=== PATIENT | male | born 1960 | race Caucasian/White ===

== ENCOUNTER → 2019-05-29 | Outpatient (CLI) | payer MEDICAID ==
[2019-05-29 12:39] LABS: Appearance,Urine Clear (Clear); Bilirubin,Urine Negative (Negative); Blood,Urine Negative (Negative); Color,Urine Light Yellow; Glucose,Urine (UA) 4+ (Negative); Hyaline Casts,Urine 1 /lpf (0-2); Ketones,Urine Negative (Negative); Leukocyte Esterase,Urine Negative (Negative); Mucus,Urine Rare /hpf; Nitrite,Urine Negative (Negative); PH, Urine 5.5 (5.0-8.0); Protein,Urine 1+ (Negative); RBC,Urine 1 /hpf (0-5); Specific Gravity,Urine 1.008 (1.001-1.035); Squamous Epithelial Cell,Urine <1 /hpf (0-4); Urobilinogen,Urine <2.0 mg/dL (<2.0)
[2019-05-29 16:56] LABS: African American GFR (CKD) 35.5 (60.0-200.0); Calcium 9.4 mg/dL (8.7-10.3); Non-African American GFR(CKD) 30.6 (60.0-200.0); Phosphorus 3.2 mg/dL (2.4-5.1); Potassium 4.2 mmol/L (3.5-5.5); Uric Acid 8.6 mg/dL (3.7-8.7)
== END | disposition home or self-care (01) ==
LOC: LABWHC1 11:41
PROVIDERS: ATTEND Internal Medicine
DX: M10.9 Gout, unspecified (principal); D63.1 Anemia in chronic kidney disease; N18.3 Chronic kidney disease, stage 3 (moderate); E55.9 Vitamin D deficiency, unspecified
CPT/HCPCS: 36415; 80048; 81001; 82043; 82306; 82570; 83970; 84100; 84550

== ENCOUNTER → 2020-04-19 | Outpatient (CLI) | payer MEDICAID ==
[2020-04-19 10:34] LABS: Basophils # (A) 0.1 k/uL (0-0.2); Basophils % (A) 1 %; Eosinophils # (A) 0.2 k/uL (0-0.7); Eosinophils % (A) 3 %; HCT 46.9 % (39.0-53.0); Lymphocytes # (A) 1.3 k/uL (1.0-4.8); Lymphocytes % (A) 21 %; MCH 29.4 pg (25.0-35.0); MCHC 32.1 g/dL (31.0-37.0); MCV 91.7 fL (80.0-100.0); Mean Platelet Volume 6.8; Monocytes # (A) 0.3 k/uL (0-1.0); Monocytes % (A) 5 %; Neutrophils # (A) 4.5 k/uL (1.3-7.7); Neutrophils % (A) 69 %; Platelet Count 192 k/uL (150-450); RBC 5.11 m/uL (4.30-5.90); RDW 14.2 % (11.5-15.5); WBC 6.4 k/uL (3.8-10.6)
[2020-04-19 10:53] LABS: Appearance,Urine Clear (Clear); Bilirubin,Urine Negative (Negative); Blood,Urine Negative (Negative); Color,Urine Light Yellow; Glucose,Urine (UA) Negative (Negative); Ketones,Urine Negative (Negative); Leukocyte Esterase,Urine Negative (Negative); Nitrite,Urine Negative (Negative); Protein,Urine Negative (Negative); Specific Gravity,Urine 1.009 (1.001-1.035); Urobilinogen,Urine <2.0 mg/dL (<2.0)
[2020-04-19 11:14] LABS: Creatinine,Urine Random 59.8 mg/dL; Protein/Creatinine Ratio,Urine 0.334
[2020-04-19 15:29] LABS: % Iron Saturation 27.76 (15.00-50.00); African American GFR (CKD) 35.2 (60.0-200.0); Albumin 4.2 g/dL (3.80-4.90); BUN/Creat Ratio 17.39 Ratio (12.00-20.00); Calcium 9.8 mg/dL (8.7-10.3); Magnesium 2.3 mg/dL (1.5-2.4); Non-African American GFR(CKD) 30.4 (60.0-200.0); Phosphorus 3.5 mg/dL (2.4-5.1); Potassium 4.2 mmol/L (3.5-5.5); Uric Acid 6.6 mg/dL (3.7-8.7)
[2020-04-19 15:37] LABS: Ferritin 199.6 ng/mL (22.0-322.0)
== END | disposition home or self-care (01) ==
LOC: LABWHC1 09:44
PROVIDERS: ATTEND Nurse Practitioner Adult Health
DX: N18.30 Chronic kidney disease, stage 3 unspecified (principal)
CPT/HCPCS: 36415; 80048; 81003; 82040; 82306; 82570; 82728; 83540; 83550; 83735; 83970; 84100; 84156; 84550; 85025

== ENCOUNTER → 2020-05-10 | Outpatient (CLI) | payer MEDICAID ==
--- NOTE | 2020-05-10 15:50 | US ---
EXAMINATION TYPE: US kidneys/renal and bladder DATE OF EXAM: 05/10/2020 COMPARISON: NONE CLINICAL HISTORY: N18.3 CKD. renal cell carcinoma on the right side, surgery 1999, patient states his left renal has always been smaller in size EXAM MEASUREMENTS: Right Kidney: 10.0 x 5.4 x 4.8 cm Left Kidney: 8.6 x 4.4 x 4.7 cm Right Kidney: lobular contour from surgery in 1999, otherwise wnl Left Kidney: smaller in size, no hydronephrosis or masses seen Bladder: wnl Bilateral Jets seen: Yes incidental finding of enlarged spleen = 15.2cm, when asking patient he states this is nothing new. There is no evidence for hydronephrosis at this point in time. No nephrolithiasis is seen. No nathaly s are identified. The urinary bladder is anechoic. Bilateral ureteral jets are seen. IMPRESSION: Postoperative changes right kidney. Splenomegaly is noted.
== END | disposition home or self-care (01) ==
LOC: RADUSWWP 15:12
PROVIDERS: ATTEND Internal Medicine
DX: R16.1 Splenomegaly, not elsewhere classified (principal); N18.30 Chronic kidney disease, stage 3 unspecified; Z98.890 Other specified postprocedural states
CPT/HCPCS: 76770

== ENCOUNTER → 2020-08-08 | Outpatient (CLI) | payer MEDICAID ==
[2020-08-08 17:03] LABS: Appearance,Urine Clear (Clear); Bilirubin,Urine Negative (Negative); Blood,Urine Negative (Negative); Color,Urine Light Yellow; Glucose,Urine (UA) Negative (Negative); Ketones,Urine Negative (Negative); Leukocyte Esterase,Urine Negative (Negative); Nitrite,Urine Negative (Negative); Protein,Urine Negative (Negative); Specific Gravity,Urine 1.006 (1.001-1.035); Urobilinogen,Urine <2.0 mg/dL (<2.0)
[2020-08-09 00:55] LABS: Basophils # (A) 0.07 X 10*3/uL (0.00-0.10); Basophils % (A) 0.9 %; Eosinophils # (A) 0.12 X 10*3/uL (0.04-0.35); Eosinophils % (A) 1.6 %; HCT 45.5 % (39.6-50.0); HGB 14.9 g/dL (13.0-17.0); Lymphocytes # (A) 1.75 X 10*3/uL (0.90-5.00); MCH 30.2 pg (27.0-32.0); MCHC 32.7 g/dL (32.0-37.0); MCV 92.3 fL (80.0-97.0); Mean Platelet Volume 9.8 fL (9.5-12.2); Monocytes # (A) 0.46 X 10*3/uL (0.20-1.00); Neutrophils # (A) 5.14 X 10*3/uL (1.80-7.70); Neutrophils % (A) 67.5 %; Platelet Count 199 X 10*3/uL (140-440); RBC 4.93 X 10*6/uL (4.40-5.60); RDW 13.5 % (11.5-14.5); WBC 7.62 X 10*3/uL (4.50-10.00)
[2020-08-09 04:25] LABS: % Iron Saturation 40.77 (15.00-50.00); African American GFR (CKD) 39.3 (60.0-200.0); Albumin 4.4 g/dL (3.80-4.90); Anion Gap 8.5 mmol/L (4.00-12.00); BUN/Creat Ratio 17.14 Ratio (12.00-20.00); Calcium 9.3 mg/dL (8.7-10.3); Carbon Dioxide 29.5 mmol/L (21.6-31.8); Globulin 2.2 g/dL (1.6-3.3); Non-African American GFR(CKD) 33.9 (60.0-200.0); Phosphorus 3.4 mg/dL (2.4-5.1); Potassium 4.2 mmol/L (3.5-5.5); Total Bilirubin 0.6 mg/dL (0.2-1.2); Total Protein 6.6 g/dL (6.2-8.2); Uric Acid 6.7 mg/dL (3.7-8.7)
[2020-08-09 04:33] LABS: Ferritin 155.1 ng/mL (22.0-322.0)
[2020-08-09 06:43] LABS: Urine Creatinine 22.7 mg/dL
== END | disposition home or self-care (01) ==
LOC: LABWHC1 16:00
PROVIDERS: ATTEND Internal Medicine
DX: N18.30 Chronic kidney disease, stage 3 unspecified (principal); N39.0 Urinary tract infection, site not specified; D64.9 Anemia, unspecified; R80.9 Proteinuria, unspecified; N25.81 Secondary hyperparathyroidism of renal origin; E55.9 Vitamin D deficiency, unspecified; M10.9 Gout, unspecified
CPT/HCPCS: 36415; 80053; 81003; 82043; 82306; 82570; 82728; 83540; 83550; 83970; 84100; 84550; 85025

== ENCOUNTER → 2020-12-02 | Outpatient (CLI) | payer MEDICAID ==
[2020-12-02 11:46] LABS: Appearance,Urine Clear (Clear); Bilirubin,Urine Negative (Negative); Blood,Urine Negative (Negative); Color,Urine Light Yellow; Glucose,Urine (UA) Negative (Negative); Ketones,Urine Negative (Negative); Leukocyte Esterase,Urine Negative (Negative); Nitrite,Urine Negative (Negative); Protein,Urine Negative (Negative); Specific Gravity,Urine 1.008 (1.001-1.035); Urobilinogen,Urine <2.0 mg/dL (<2.0)
[2020-12-02 17:02] LABS: Basophils # (A) 0.06 X 10*3/uL (0.00-0.10); Basophils % (A) 0.9 %; Eosinophils % (A) 3.1 %; HGB 15.1 g/dL (13.0-17.0); Lymphocytes # (A) 1.48 X 10*3/uL (0.90-5.00); Lymphocytes % (A) 23.3 %; MCH 30.4 pg (27.0-32.0); MCHC 32.8 g/dL (32.0-37.0); MCV 92.7 fL (80.0-97.0); Mean Platelet Volume 9.9 fL (9.5-12.2); Monocytes # (A) 0.34 X 10*3/uL (0.20-1.00); Monocytes % (A) 5.4 %; Neutrophils # (A) 4.24 X 10*3/uL (1.80-7.70); Neutrophils % (A) 66.8 %; Platelet Count 179 X 10*3/uL (140-440); RBC 4.96 X 10*6/uL (4.40-5.60); RDW 13.3 % (11.5-14.5); WBC 6.35 X 10*3/uL (4.50-10.00)
[2020-12-02 17:26] LABS: % Iron Saturation 31.62 (15.00-50.00); Magnesium 2.4 mg/dL (1.5-2.4); Phosphorus 3.4 mg/dL (2.4-5.1); Uric Acid 6.7 mg/dL (3.7-8.7)
[2020-12-02 17:28] LABS: Urine Creatinine 34.4 mg/dL
[2020-12-02 17:36] LABS: Ferritin 174.1 ng/mL (22.0-322.0)
[2020-12-02 17:40] LABS: ALT 37 U/L (10-49); AST 24 U/L (14-35); African American GFR (CKD) 36.9 (60.0-200.0); Albumin/Globulin Ratio 1.67 (1.60-3.17); Alkaline Phosphatase 146 U/L (41-126); BUN/Creat Ratio 20.91 Ratio (12.00-20.00); C Reactive Protein <0.4 mg/dL (0.0-0.8); Calcium 9.3 mg/dL (8.7-10.3); Carbon Dioxide 31.2 mmol/L (21.6-31.8); Chloride 104 mmol/L (96-109); Chol/HDL Ratio 5.21; Cholesterol 125 mg/dL (0-200); Creatine Kinase 91 U/L (35-257); Globulin 2.7 g/dL (1.6-3.3); Glucose 148 mg/dL (70-110); LDL Cholesterol,Calculated 73.6 mg/dL (0.0-131.0); Non-African American GFR(CKD) 31.8 (60.0-200.0); Potassium 4.3 mmol/L (3.5-5.5); Prostate Specific Antigen 5.1 ng/mL (0.0-3.5); Sodium 141 mmol/L (135-145); Total Bilirubin 0.8 mg/dL (0.3-1.2); Total Protein 7.2 g/dL (6.2-8.2)
[2020-12-02 20:00] LABS: Erythrocyte Sedimentation Rate 12 mm/Hr (0-20)
== END | disposition home or self-care (01) ==
LOC: LABWHC1 10:05
PROVIDERS: ATTEND Internal Medicine
DX: Z13.220 Encounter for screening for lipoid disorders (principal); Z12.5 Encounter for screening for malignant neoplasm of prostate; R53.82 Chronic fatigue, unspecified; D64.9 Anemia, unspecified; N39.0 Urinary tract infection, site not specified; R80.9 Proteinuria, unspecified; N25.81 Secondary hyperparathyroidism of renal origin; E55.9 Vitamin D deficiency, unspecified; M10.9 Gout, unspecified; N18.32 Chronic kidney disease, stage 3b
CPT/HCPCS: 36415; 80053; 80061; 81003; 82043; 82306; 82550; 82570; 82728; 83540; 83550; 83735; 83970; 84100; 84153; 84443; 84550; 85025; 85652; 86140

== ENCOUNTER → 2021-04-16 | Outpatient (CLI) | payer MEDICAID ==
[2021-04-16 12:48] LABS: Basophils # (A) 0.1 k/uL (0-0.2); Basophils % (A) 1 %; Eosinophils # (A) 0.2 k/uL (0-0.7); Eosinophils % (A) 3 %; HCT 44.4 % (39.0-53.0); HGB 14.4 gm/dL (13.0-17.5); Lymphocytes # (A) 1.4 k/uL (1.0-4.8); Lymphocytes % (A) 21 %; MCH 30.4 pg (25.0-35.0); MCHC 32.5 g/dL (31.0-37.0); MCV 93.4 fL (80.0-100.0); Mean Platelet Volume 6.9; Monocytes # (A) 0.3 k/uL (0-1.0); Monocytes % (A) 4 %; Neutrophils # (A) 4.6 k/uL (1.3-7.7); Neutrophils % (A) 69 %; Platelet Count 167 k/uL (150-450); RBC 4.75 m/uL (4.30-5.90); RDW 13.7 % (11.5-15.5); WBC 6.6 k/uL (3.8-10.6)
[2021-04-16 13:13] LABS: Calcium 9.1 mg/dL (8.4-10.2); Potassium 4.3 mmol/L (3.5-5.1)
== END | disposition home or self-care (01) ==
LOC: LABPAT 11:34
PROVIDERS: ATTEND Urology
DX: Z01.812 Encounter for preprocedural laboratory examination (principal); C61 Malignant neoplasm of prostate
CPT/HCPCS: 80048; 85025; 86850; 86900; 86901

== ENCOUNTER 2021-04-25 10:08 | Day surgery (SDC) | payer MEDICAID ==
[2021-04-16 12:48] LABS: Basophils # (A) 0.1 k/uL (0-0.2); Basophils % (A) 1 %; Eosinophils # (A) 0.2 k/uL (0-0.7); Eosinophils % (A) 3 %; HCT 44.4 % (39.0-53.0); HGB 14.4 gm/dL (13.0-17.5); Lymphocytes # (A) 1.4 k/uL (1.0-4.8); Lymphocytes % (A) 21 %; MCH 30.4 pg (25.0-35.0); MCHC 32.5 g/dL (31.0-37.0); MCV 93.4 fL (80.0-100.0); Mean Platelet Volume 6.9; Monocytes # (A) 0.3 k/uL (0-1.0); Monocytes % (A) 4 %; Neutrophils # (A) 4.6 k/uL (1.3-7.7); Neutrophils % (A) 69 %; Platelet Count 167 k/uL (150-450); RBC 4.75 m/uL (4.30-5.90); RDW 13.7 % (11.5-15.5); WBC 6.6 k/uL (3.8-10.6)
[2021-04-16 13:13] LABS: Calcium 9.1 mg/dL (8.4-10.2); Potassium 4.3 mmol/L (3.5-5.1)
[2021-04-18 11:08] VITALS: BMI 30.5
--- NOTE | 2021-04-22 14:42 | P.GSHP ---
History of Present Illness H&P Date: 04/22/21 Chief Complaint: Prostate cancer The patient is a 60-year-old white male with significant lower urinary tract symptoms. He has been found to empty his bladder incompletely despite taking tamsulosin for over 5 years. His most recent postvoid residual was 294 mL. His PSA level has gradually risen to 5.1. He underwent a prostate ultrasound, revealing a prostate volume of 54 mL with a prominent median lobe. 2 of 12 biopsies showed low volume Peck 6 adenocarcinoma (right lateral base, right lateral mid). His Prolaris score is favorable (2.9). Oncologically, he is an excellent candidate for active surveillance. However, he has elected to undergo a nerve sparing robotic-assisted laparoscopic prostatectomy (RALP) both to eradicate the cancer and alleviate his obstructive voiding symptoms. - Constitutional Constitutional: Reports fatigue - Cardiovascular Cardiovascular: Reports edema, Reports high blood pressure - Genitourinary (Male) Genitourinary: Reports erectile dysfunction, Reports urinary hesitancy Past Medical History Past Medical History: Cancer, Diabetes Mellitus, Hearing Disorder / Deafness, Hyperlipidemia, Hypertension, Sleep Apnea/CPAP/BIPAP, Thyroid Disorder Additional Past Medical History / Comment(s): Slightly hard of hearing. Prostate cancer currently. Hx right kidney cancer (1999). CPAP use. Varicose veins. History of Any Multi-Drug Resistant Organisms: None Reported Past Surgical History: Hernia Repair Additional Past Surgical History / Comment(s): Partial right nephrectomy, hernia repair X2. Past Anesthesia/Blood Transfusion Reactions: No Reported Reaction Past Psychological History: No Psychological Hx Reported Smoking Status: Former smoker Past Alcohol Use History: None Reported Additional Past Alcohol Use History / Comment(s): Quit smoking in 1997. Past Drug Use History: None Reported - Past Family History Mother Family Medical History: Cancer Father Family Medical History: Cancer Medications and Allergies Home Medications Medication Instructions Recorded Confirmed Type Allopurinol [Zyloprim] 100 mg PO BID 04/18/21 04/18/21 History Aspirin 81 mg PO DAILY 04/18/21 04/18/21 History Atorvastatin Calcium [Lipitor] 10 mg PO DAILY 04/18/21 04/18/21 History Cholecalciferol [Vitamin D3 (25 50 mcg PO DAILY 04/18/21 04/18/21 History Mcg = 1000 Iu)] Cyanocobalamin (Vitamin B-12) 5,000 mcg PO DAILY 04/18/21 04/18/21 History [Vitamin B12] Dulaglutide [Trulicity] 1.5 mg SQ TU 04/18/21 04/18/21 History Enalapril Maleate 5 mg PO QAM 04/18/21 04/18/21 History Folic Acid-Vit B Complex-Vit C 1 mg PO DAILY 04/18/21 04/18/21 History [Nephrocaps] Furosemide(Unknown Dose) 1 tab PO DAILY PRN 04/18/21 04/18/21 History Insulin Detemir (Levemir) [Levemir] 50 unit SQ HS 04/18/21 04/18/21 History Levothyroxine Sodium [Synthroid] 75 mcg PO MOTUWETHFRSA 04/18/21 04/18/21 History Magnesium 400 mg PO DAILY 04/18/21 04/18/21 History Tamsulosin [Flomax] 0.4 mg PO DAILY 04/18/21 04/18/21 History calcitrioL [Calcitriol] 0.25 mcg PO DAILY 04/18/21 04/18/21 History Allergies Allergy/AdvReac Type Severity Reaction Status Date / Time No Known Allergies Allergy Verified 04/18/21 10:45 Surgical - Exam - General well developed, well nourished, no distress - Neck no masses, trachea midline - Respiratory normal respiratory effort - Abdomen Abdomen: soft, non tender, no guarding, no rigid, no rebound Hernia: none - Genitourinary normal penis with no external lesions, testicles non-tender - Rectum Rectum: normal sphincter tone, no masses, other (Prostate moderately enlarged but smooth) - Psychiatric oriented to time, oriented to person, oriented to place, speech is normal, memory intact Assessment and Plan (1) Malignant neoplasm of prostate Status: Acute Code(s): C61 - MALIGNANT NEOPLASM OF PROSTATE SNOMED Code(s): 270020184 Plan: Bilateral nerve sparing RALP. The procedure has been reviewed in detail with the patient and his . The anticipated perioperative course has been reviewed, as were potential risks which include anesthesia, bleeding, infection, neurovascular injury, bowel injury, urinary leak, vesical neck contracture, urinary incontinence, and erectile dysfunction. They understand the possibility that this will need to be converted to an open procedure. They're also aware of the unlikely but possible need for adjuvant therapy.
[~2021-04-25 10:08] MED LIST: HEPARIN SODIUM,PORCINE/PF 5,000 UNIT/0.5 ML SYRINGE SQ PRN
[2021-04-25] MEDS ORDERED: DEXAMETHASONE SOD PHOSPHATE 4 MG/ML 1 ML VIAL IV ONE (10:09)
[2021-04-25] MEDS ORDERED: ONDANSETRON 4 MG/2 ML VIAL IVP ONE (10:09)
[2021-04-25] MEDS ORDERED: SCOPOLAMINE 1.5MG/72HR PATCH TRANSDERM ONE (10:09)
[2021-04-25] MEDS ORDERED: MIDAZOLAM 2 MG/2 ML VIAL IV PRN (10:09)
[2021-04-25 11:19] LABS: Glucose,Whole Blood 129 mg/dL (75-99)
[2021-04-25] MEDS: LACTATED RINGERS 1,000 ML IV SCH (11:47)
[2021-04-25] MEDS ORDERED: LIDOCAINE 1% (10MG/ML) FOR IV START INTRADERMA ONE (11:48)
[2021-04-25] MEDS ORDERED: MIDAZOLAM 2 MG/2 ML VIAL IVP ONE (12:10)
[2021-04-25] MEDS ORDERED: fentaNYL (PF) 50 MCG/ML 2 ML AMP IVP ONE (12:10)
--- NOTE | 2021-04-25 12:49 | P.ANPRN ---
Procedure Note - Anesthesia - Nerve Block Performed Bilateral Erector Spinae Single Time Out Performed: Yes (1209) Date of Procedure: 04/25/21 Procedure Start Time: 12:10 Procedure Stop Time: 12:17 Location of Patient: PreOp Indication: Acute Post-Operative Pain, Requested by Surgeon Specifically requested for management of pain by DrCurtis: Luigi Sorensen Sedation Type: Sedate with meaningful contact maintained Preparation: Sterile Prep Position: Prone Needle Types: Pajunk Needle Gauge: 21 Ultrasound used to visualize needle placement: Yes Ultrasound used to observe medication spread: Yes Injectate: 0.5% Ropivacaine (see comment for volume) (15cc + 15cc nacl pf each side) Blood Aspirated: No Pain Paresthesia on Injection Noted: No Resistance on Injection: Normal Image Stored and Saved: Yes Events: Uneventful and Well Tolerated
[2021-04-25] MEDS ORDERED: MIDAZOLAM 2 MG/2 ML VIAL ONE (13:02)
[2021-04-25] MEDS ORDERED: GLYCOPYRROLATE 0.2 MG/ML 2 ML VIAL ONE (13:02)
[2021-04-25] MEDS ORDERED: fentaNYL (PF) 50 MCG/ML 2 ML AMP ONE (13:02)
[2021-04-25] MEDS ORDERED: HYDROmorphone (PF) 1 MG/ML ONE (13:02)
[2021-04-25] MEDS ORDERED: ROPIVACAINE 5 MG/ML 30 ML VIAL ONE (13:02)
[2021-04-25] MEDS ORDERED: NEOSTIGMINE 1 MG/ML 10 ML VIAL ONE (13:02)
[2021-04-25] MEDS ORDERED: SUCCINYLCHOLINE CHLORIDE 100 MG/5 ML SYR IV ONE (13:02)
[2021-04-25] MEDS ORDERED: SODIUM CHLORIDE 0.9% (PF) 10 ML VIAL ONE (13:02)
[2021-04-25] MEDS ORDERED: PROPOFOL 10 MG/ML 20 ML VIAL IV ONE (13:02)
[2021-04-25] MEDS ORDERED: LIDOCAINE 1% INJ 10MG/ML (20 ML MDV) ONE (13:02)
[2021-04-25] MEDS ORDERED: ROCURONIUM 10 MG/ML (5 ML VIAL) IV ONE (13:02)
[2021-04-25] MEDS ORDERED: BUPIVACAINE (PF) 0.25% 30 ML VIAL SQ ONE (13:51)
[2021-04-25] MEDS ORDERED: LACTATED RINGERS 1,000 ML IV ONE (15:02)
--- NOTE | 2021-04-25 17:23 | P.OP ---
Date of Procedure: 04/25/21 Preoperative Diagnosis: Adenocarcinoma of the prostate Postoperative Diagnosis: Same Procedure(s) Performed: Robotic-assisted laparoscopic prostatectomy (RALP) Anesthesia: RAUL Surgeon: Luigi Sorensen Estimated Blood Loss (ml): 100 IV fluids (ml): 1,500 Pathology: other (Prostate, seminal vesicles) Condition: stable Disposition: PACU Indications for Procedure: The patient is a 60-year-old white male with significant lower urinary tract symptoms. He has been found to empty his bladder incompletely despite taking tamsulosin for over 5 years. His most recent postvoid residual was 294 mL. His PSA level has gradually risen to 5.1. He underwent a prostate ultrasound, revealing a prostate volume of 54 mL with a prominent median lobe. 2 of 12 biopsies showed low volume Simms 6 adenocarcinoma (right lateral base, right lateral mid). His Prolaris score is favorable (2.9). Oncologically, he is an excellent candidate for active surveillance. However, he has elected to undergo a nerve sparing robotic-assisted laparoscopic prostatectomy (RALP) both to eradicate the cancer and alleviate his obstructive voiding symptoms. Operative Findings: Prominent median lobe. No evidence of extraprostatic disease. Description of Procedure: The patient was taken in the operating room and placed in the supine position. He was carefully positioned on a beanbag for stability. The abdomen and ex ternal genitalia were prepped and draped sterilely. A Nolasco catheter was inserted. The Veress needle was passed through the anterior abdominal wall immediately cephalad to the umbilicus, and insufflation was performed to a pressure of 20 mm Hg. Once insufflation was performed, the Veress needle was removed and a supraumbilical incision was made, through which an 8 mm camera port was placed. Under camera guidance, 3 8 mm robotic ports were placed, 2 on the left and one on the right. A 12 mm port was placed on the right lateral side for use as an case management assistant port. A 5 mm port was placed to the right of the camera port for suction. The patient was placed in Trendelenburg position, and docking was then performed to the [place] system utilizing a 4-arm approach. The abdomen was examined. The sigmoid colon was mobilized out of the pelvis. The peritoneum was incised lateral to the medial umbilical ligaments bilaterally, exposing the pubis. The peritoneum was then incised across the midline, allowing the bladder flap to be taken down. The endopelvic fascia was opened bilaterally, and muscular attachments from the urogenital diaphragm were swept away from the prostate. The vesical neck was incised transversely, down to the lumen. The Nolasco catheter was brought out through the anterior vesical neck incision and was used for traction. The patient was noted to have an enlarged median lobe. The posterior vesical neck was incised over the median lobe, and the median lobe was dissected away from the vesical neck. Dissection was then continued posteriorly, incising the anterior layer of the Denonvilliers fascia and exposing the vas deferens. Each were isolated and divided. Next, each of the seminal vesicles were dissected away from adjacent tissues, and vascular attac hments were cauterized and divided. The posterior leaf of Denonvilliers fascia was incised transversely, allowing entry into the plane between the prostate and rectum. With lateral spreading, this plane was developed down to the apex. This exposed the lateral vascular pedicles bilaterally. These were clipped and divided in an antegrade fashion, down to the apex. The use of electrocautery was minimized to prevent thermal damage to the nerves. The remaining apical attachments were swept away from the prostate. The dorsal venous complex was incised, as well as periurethral tissue. At this point, only the urethra remained intact. This was transected immediately distal to the prostatic apex using cold scissors. The specimen was placed within a specimen bag. The dorsal venous complex was sutured using a V-Loc suture in a running fashion. Some bleeding was noted from the left neurovascular bundle, and this was controlled by oversewing 3-0 Vicryl suture in a running fashion. A second V-Loc suture was then used to place the Jad stitch, incorporating the rhabdosphincter and the edge of Denonvilliers fascia. This allowed the bladder to be taken down to the urethra, leaving the vesical neck immediately adjacent to the urethra. The vesicourethral anastomosis was then performed using a V-Loc suture in a running fashion. The vesical neck was larger than the urethra, and the anastomosis was performed in a tennis racquet fashion. After completing the anastomosis, an 18-Sur[place]amese Nolasco catheter was placed and approximately 150 mL of 0.9 normal saline were instilled into the bladder. No extravasation of irrigant from the vesicourethral anastomosis was noted. A small amount of oozing was noted from the vascular pedicles, so Surgicel was placed bilaterally. Tisseel was sprayed into the pelvis over the vascular pedicles, dorsal vein, and vesicourethral anastomosis. The patient was returned to the supine position. Undocking was performed, and the specimen bag sutures were passed through the camera port. After removing all the ports and allowing all of the CO2 to be released from the peritoneal cavity, the camera port incision was enlarged to allow removal of the surgical specimen. The fascia of this incision was then closed using 0 PDS suture in a running fashion. Each of the skin incisions were then closed using 4-0 Monocryl suture in a subcuticular fashion. Marcaine was injected at each of the incision sites. Dermabond was applied to each incision. The Nolasco catheter was connected to gravity drainage. All sponge and needle counts were correct. The patient tolerated the procedure well was taken to the recovery room in stable condition.
[2021-04-25] MEDS ORDERED: KETOROLAC 15 MG/ML 1 ML VIAL IVP PRN (17:24)
[2021-04-25] MEDS ORDERED: ONDANSETRON 4 MG/2 ML VIAL IVP PRN (17:24)
[2021-04-25] MEDS ORDERED: HYDROmorphone 1 MG/ML 1 ML SYRINGE IVP PRN (17:24)
[2021-04-25] MEDS: HYDROmorphone 0.5 MG/0.5 ML SYRINGE IVP PRN ×2 (18:21→18:35)
[2021-04-25] MEDS: HEPARIN SODIUM,PORCINE/PF 5,000 UNIT/0.5 ML SYRINGE SQ SCH (20:08)
[2021-04-25] MEDS: allopurinoL 100 MG TAB PO SCH (20:08)
[2021-04-25] MEDS: SODIUM CHLORIDE 0.9% 1,000 ML IV SCH (20:14)
[2021-04-25] MEDS: INSULIN ASPART (NovoLOG) 100 UNIT/ML VIAL SQ SCH ×2 (20:45→22:39)
[2021-04-25 21:05] LABS: Glucose,Whole Blood 263 mg/dL (75-99)
[2021-04-26] MEDS: KETOROLAC 30 MG/ML 1 ML VIAL IVP PRN ×2 (04:30→12:11)
[2021-04-26] MEDS: SODIUM CHLORIDE 0.9% 1,000 ML IV SCH (04:30)
[2021-04-26] MEDS ORDERED: LEVOTHYROXINE 75 MCG TAB PO SCH (06:30)
[2021-04-26 07:48] LABS: Glucose,Whole Blood 118 mg/dL (75-99)
[2021-04-26] MEDS: INSULIN ASPART (NovoLOG) 100 UNIT/ML VIAL SQ SCH ×2 (08:02→13:31)
[2021-04-26] MEDS: allopurinoL 100 MG TAB PO SCH (08:03)
[2021-04-26] MEDS: HEPARIN SODIUM,PORCINE/PF 5,000 UNIT/0.5 ML SYRINGE SQ SCH (08:03)
[2021-04-26] MEDS ORDERED: lisinopriL 10 MG TAB PO SCH (09:00)
[2021-04-26] MEDS ORDERED: ATORVASTATIN 10 MG TAB PO SCH (09:00)
--- NOTE | 2021-04-26 10:58 | P.DS ---
Providers Expected date of discharge: 04/26/21 Attending physician: Luigi Sorensen Primary care physician: Heri Velez MD - Discharge Diagnosis(es) (1) Malignant neoplasm of prostate Current Visit: No Status: Acute Hospital Course: On the day of admission, the patient underwent an uncomplicated robotic-assisted laparoscopic prostatectomy (RALP). The postoperative course was unremarkable. The patient remained afebrile with stable vital signs. On the first postoperative day, he tolerated breakfast. He had ambulated a short distance without difficulty. He reported mild catheter discomfort, and minimal abdominal discomfort. On examination, the abdomen was soft and nondistended. The incisions were clean, dry, and intact. The Nolasco catheter was draining clear urine Procedures: Robotic-assisted laparoscopic prostatectomy (RALP) and 04/25/2021 Patient Condition at Discharge: Good Plan - Discharge Summary Discharge Rx Participant: Yes New Discharge Prescriptions: New Ciprofloxacin HCl [Cipro] 250 mg PO Q12HR #6 tablet Ketorolac [Toradol] 10 mg PO Q6HR PRN #12 tab PRN Reason: Pain No Action Aspirin 81 mg PO DAILY Allopurinol [Zyloprim] 100 mg PO BID Furosemide(Unknown Dose) 1 tab PO DAILY PRN PRN Reason: Swelling Cyanocobalamin (Vitamin B-12) [Vitamin B12] 5,000 mcg PO DAILY Insulin Detemir (Levemir) [Levemir] 50 unit SQ HS Cholecalciferol [Vitamin D3 (25 Mcg = 1000 Iu)] 50 mcg PO DAILY Tamsulosin [Flomax] 0.4 mg PO DAILY Levothyroxine Sodium [Synthroid] 75 mcg PO MOTUWETHFRSA Folic Acid-Vit B Complex-Vit C [Nephrocaps] 1 mg PO DAILY Atorvastatin Calcium [Lipitor] 10 mg PO DAILY calcitrioL [Calcitriol] 0.25 mcg PO DAILY Magnesium 400 mg PO DAILY Enalapril Maleate 5 mg PO QAM Dulaglutide [Trulicity] 1.5 mg SQ TU Discharge Medication List Allopurinol [Zyloprim] 100 mg PO BID 04/18/21 [History] Aspirin 81 mg PO DAILY 04/18/21 [History] Atorvastatin Calcium [Lipitor] 10 mg PO DAILY 04/18/21 [History] Cholecalciferol [Vitamin D3 (25 Mcg = 1000 Iu)] 50 mcg PO DAILY 04/18/21 [History] Cyanocobalamin (Vitamin B-12) [Vitamin B12] 5,000 mcg PO DAILY 04/18/21 [History] Dulaglutide [Trulicity] 1.5 mg SQ TU 04/18/21 [History] Enalapril Maleate 5 mg PO QAM 04/18/21 [History] Folic Acid-Vit B Complex-Vit C [Nephrocaps] 1 mg PO DAILY 04/18/21 [History] Furosemide(Unknown Dose) 1 tab PO DAILY PRN 04/18/21 [History] Insulin Detemir (Levemir) [Levemir] 50 unit SQ HS 04/18/21 [History] Levothyroxine Sodium [Synthroid] 75 mcg PO MOTUWETHFRSA 04/18/21 [History] Magnesium 400 mg PO DAILY 04/18/21 [History] Tamsulosin [Flomax] 0.4 mg PO DAILY 04/18/21 [History] calcitrioL [Calcitriol] 0.25 mcg PO DAILY 04/18/21 [History] Ciprofloxacin HCl [Cipro] 250 mg PO Q12HR #6 tablet 04/25/21 [Rx] Ketorolac [Toradol] 10 mg PO Q6HR PRN #12 tab 04/25/21 [Rx] Follow up Appointment(s)/Referral(s): Luigi Sorensen MD [STAFF PHYSICIAN] - 05/07/21 Activity/Diet/Wound Care/Special Instructions: Discharge home with Nolasco catheter. Instruct patient to use overnight drainage bag as well as urinary leg bag. Okay to shower. Diet as tolerated. No lifting, driving, or strenuous activity. Reassure patient that abdominal wall ecchymosis and penoscrotal swelling are normal. Instruct patient to begin taking antibiotics one day prior to Nolasco catheter removal. Patient may resume aspirin on 04/29/2021. He should no longer take tamsulosin. Discharge Disposition: HOME SELF-CARE
[2021-04-26] MEDS: LACTATED RINGERS 1,000 ML IV SCH (12:13)
[2021-04-26 12:18] LABS: Glucose,Whole Blood 126 mg/dL (75-99)
[2021-04-26 13:25] VITALS: BP 118/70; PULSE 87; RESP 17; TEMP 98
== END 2021-04-26 14:46 | disposition home or self-care (01) ==
LOC: OR 10:08 → 5NMEDONC 17:16 → OR 04-26 14:46
PROVIDERS: ATTEND Urology
DX: C61 Malignant neoplasm of prostate (principal); E11.9 Type 2 diabetes mellitus without complications; E78.5 Hyperlipidemia, unspecified; I10 Essential (primary) hypertension; E07.9 Disorder of thyroid, unspecified; Z20.822 Contact with and (suspected) exposure to COVID-19; Z87.891 Personal history of nicotine dependence
CPT/HCPCS: 55866; 86900; 86901; 80048; 85025; 86850; 87635; J2250; J1100; J0690; J2405; J3010; J1170; J1644; 64999

== ENCOUNTER 2021-06-03 21:00 | Inpatient (IN) | payer MEDICAID ==
[2021-06-03] MEDS ORDERED: ONDANSETRON 4 MG/2 ML VIAL IVP STA (22:06)
[2021-06-03] MEDS ORDERED: SODIUM CHLORIDE 0.9% 1,000 ML IV STA (22:06)
[2021-06-03] MEDS ORDERED: PANTOPRAZOLE 40 MG/10 ML VIAL IVP STA (22:06)
[2021-06-03 22:38] LABS: Basophils # (A) 0.1 k/uL (0-0.2); Basophils % (A) 1 %; Eosinophils # (A) 0.2 k/uL (0-0.7); Eosinophils % (A) 1 %; HGB 12.3 gm/dL (13.0-17.5); Lymphocytes # (A) 1.7 k/uL (1.0-4.8); Lymphocytes % (A) 10 %; MCH 30.6 pg (25.0-35.0); MCHC 32.4 g/dL (31.0-37.0); MCV 94.3 fL (80.0-100.0); Mean Platelet Volume 7.4; Monocytes # (A) 0.5 k/uL (0-1.0); Monocytes % (A) 3 %; Neutrophils # (A) 14.1 k/uL (1.3-7.7); Neutrophils % (A) 85 %; Platelet Count 202 k/uL (150-450); RBC 4.03 m/uL (4.30-5.90); RDW 13.9 % (11.5-15.5); WBC 16.7 k/uL (3.8-10.6)
[2021-06-03 22:55] LABS: Partial Thromboplastin Time 20.9 sec (22.0-30.0); Prothrombin Time 10.9 sec (9.0-12.0)
[2021-06-03 23:23] LABS: Albumin 3.1 g/dL (3.5-5.0); Calcium 8.8 mg/dL (8.4-10.2); Magnesium 1.8 mg/dL (1.6-2.3); Potassium 5.4 mmol/L (3.5-5.1); Total Bilirubin 0.4 mg/dL (0.2-1.3); Total Protein 5.4 g/dL (6.3-8.2)
--- NOTE | 2021-06-03 23:59 | CT ---
EXAMINATION TYPE: CT abdomen pelvis wo con DATE OF EXAM: 06/03/2021 COMPARISON: None HISTORY: GI bleed. CT DLP: 726.6 mGycm Automated exposure control for dose reduction was used. Images obtained from the diaphragm to the floor the pelvis with no contrast. Lung bases are clear of infiltrate. There is no pleural effusion. Heart size is normal. There is no p ericardial effusion. Liver spleen and stomach pancreas appear intact. The bowel gas are not dilated. Gallbladder appears n ormal. There is no adrenal mass. There are some surgical clips in the retroperitoneum on the right side abov e the right kidney. Kidneys have normal size. There is no hydronephrosis. Ureters are not dilated. Th ere is no retroperitoneal adenopathy. Bladder distends smoothly. There is no inguinal hernia. There i s no free fluid in the pelvis. There is no evidence of a pelvic mass. There is large appendix measuring 12 mm but no sign of inflammation. There is no mesenteric edema. There is no ascites or free air. There is no bowel obstruction. There i s 1 cm umbilical hernia that contains fat. The lumbar vertebrae have normal alignment. There is no compression fracture. Bony pelvis is intact. The hip joints are intact. IMPRESSION: Large air-filled appendix but no sign of inflammation. No renal stone or obstruction. Distended gas-f illed large bowel consistent with a mild ileus.
[2021-06-04] MEDS ORDERED: ONDANSETRON 4 MG/2 ML VIAL IVP PRN (00:45)
[2021-06-04] MEDS ORDERED: NALOXONE 0.4 MG/ML 1 ML VIAL IV PRN (00:45)
--- NOTE | 2021-06-04 00:51 | ED ---
GI Bleed HPI - General Chief complaint: GI Bleed Stated complaint: possible GI bleed Time Seen by Provider: 06/03/21 21:55 Source: patient, RN notes reviewed Mode of arrival: ambulatory Limitations: no limitations - History of Present Illness Initial comments: Patient is a 60-year-old male that presents to the emergency department for possible GI bleed. Patient notes that he had a bowel movement late last night noted some blood in the toilet red notes that she could smell from the living room and thought that it smelled kind of flung he so she came to the emergency room. Patient did have a prostatectomy approximately 1-2 months ago. Patient notes no abdominal pain nausea or vomiting. He does notes the blood in his stool with a darker color stool. Patient denied any chest pain shortness of breath headache diarrhea constipation fever fatigue chills. - Related Data Home Medications Medication Instructions Recorded Confirmed Allopurinol [Zyloprim] 100 mg PO BID 04/18/21 06/03/21 Aspirin 81 mg PO DAILY 04/18/21 06/03/21 Atorvastatin Calcium [Lipitor] 10 mg PO DAILY 04/18/21 06/03/21 Cholecalciferol [Vitamin D3 (25 50 mcg PO DAILY 04/18/21 06/03/21 Mcg = 1000 Iu)] Cyanocobalamin (Vitamin B-12) 5,000 mcg PO DAILY 04/18/21 06/03/21 [Vitamin B12] Dulaglutide [Trulicity] 1.5 mg SQ TU 04/18/21 06/03/21 Enalapril Maleate 5 mg PO DAILY 04/18/21 06/03/21 Folic Acid-Vit B Complex-Vit C 1 mg PO DAILY 04/18/21 06/03/21 [Nephrocaps] Levothyroxine Sodium [Synthroid] 75 mcg PO MOTUWETHFRSA 04/18/21 06/03/21 Magnesium 400 mg PO DAILY 04/18/21 06/03/21 Tamsulosin [Flomax] 0.4 mg PO DAILY 04/18/21 06/03/21 Furosemide [Lasix] 40 mg PO Q48H 06/03/21 06/03/21 Insulin Detemir [Levemir Flextouch 30 units SQ HS 06/03/21 06/03/21 Pen] Ketorolac [Toradol] 10 mg PO Q6H PRN 06/03/21 06/03/21 calcitrioL [Calcitriol] 0.5 mcg PO HOWARD 06/03/21 06/03/21 Allergies Allergy/AdvReac Type Severity Reaction Status Date / Time No Known Allergies Allergy Verified 06/03/21 22:45 Review of Systems ROS Statement: Those systems with pertinent positive or pertinent negative responses have been documented in the HPI. ROS Other: All systems not noted in ROS Statement are negative. Past Medical History Past Medical History: Diabetes Mellitus, Hypertension Additional Past Medical History / Comment(s): Partial nephrectomy. History of Any Multi-Drug Resistant Organisms: None Reported Past Surgical History: No Surgical Hx Reported, Prostate Surgery Additional Past Surgical History / Comment(s): partial nephrectomy. hernia Repair. Past Psychological History: No Psychological Hx Reported Smoking Status: Never smoker Past Alcohol Use History: None Reported Past Drug Use History: None Reported General Exam Limitations: no limitations General appearance: alert, in no apparent distress Head exam: Present: atraumatic, normocephalic, normal inspection Eye exam: Present: normal appearance, PERRL, EOMI. Absent: scleral icterus, conjunctival injection, periorbital swelling ENT exam: Present: normal exam, mucous membranes moist Neck exam: Present: normal inspection Respiratory exam: Present: normal lung sounds bilaterally. Absent: respiratory distress, wheezes, rales, rhonchi, stridor Cardiovascular Exam: Present: regular rate, normal rhythm, normal heart sounds. Absent: systolic murmur, diastolic murmur, rubs, gallop, clicks GI/Abdominal exam: Present: soft, normal bowel sounds. Absent: distended, tenderness, guarding, rebound, rigid Rectal exam: Present: normal inspection, normal rectal tone, heme (+) stool, bloody stool. Absent: fecal impaction, hemorrhoids, mass, tenderness Extremities exam: Present: normal inspection, full ROM, normal capillary refill. Absent: tenderness, pedal edema, joint swelling, calf tenderness Neurological exam: Present: alert, oriented X3 Psychiatric exam: Present: normal affect, normal mood Skin exam: Present: warm, dry, intact, normal color. Absent: rash Course Vital Signs 06/03/21 06/03/21 06/03/21 21:14 23:23 23:24 Temperature 97.8 F Pulse Rate 117 H 96 80 Respiratory 20 18 16 Rate Blood Pressure 84/59 105/47 96/62 O2 Sat by Pulse 100 99 98 Oximetry 06/04/21 00:40 Temperature Pulse Rate 92 Respiratory 18 Rate Blood Pressure 113/67 O2 Sat by Pulse 97 Oximetry Medical Decision Making - Medical Decision Making 60-year-old male complaining of possible GI bleed. Patient only takes baby aspirin. Labs, 1 L normal saline, 4 mg of Zofran, 40 mg of pantoprazole, CT of the abdomen and pelvis ordered. Labs: White blood cells 16.7, hemoglobin 12.3 a 2 g drop in just over a month, CMP shows poor kidney function. Occult blood positive Computed tomography scan shows a air-filled appendix but no inflammation, no other acute process. Given positive occult blood and drop in hemoglobin patient will be admitted to hospital. Case discussed with Dr. Manfred Valerio was consulted from [facility] on Consult. - Lab Data Result diagrams: 06/03/21 22:16 06/03/21 22:16 Lab Results 06/03/21 06/03/21 06/03/21 Range/Units 22:16 22:16 22:16 WBC 16.7 H (3.8-10.6) k/uL RBC 4.03 L (4.30-5.90) m/uL Hgb 12.3 L (13.0-17.5) gm/dL Hct 38.0 L (39.0-53.0) % MCV 94.3 (80.0-100.0) fL MCH 30.6 (25.0-35.0) pg MCHC 32.4 (31.0-37.0) g/dL RDW 13.9 (11.5-15.5) % Plt Count 202 (150-450) k/uL MPV 7.4 Neutrophils % 85 % Lymphocytes % 10 % Monocytes % 3 % Eosinophils % 1 % Basophils % 1 % Neutrophils # 14.1 H (1.3-7.7) k/uL Lymphocytes # 1.7 (1.0-4.8) k/uL Monocytes # 0.5 (0-1.0) k/uL Eosinophils # 0.2 (0-0.7) k/uL Basophils # 0.1 (0-0.2) k/uL PT 10.9 (9.0-12.0) sec INR 1.0 (<1.2) APTT 20.9 L (22.0-30.0) sec Sodium (137-145) mmol/L Potassium (3.5-5.1) mmol/L Chloride (98-107) mmol/L Carbon Dioxide (22-30) mmol/L Anion Gap mmol/L BUN (9-20) mg/dL Creatinine (0.66-1.25) mg/dL Est GFR (CKD-EPI)AfAm (>60 ml/min/1.73 sqM) Est GFR (CKD-EPI)NonAf (>60 ml/min/1.73 sqM) Glucose (74-99) mg/dL Plasma Lactic Acid Shant (0.7-2.0) mmol/L Calcium (8.4-10.2) mg/dL Magnesium (1.6-2.3) mg/dL Total Bilirubin (0.2-1.3) mg/dL AST (17-59) U/L ALT (4-49) U/L Alkaline Phosphatase (38-126) U/L Troponin I (0.000-0.034) ng/mL Total Protein (6.3-8.2) g/dL Albumin (3.5-5.0) g/dL Lipase (23-300) U/L Stool Occult Blood Positive (Negative) Blood Type Blood Type Recheck Bld Type Recheck Status Antibody Screen Spec Expiration Date 06/03/21 06/03/21 06/03/21 Range/Units 22:16 22:16 22:16 WBC (3.8-10.6) k/uL RBC (4.30-5.90) m/uL Hgb (13.0-17.5) gm/dL Hct (39.0-53.0) % MCV (80.0-100.0) fL MCH (25.0-35.0) pg MCHC (31.0-37.0) g/dL RDW (11.5-15.5) % Plt Count (150-450) k/uL MPV Neutrophils % % Lymphocytes % % Monocytes % % Eosinophils % % Basophils % % Neutrophils # (1.3-7.7) k/uL Lymphocytes # (1.0-4.8) k/uL Monocytes # (0-1.0) k/uL Eosinophils # (0-0.7) k/uL Basophils # (0-0.2) k/uL PT (9.0-12.0) sec INR (<1.2) APTT (22.0-30.0) sec Sodium 131 L (137-145) mmol/L Potassium 5.4 H (3.5-5.1) mmol/L Chloride 98 (98-107) mmol/L Carbon Dioxide 25 (22-30) mmol/L Anion Gap 8 mmol/L BUN 59 H (9-20) mg/dL Creatinine 2.23 H (0.66-1.25) mg/dL Est GFR (CKD-EPI)AfAm 36 (>60 ml/min/1.73 sqM) Est GFR (CKD-EPI)NonAf 31 (>60 ml/min/1.73 sqM) Glucose 454 H (74-99) mg/dL Plasma Lactic Acid Shant 1.8 (0.7-2.0) mmol/L Calcium 8.8 (8.4-10.2) mg/dL Magnesium 1.8 (1.6-2.3) mg/dL Total Bilirubin 0.4 (0.2-1.3) mg/dL AST 18 (17-59) U/L ALT 21 (4-49) U/L Alkaline Phosphatase 141 H (38-126) U/L Troponin I <0.012 (0.000-0.034) ng/mL Total Protein 5.4 L (6.3-8.2) g/dL Albumin 3.1 L (3.5-5.0) g/dL Lipase 360 H (23-300) U/L Stool Occult Blood (Negative) Blood Type Blood Type Recheck Bld Type Recheck Status Antibody Screen Spec Expiration Date 06/03/21 Range/Units 22:16 WBC (3.8-10.6) k/uL RBC (4.30-5.90) m/uL Hgb (13.0-17.5) gm/dL Hct (39.0-53.0) % MCV (80.0-100.0) fL MCH (25.0-35.0) pg MCHC (31.0-37.0) g/dL RDW (11.5-15.5) % Plt Count (150-450) k/uL MPV Neutrophils % % Lymphocytes % % Monocytes % % Eosinophils % % Basophils % % Neutrophils # (1.3-7.7) k/uL Lymphocytes # (1.0-4.8) k/uL Monocytes # (0-1.0) k/uL Eosinophils # (0-0.7) k/uL Basophils # (0-0.2) k/uL PT (9.0-12.0) sec INR (<1.2) APTT (22.0-30.0) sec Sodium (137-145) mmol/L Potassium (3.5-5.1) mmol/L Chloride (98-107) mmol/L Carbon Dioxide (22-30) mmol/L Anion Gap mmol/L BUN (9-20) mg/dL Creatinine (0.66-1.25) mg/dL Est GFR (CKD-EPI)AfAm (>60 ml/min/1.73 sqM) Est GFR (CKD-EPI)NonAf (>60 ml/min/1.73 sqM) Glucose (74-99) mg/dL Plasma Lactic Acid Shant (0.7-2.0) mmol/L Calcium (8.4-10.2) mg/dL Magnesium (1.6-2.3) mg/dL Total Bilirubin (0.2-1.3) mg/dL AST (17-59) U/L ALT (4-49) U/L Alkaline Phosphatase (38-126) U/L Troponin I (0.000-0.034) ng/mL Total Protein (6.3-8.2) g/dL Albumin (3.5-5.0) g/dL Lipase (23-300) U/L Stool Occult Blood (Negative) Blood Type O Positive Blood Type Recheck O Pos Bld Type Recheck Status No Antibody Screen NEGATIVE Spec Expiration Date 06/06/20212315 - Radiology Data Radiology results: report reviewed, image reviewed CT of the abdomen and pelvis: Large air-filled appendix but no sign of inflammation. No renal stones or obstruction. Distended gas-filled large bowel consistent with mild ileus. Disposition Clinical Impression: Hematochezia, Melena, GI bleed Disposition: ADMITTED IP TO THIS [facility] Condition: Stable Is patient prescribed a controlled substance at d/c from ED?: No Referrals: Heri Velez MD [Primary Care Provider] - 1-2 days Time of Disposition: 00:51
[2021-06-04] MEDS ORDERED: INSULIN ASPART (NovoLOG) 100 UNIT/ML VIAL SQ ONE (01:22)
--- NOTE | 2021-06-04 01:29 | P.HPIM ---
History of Present Illness H&P Date: 06/04/21 Chief Complaint: GI bleed 60 year old male with HTN, DM , CKD, prostate cancer patient comes in with sudden episode of fresh bright blood per rectum, without abd pain, patient became dizzy and lightheaded with some mild stomach growls . he never experienced anything like this before, he denies being on any blood thinners, and denies taking any NSAIDs except for Aspirin. denies recent travel, denies any unsanitary food patient had prostate surgery about a month ago , and blood work today showed a drop in hgb of 2 gms patient currently laying down comfortably , denies any chest pain , trouble breathing, dizziness, or abd pain , he denies any alcohol abuse, or history of stomach ulcers Patient reports multiple colonoscopies in the past, nothing other than benign polyps CT of the abd showed no acute pathology except for gas filled bowels Review of Systems Pertinent positives as noted in HPI. All other systems were reviewed and are negative Past Medical History Past Medical History: Diabetes Mellitus, Hypertension Additional Past Medical History / Comment(s): Partial nephrectomy. History of Any Multi-Drug Resistant Organisms: None Reported Past Surgical History: No Surgical Hx Reported, Prostate Surgery Additional Past Surgical History / Comment(s): partial nephrectomy. hernia Repair. Past Psychological History: No Psychological Hx Reported Smoking Status: Never smoker Past Alcohol Use History: None Reported Past Drug Use History: None Reported Medications and Allergies Home Medications Medication Instructions Recorded Confirmed Type Allopurinol [Zyloprim] 100 mg PO BID 04/18/21 06/03/21 History Aspirin 81 mg PO DAILY 04/18/21 06/03/21 History Atorvastatin Calcium [Lipitor] 10 mg PO DAILY 04/18/21 06/03/21 History Cholecalciferol [Vitamin D3 (25 50 mcg PO DAILY 04/18/21 06/03/21 History Mcg = 1000 Iu)] Cyanocobalamin (Vitamin B-12) 5,000 mcg PO DAILY 04/18/21 06/03/21 History [Vitamin B12] Dulaglutide [Trulicity] 1.5 mg SQ TU 04/18/21 06/03/21 History Enalapril Maleate 5 mg PO DAILY 04/18/21 06/03/21 History Folic Acid-Vit B Complex-Vit C 1 mg PO DAILY 04/18/21 06/03/21 History [Nephrocaps] Levothyroxine Sodium [Synthroid] 75 mcg PO MOTUWETHFRSA 04/18/21 06/03/21 History Magnesium 400 mg PO DAILY 04/18/21 06/03/21 History Tamsulosin [Flomax] 0.4 mg PO DAILY 04/18/21 06/03/21 History Furosemide [Lasix] 40 mg PO Q48H 06/03/21 06/03/21 History Insulin Detemir [Levemir Flextouch 30 units SQ HS 06/03/21 06/03/21 History Pen] Ketorolac [Toradol] 10 mg PO Q6H PRN 06/03/21 06/03/21 History calcitrioL [Calcitriol] 0.5 mcg PO HOWARD 06/03/21 06/03/21 History Allergies Allergy/AdvReac Type Severity Reaction Status Date / Time No Known Allergies Allergy Verified 06/03/21 22:45 Physical Exam Vitals: Vital Signs Temp Pulse Resp BP Pulse Ox 06/04/21 00:40 92 18 113/67 97 06/03/21 23:24 80 16 96/62 98 06/03/21 23:23 96 18 105/47 99 06/03/21 21:14 97.8 F 117 H 20 84/59 100 Intake and Output 06/03/21 06/03/21 06/04/21 14:59 22:59 06:59 Other: Weight 86.183 kg Constitutional: No acute distress, conversant, pleasant Eyes: Anicteric sclerae, moist conjunctiva, Pupils equal round reactive to light ENMT: NC/AT Oropharynx clear, no erythema, or exudates Neck: Supple no masses, or JVD No carotid bruits No thyromegaly Lungs: Clear to auscultation Clear to percussion Normal respiratory effort, no accessory muscle use Cardiovascular: Heart regular in rate and rhythm, No murmurs, gallops, or rubs No peripheral edema Abdominal: mild distention, increase tympanic note percussion Nontender, no guarding, rebound or rigidity Abdomen moving with respiration Normoactive bowel sounds No hepatomegaly, No splenomegaly No palpable mass No abdominal wall hernia noted Skin: Normal temperature, tone, texture, turgor No induration No subcutaneous nodules No rash, lesions No ulcers Extremities: No digital cyanosis No clubbing Pedal pulses intact and symmetrical Radial pulses intact and symmetrical No calf tenderness Psychiatric: Alert and oriented to person, place and time Appropriate affect fair judgement Neuro Muscles Strength 5/5 in all 4 extremities Sensation to light touch grossly present throughout Cranial nerves II-XII grossly intact No focal sensory deficits Lymphatics: no palpable cervical or supraclavicular , or inguinal lymph nodes Results CBC & Chem 7: 06/03/21 22:16 06/03/21 22:16 Labs: Abnormal Lab Results - Last 24 Hours (Table) 06/03/21 06/03/21 06/03/21 Range/Units 22:16 22:16 22:16 WBC 16.7 H (3.8-10.6) k/uL RBC 4.03 L (4.30-5.90) m/uL Hgb 12.3 L (13.0-17.5) gm/dL Hct 38.0 L (39.0-53.0) % Neutrophils # 14.1 H (1.3-7.7) k/uL APTT 20.9 L (22.0-30.0) sec Sodium 131 L (137-145) mmol/L Potassium 5.4 H (3.5-5.1) mmol/L BUN 59 H (9-20) mg/dL Creatinine 2.23 H (0.66-1.25) mg/dL Glucose 454 H (74-99) mg/dL Alkaline Phosphatase 141 H (38-126) U/L Total Protein 5.4 L (6.3-8.2) g/dL Albumin 3.1 L (3.5-5.0) g/dL Lipase 360 H (23-300) U/L Assessment and Plan Assessment: Acute symptomatic anemia secondary to GI bleed Plan Nothing by mouth PPI IV daily Surgery consultation CT abdomen showed gas-filled bowels Hold aspirin Monitor hemoglobin every 8 hours IV fluid hydration with normal saline Chronic conditions Diabetes mellitus, insulin sliding scale, hold basal insulin patient nothing by mouth Hypertension resume blood pressure medications Chronic kidney disease stable History prostate cancer Patient's full code dvt prophylaxis mechanical Anticipated length of stay more than 2 midnights
[2021-06-04] MEDS: SODIUM CHLORIDE 0.9% 1,000 ML IV SCH ×4 (01:49→23:06)
[2021-06-04 02:25] LABS: Basophils # (A) 0.1 k/uL (0-0.2); Basophils % (A) 0 %; Eosinophils # (A) 0.1 k/uL (0-0.7); Eosinophils % (A) 0 %; HCT 33.3 % (39.0-53.0); HGB 10.8 gm/dL (13.0-17.5); Lymphocytes # (A) 1.3 k/uL (1.0-4.8); Lymphocytes % (A) 11 %; MCH 30.9 pg (25.0-35.0); MCHC 32.4 g/dL (31.0-37.0); MCV 95.3 fL (80.0-100.0); Mean Platelet Volume 7.6; Monocytes # (A) 0.3 k/uL (0-1.0); Monocytes % (A) 2 %; Neutrophils # (A) 10.2 k/uL (1.3-7.7); Neutrophils % (A) 85 %; Platelet Count 188 k/uL (150-450); RDW 14.3 % (11.5-15.5)
[2021-06-04] MEDS: LEVOTHYROXINE 75 MCG TAB PO SCH (06:33)
[2021-06-04 07:01] LABS: Glucose,Whole Blood 394 mg/dL (75-99)
[2021-06-04] MEDS: INSULIN ASPART (NovoLOG) 100 UNIT/ML VIAL SQ SCH ×4 (07:07→21:07)
[2021-06-04] MEDS: TAMSULOSIN 0.4 MG CAP.ER.24H PO SCH (08:40)
[2021-06-04] MEDS: PANTOPRAZOLE 40 MG/10 ML VIAL IV SCH (08:43)
[2021-06-04] MEDS: lisinopriL 10 MG TAB PO SCH (08:44)
[2021-06-04 09:04] LABS: Basophils # (A) 0.1 k/uL (0-0.2); Basophils % (A) 0 %; Eosinophils % (A) 0 %; Lymphocytes # (A) 1.5 k/uL (1.0-4.8); Lymphocytes % (A) 12 %; MCH 31.6 pg (25.0-35.0); MCHC 33.5 g/dL (31.0-37.0); MCV 94.4 fL (80.0-100.0); Mean Platelet Volume 7.7; Monocytes # (A) 0.4 k/uL (0-1.0); Monocytes % (A) 4 %; Neutrophils # (A) 10.5 k/uL (1.3-7.7); Neutrophils % (A) 83 %; Platelet Count 197 k/uL (150-450); RBC 3.49 m/uL (4.30-5.90); RDW 14.1 % (11.5-15.5); WBC 12.6 k/uL (3.8-10.6)
[2021-06-04 10:23] LABS: Calcium 8.7 mg/dL (8.4-10.2); Potassium 4.7 mmol/L (3.5-5.1)
[2021-06-04 12:59] LABS: Glucose,Whole Blood 261 mg/dL (75-99)
[2021-06-04 15:49] LABS: Basophils # (A) 0.1 k/uL (0-0.2); Basophils % (A) 0 %; Eosinophils # (A) 0.1 k/uL (0-0.7); Eosinophils % (A) 0 %; HCT 29.5 % (39.0-53.0); HGB 9.7 gm/dL (13.0-17.5); Lymphocytes # (A) 2.1 k/uL (1.0-4.8); Lymphocytes % (A) 16 %; MCH 31.3 pg (25.0-35.0); MCHC 32.9 g/dL (31.0-37.0); MCV 95.1 fL (80.0-100.0); Mean Platelet Volume 7.9; Monocytes # (A) 0.4 k/uL (0-1.0); Monocytes % (A) 3 %; Neutrophils # (A) 10.2 k/uL (1.3-7.7); Neutrophils % (A) 79 %; Platelet Count 202 k/uL (150-450); RDW 14.2 % (11.5-15.5)
--- NOTE | 2021-06-04 15:57 | P.GSCN ---
History of Present Illness Consult date: 06/04/21 Reason for Consult: Acute GI bleed, hematochezia and melena, acute symptomatic blood loss anemia without signs of iron deficiency. History of present illness: Patient is a 60-year-old gentleman who presented to [facility] emergency department with chief complaint of a single self-limited episode of significant hematochezia and melena. He's been subsequently been admitted for further workup. He does describe some antecedent dizziness and lightheadedness, that has improved a bit since admission. He denies associated abdominal pain, hasn't had previous similar issues in the past. His hemoglobin is 2 g below his story to baseline. He is now maintained on any manner of significant anticoagulation. He does take a daily low-dose aspirin. Denies routine nonsteroidal anti- inflammatories. He tells me he's never undergone EGD, has never been diagnosed with peptic ulcer disease or H. pylori, has never been diagnosed with inflam matory bowel disease. He underwent colonoscopy perhaps 3-5 years ago and recalls having been told there were some manner of colon polyps retrieved. Does not recall the diagnosis of diverticulosis or hemorrhoidal disease. He underwent robotic prostatectomy recently his past April 2021. He only required pain medications for a day or 2 after procedure, he hasn't been maintained on narcotics after discharge from the hospital. He denies any issues with diarrhea or constipation. Pelvis was obtained, images and official report were reviewed. The colon looks somewhat redundant I don't appreciate any concerning areas of thickening or areas suspicious for tumor. No diverticulosis apparent. He may have a small sliding hiatal hernia. No acute findings of concern described on the official report. He has a chronic elevation of the serum creatinine around 2, he tells me he underwent a left partial minute nephrectomy some years ago for renal cancer. Review of Systems - Constitutional Reports as per HPI, Reports fatigue, Reports malaise, Reports sweats - EENT Ears, nose, mouth and throat: Reports as per HPI - Cardiovascular Reports as per HPI - Respiratory Reports as per HPI - Gastrointestinal Reports as per HPI, Reports hematochezia, Reports melena - Genitourinary Reports as per HPI - Musculoskeletal Reports as per HPI - Integumentary Reports as per HPI - Neurological Reports as per HPI - Psychiatric Reports as per HPI - Endocrine Reports as per HPI - Hematologic/Lymphatic Reports as per HPI - Allergic/Immunologic Reports as per HPI Past Medical History Past Medical History: Cancer, Diabetes Mellitus, Hyperlipidemia, Hypertension, Renal Disease, Sleep Apnea/CPAP/BIPAP, Thyroid Disorder, Vascular Disorder Additional Past Medical History / Comment(s): IDDM type II, CKD stage III, R renal carcinoma/partial nephrectomy, recent prostate cancer/prostatectomy, [place]/Cpap is broken, gout, varicosities, hypothyroid. History of Any Multi-Drug Resistant Organisms: None Reported Past Surgical History: No Surgical Hx Reported, Prostate Surgery Additional Past Surgical History / Comment(s): 04/25/21 prostatectomy, prostate bx, R partial neprhectomy, bilateral inguinal hernia repairs, colonoscopy Past Anesthesia/Blood Transfusion Reactions: No Reported Reaction Smoking Status: Former smoker - Past Family History Father Family Medical History: Cancer Additional Family Medical History / Comment(s): Father from either pancre atic or liver cancer. Mother Family Medical History: Cancer Additional Family Medical History / Comment(s): MMother had lung cancer. She is 84 yrs old. Medications and Allergies Home Medications Medication Instructions Recorded Confirmed Type Allopurinol [Zyloprim] 100 mg PO BID 04/18/21 06/03/21 History Aspirin 81 mg PO DAILY 04/18/21 06/03/21 History Atorvastatin Calcium [Lipitor] 10 mg PO DAILY 04/18/21 06/03/21 History Cholecalciferol [Vitamin D3 (25 50 mcg PO DAILY 04/18/21 06/03/21 History Mcg = 1000 Iu)] Cyanocobalamin (Vitamin B-12) 5,000 mcg PO DAILY 04/18/21 06/03/21 History [Vitamin B12] Dulaglutide [Trulicity] 1.5 mg SQ TU 04/18/21 06/03/21 History Enalapril Maleate 5 mg PO DAILY 04/18/21 06/03/21 History Folic Acid-Vit B Complex-Vit C 1 mg PO DAILY 04/18/21 06/03/21 History [Nephrocaps] Levothyroxine Sodium [Synthroid] 75 mcg PO [id number] 04/18/21 06/03/21 History Magnesium 400 mg PO DAILY 04/18/21 06/03/21 History Tamsulosin [Flomax] 0.4 mg PO DAILY 04/18/21 06/03/21 History Furosemide [Lasix] 40 mg PO Q48H 06/03/21 06/03/21 History Insulin Detemir [Levemir Flextouch 30 units SQ HS 06/03/21 06/03/21 History Pen] Ketorolac [Toradol] 10 mg PO Q6H PRN 06/03/21 06/03/21 History calcitrioL [Calcitriol] 0.5 mcg PO HOWARD 06/03/21 06/03/21 History Allergies Allergy/AdvReac Type Severity Reaction Status Date / Time No Known Allergies Allergy Verified 06/03/21 22:45 Surgical - Exam Osteopathic Statement: *. No significant issues noted on an osteopathic structural exam other than those noted in the History and Physical/Consult. Vital Signs Temp Pulse Resp BP Pulse Ox 97.8 F 117 H 20 84/59 100 06/03/21 21:14 06/03/21 21:14 06/03/21 21:14 06/03/21 21:14 06/03/21 21:14 - General well developed, no distress - Eyes PERRL, normal ocular movement - ENT normal pinna - Neck no lymphadectomy - Respiratory normal expansion, normal respiratory effort, clear to auscultation - Cardiovascular Rhythm: regular Heart Sounds: normal: S1, S2 - Abdomen Abdomen: soft, non tender Results - Labs 06/04/21 08:50 06/04/21 09:49 Abnormal Lab Results - Last 24 Hours (Table) 06/03/21 06/03/21 06/03/21 Range/Units 22:16 22:16 22:16 WBC 16.7 H (3.8-10.6) k/uL RBC 4.03 L (4.30-5.90) m/uL Hgb 12.3 L (13.0-17.5) gm/dL Hct 38.0 L (39.0-53.0) % Neutrophils # 14.1 H (1.3-7.7) k/uL APTT 20.9 L (22.0-30.0) sec Sodium 131 L (137-145) mmol/L Potassium 5.4 H (3.5-5.1) mmol/L Chloride (98-107) mmol/L Carbon Dioxide (22-30) mmol/L BUN 59 H (9-20) mg/dL Creatinine 2.23 H (0.66-1.25) mg/dL Glucose 454 H (74-99) mg/dL POC Glucose (mg/dL) (75-99) mg/dL Alkaline Phosphatase 141 H (38-126) U/L Total Protein 5.4 L (6.3-8.2) g/dL Albumin 3.1 L (3.5-5.0) g/dL Lipase 360 H (23-300) U/L 06/04/21 06/04/21 06/04/21 Range/Units 01:39 06:59 08:50 WBC 12.0 H 12.6 H (3.8-10.6) k/uL RBC 3.50 L 3.49 L (4.30-5.90) m/uL Hgb 10.8 L 11.0 L (13.0-17.5) gm/dL Hct 33.3 L 33.0 L (39.0-53.0) % Neutrophils # 10.2 H 10.5 H (1.3-7.7) k/uL APTT (22.0-30.0) sec Sodium (137-145) mmol/L Potassium (3.5-5.1) mmol/L Chloride (98-107) mmol/L Carbon Dioxide (22-30) mmol/L BUN (9-20) mg/dL Creatinine (0.66-1.25) mg/dL Glucose (74-99) mg/dL POC Glucose (mg/dL) 394 H (75-99) mg/dL Alkaline Phosphatase (38-126) U/L Total Protein (6.3-8.2) g/dL Albumin (3.5-5.0) g/dL Lipase (23-300) U/L 06/04/21 06/04/21 Range/Units 09:49 12:57 WBC (3.8-10.6) k/uL RBC (4.30-5.90) m/uL Hgb (13.0-17.5) gm/dL Hct (39.0-53.0) % Neutrophils # (1.3-7.7) k/uL APTT (22.0-30.0) sec Sodium (137-145) mmol/L Potassium (3.5-5.1) mmol/L Chloride 109 H (98-107) mmol/L Carbon Dioxide 21 L (22-30) mmol/L BUN 61 H (9-20) mg/dL Creatinine 2.19 H (0.66-1.25) mg/dL Glucose 265 H (74-99) mg/dL POC Glucose (mg/dL) 261 H (75-99) mg/dL Alkaline Phosphatase (38-126) U/L Total Protein (6.3-8.2) g/dL Albumin (3.5-5.0) g/dL Lipase (23-300) U/L Diabetes panel 06/03/21 06/04/21 Range/Units 22:16 09:49 Sodium 131 L 137 (137-145) mmol/L Potassium 5.4 H 4.7 (3.5-5.1) mmol/L Chloride 98 109 H (98-107) mmol/L Carbon Dioxide 25 21 L (22-30) mmol/L BUN 59 H 61 H (9-20) mg/dL Creatinine 2.23 H 2.19 H (0.66-1.25) mg/dL Glucose 454 H 265 H (74-99) mg/dL Calcium 8.8 8.7 (8.4-10.2) mg/dL AST 18 (17-59) U/L ALT 21 (4-49) U/L Alkaline Phosphatase 141 H (38-126) U/L Total Protein 5.4 L (6.3-8.2) g/dL Albumin 3.1 L (3.5-5.0) g/dL Calcium panel 06/03/21 06/04/21 Range/Units 22:16 09:49 Calcium 8.8 8.7 (8.4-10.2) mg/dL Albumin 3.1 L (3.5-5.0) g/dL Pituitary panel 06/03/21 06/04/21 Range/Units 22:16 09:49 Sodium 131 L 137 (137-145) mmol/L Potassium 5.4 H 4.7 (3.5-5.1) mmol/L Chloride 98 109 H (98-107) mmol/L Carbon Dioxide 25 21 L (22-30) mmol/L BUN 59 H 61 H (9-20) mg/dL Creatinine 2.23 H 2.19 H (0.66-1.25) mg/dL Glucose 454 H 265 H (74-99) mg/dL Calcium 8.8 8.7 (8.4-10.2) mg/dL Adrenal panel 06/03/21 06/04/21 Range/Units 22:16 09:49 Sodium 131 L 137 (137-145) mmol/L Potassium 5.4 H 4.7 (3.5-5.1) mmol/L Chloride 98 109 H (98-107) mmol/L Carbon Dioxide 25 21 L (22-30) mmol/L BUN 59 H 61 H (9-20) mg/dL Creatinine 2.23 H 2.19 H (0.66-1.25) mg/dL Glucose 454 H 265 H (74-99) mg/dL Calcium 8.8 8.7 (8.4-10.2) mg/dL Total Bilirubin 0.4 (0.2-1.3) mg/dL AST 18 (17-59) U/L ALT 21 (4-49) U/L Alkaline Phosphatase 141 H (38-126) U/L Total Protein 5.4 L (6.3-8.2) g/dL Albumin 3.1 L (3.5-5.0) g/dL Assessment and Plan Assessment: 60-year-old gentleman with a single, apparently self-limited episode of GI bleeding including hematochezia and melena. Associated acute blood loss, symptomatic anemia, normocytic, normochromic. Indices show a normal RDW, normal MCV and normal MCH, no signs of chronic iron deficiency. Differential diagnosis at this point is quite broad and eating sources. Rule out complications of portal hypertension, erosive esophagitis, bleeding gastritis, peptic ulcer disease, AV malformation or angiodysplasia, bleeding diverticulosis, hemorrhoidal disease or interval small bowel bleeding source. Not maintained on significant to oral anticoagulants. Relatively recent prostatectomy, patient states he hasn't been treated with radiation. Rectal exam and the emergency department revealed both hematochezia and melena, Hemoccult-positive, no discrete hemorrhoidal disease described by the ER physician. Computed tomography scan of the abdomen and pelvis unimpressive. Status post partial nephrectomy with chronic, stable elevation of creatinine. Plan: Options for further workup and treatment were discussed with the patient. He like to move forward with diagnostic EGD and colonoscopy, possible biopsy, con trol of bleeding, band ligation of internal hemorrhoids if indicated to be performed tomorrow. Last time he had anything substantial to eat was yesterday, he has been nothing by mouth since admission the hospital. We'll start an inpatient bowel prep, maintenance IV overnight, nothing by mouth after midnight. Timing of procedure yet to be determined. He was advised that if his endoscopy reveals no sources of bleeding and/or if there is evidence of bleeding at the level of the ileocecal valve we may recommend capsule endoscopy for survey of intervening small bowel. He gave informed consent for the closure procedure after discussion of risks, benefits and alternatives to treatment. Time with Patient: Greater than 30
--- NOTE | 2021-06-04 16:09 | P.PN ---
Subjective Progress Note Date: 06/04/21 Principal diagnosis: Possible GI Bleed. No overnight events. Patient denies any new symptoms. Pending evaluation with our consulting team Case discussed with RN at bedside. Objective - Vital Signs Vital signs: Vital Signs Temp 98.4 F 06/04/21 10:13 Pulse 104 H 06/04/21 10:28 Resp 18 06/04/21 10:28 BP 126/79 06/04/21 10:13 Pulse Ox 97 06/04/21 10:13 Intake & Output 06/03/21 06/04/21 06/04/21 18:59 06:59 18:59 Weight 86.183 kg 86.183 kg - Exam Constitutional: No acute distress, conversant, pleasant Eyes: Anicteric sclerae, moist conjunctiva, Pupils equal round reactive to light ENMT: NC/AT Oropharynx clear, no erythema, or exudates Neck: Supple no masses, or JVD No carotid bruits No thyromegaly Lungs: Clear to auscultation Clear to percussion Normal respiratory effort, no accessory muscle use Cardiovascular: Heart regular in rate and rhythm, No murmurs, gallops, or rubs No peripheral edema Abdominal: Nontender, no guarding, rebound or rigidity Abdomen moving with respiration Normoactive bowel sounds No hepatomegaly, No splenomegaly No palpable mass No abdominal wall hernia noted Skin: Normal temperature, tone, texture, turgor No induration No subcutaneous nodules No rash, lesions No ulcers Extremities: No digital cyanosis No clubbing Pedal pulses intact and symmetrical Radial pulses intact and symmetrical No calf tenderness Psychiatric: Alert and oriented to person, place and time Appropriate affect fair judgement Neuro Muscles Strength 5/5 in all 4 extremities Sensation to light touch grossly present throughout Cranial nerves II-XII grossly intact No focal sensory deficits Lymphatics: no palpable cervical or supraclavicular , or inguinal lymph nodes - Labs CBC & Chem 7: 06/04/21 15:20 06/04/21 09:49 Labs: Abnormal Lab Results - Last 24 Hours (Table) 06/03/21 06/03/21 06/03/21 Range/Units 22:16 22:16 22:16 WBC 16.7 H (3.8-10.6) k/uL RBC 4.03 L (4.30-5.90) m/uL Hgb 12.3 L (13.0-17.5) gm/dL Hct 38.0 L (39.0-53.0) % Neutrophils # 14.1 H (1.3-7.7) k/uL APTT 20.9 L (22.0-30.0) sec Sodium 131 L (137-145) mmol/L Potassium 5.4 H (3.5-5.1) mmol/L Chloride (98-107) mmol/L Carbon Dioxide (22-30) mmol/L BUN 59 H (9-20) mg/dL Creatinine 2.23 H (0.66-1.25) mg/dL Glucose 454 H (74-99) mg/dL POC Glucose (mg/dL) (75-99) mg/dL Alkaline Phosphatase 141 H (38-126) U/L Total Protein 5.4 L (6.3-8.2) g/dL Albumin 3.1 L (3.5-5.0) g/dL Lipase 360 H (23-300) U/L 06/04/21 06/04/21 06/04/21 Range/Units 01:39 06:59 08:50 WBC 12.0 H 12.6 H (3.8-10.6) k/uL RBC 3.50 L 3.49 L (4.30-5.90) m/uL Hgb 10.8 L 11.0 L (13.0-17.5) gm/dL Hct 33.3 L 33.0 L (39.0-53.0) % Neutrophils # 10.2 H 10.5 H (1.3-7.7) k/uL APTT (22.0-30.0) sec Sodium (137-145) mmol/L Potassium (3.5-5.1) mmol/L Chloride (98-107) mmol/L Carbon Dioxide (22-30) mmol/L BUN (9-20) mg/dL Creatinine (0.66-1.25) mg/dL Glucose (74-99) mg/dL POC Glucose (mg/dL) 394 H (75-99) mg/dL Alkaline Phosphatase (38-126) U/L Total Protein (6.3-8.2) g/dL Albumin (3.5-5.0) g/dL Lipase (23-300) U/L 06/04/21 06/04/21 06/04/21 Range/Units 09:49 12:57 15:20 WBC 13.0 H (3.8-10.6) k/uL RBC 3.10 L (4.30-5.90) m/uL Hgb 9.7 L (13.0-17.5) gm/dL Hct 29.5 L (39.0-53.0) % Neutrophils # 10.2 H (1.3-7.7) k/uL APTT (22.0-30.0) sec Sodium (137-145) mmol/L Potassium (3.5-5.1) mmol/L Chloride 109 H (98-107) mmol/L Carbon Dioxide 21 L (22-30) mmol/L BUN 61 H (9-20) mg/dL Creatinine 2.19 H (0.66-1.25) mg/dL Glucose 265 H (74-99) mg/dL POC Glucose (mg/dL) 261 H (75-99) mg/dL Alkaline Phosphatase (38-126) U/L Total Protein (6.3-8.2) g/dL Albumin (3.5-5.0) g/dL Lipase (23-300) U/L Assessment and Plan Plan: Assessment: #1 acute some chronic anemia secondary to possible GI bleed #2 diabetes mellitus #3 essential hypertension #4 chronic kidney disease stage III #5 history of prostate cancer Plan: -Aspiration/fall precaution -Nothing by mouth for now until evaluated by wig sales consultant -Monitor hemoglobin and transfuse if hemoglobin drops less than 7 -Continue with Protonix -IV fluids gentle hydration -CT abdomen and pelvis reviewed DVT prophylaxis SCDs for now Disposition anticipate discharge in the next 24-48 hours pending EGD/colonoscopy is completed.
[2021-06-04] MEDS ORDERED: MAGNESIUM CITRATE 296 ML BOTTLE PO SCH (16:15)
[2021-06-04 16:58] LABS: Glucose,Whole Blood 151 mg/dL (75-99)
[2021-06-04] MEDS: MAGNESIUM CITRATE 296 ML BOTTLE PO SCH ×4 (18:05→23:06)
[2021-06-04] MEDS: INSULIN DETEMIR (LEVEMIR) 100 UNIT/ML SYR SQ SCH (20:49)
[2021-06-04 20:52] LABS: Glucose,Whole Blood 191 mg/dL (75-99)
[2021-06-04 22:23] LABS: Basophils # (A) 0.1 k/uL (0-0.2); Basophils % (A) 1 %; Eosinophils # (A) 0.2 k/uL (0-0.7); Eosinophils % (A) 1 %; HCT 29.8 % (39.0-53.0); HGB 9.9 gm/dL (13.0-17.5); Lymphocytes # (A) 2.5 k/uL (1.0-4.8); Lymphocytes % (A) 17 %; MCH 31.5 pg (25.0-35.0); MCHC 33.1 g/dL (31.0-37.0); MCV 95.2 fL (80.0-100.0); Mean Platelet Volume 8.3; Monocytes # (A) 0.5 k/uL (0-1.0); Monocytes % (A) 3 %; Neutrophils # (A) 11.4 k/uL (1.3-7.7); Neutrophils % (A) 77 %; Platelet Count 210 k/uL (150-450); RBC 3.14 m/uL (4.30-5.90); RDW 14.4 % (11.5-15.5); WBC 14.8 k/uL (3.8-10.6)
[2021-06-05] MEDS: LEVOTHYROXINE 75 MCG TAB PO SCH (06:02)
[2021-06-05 07:54] LABS: Glucose,Whole Blood 180 mg/dL (75-99)
[2021-06-05] MEDS: lisinopriL 10 MG TAB PO SCH (08:34)
[2021-06-05] MEDS: TAMSULOSIN 0.4 MG CAP.ER.24H PO SCH (08:35)
[2021-06-05] MEDS: INSULIN ASPART (NovoLOG) 100 UNIT/ML VIAL SQ SCH ×4 (08:36→21:32)
[2021-06-05] MEDS: PANTOPRAZOLE 40 MG/10 ML VIAL IV SCH ×2 (08:36→21:36)
[2021-06-05] MEDS: SODIUM CHLORIDE 0.9% 1,000 ML IV SCH ×2 (08:39→23:32)
[2021-06-05 10:17] LABS: Calcium 8.1 mg/dL (8.4-10.2); Potassium 4.1 mmol/L (3.5-5.1)
[2021-06-05 10:21] LABS: Basophils # (A) 0.1 k/uL (0-0.2); Basophils % (A) 1 %; Eosinophils # (A) 0.3 k/uL (0-0.7); Eosinophils % (A) 3 %; HCT 23.5 % (39.0-53.0); Lymphocytes # (A) 1.8 k/uL (1.0-4.8); Lymphocytes % (A) 22 %; MCH 31.1 pg (25.0-35.0); MCHC 32.4 g/dL (31.0-37.0); MCV 96.2 fL (80.0-100.0); Mean Platelet Volume 7.4; Monocytes # (A) 0.3 k/uL (0-1.0); Monocytes % (A) 3 %; Neutrophils # (A) 5.6 k/uL (1.3-7.7); Neutrophils % (A) 69 %; Platelet Count 173 k/uL (150-450); RBC 2.45 m/uL (4.30-5.90); WBC 8.1 k/uL (3.8-10.6)
[2021-06-05 10:34] LABS: HGB 7.6 gm/dL (13.0-17.5)
[2021-06-05 11:58] LABS: Glucose,Whole Blood 139 mg/dL (75-99)
[2021-06-05] MEDS ORDERED: LIDOCAINE 1% INJ 10MG/ML (20 ML MDV) ONE (13:43)
[2021-06-05] MEDS ORDERED: PROPOFOL 10 MG/ML 20 ML VIAL IV ONE (13:43)
[2021-06-05] MEDS ORDERED: IV FLUID CONTINUATION 1,000 ML IV ONE (13:44)
--- NOTE | 2021-06-05 15:15 | P.PCN ---
Date of Procedure: 06/05/21 Preoperative Diagnosis: GI bleeding, Hematochezia and melena, acute symptomatic blood loss anemia. Postoperative Diagnosis: LA grade a erosive esophagitis with nodularity at the GE junction equivocal for metaplasia, mild proximal duodenitis, no evidence of active peptic ulcer disea se, no esophageal or gastric varices. Extensive retained melanotic stool and poor prep without evidence of lower GI AV malformation, angiodysplasia, diverticulosis, grossly apparent colitis, colon polyps or hemorrhoidal disease. Procedure(s) Performed: Diagnostic EGD with cold forceps biopsy of GE junction, antrum with incisura, duodenum, and proximal duodenum. Diagnostic colonoscopy. Anesthesia: MAC Surgeon: Trino Angeles Estimated Blood Loss (ml): 5 Pathology: other (Cold forceps biopsy of duodenum, proximal duodenum, gastric antrum with in situ sure, and GE junction.) Condition: stable Disposition: floor Indications for Procedure: Patient's a 60-year-old gentleman admitted to [facility] with presenting complaints of both hematochezia and melena. He had a single apparently self-limited episode of dramatic GI bleeding at home and antecedent and subsequent feelings of dizziness, lightheadedness and fatigue. He had a presenting hemoglobin around 12, normal platelet count, normal INR. Hemoglobin is decreased to 7.6 on date of procedure. He's not maintained on oral anticoagulants. Doesn't describe significant nonsteroidal anti-inflammatory medication use. No previous EGD, he may have undergone colonoscopy within the past few years with out findings of concern. No known personal history of inflammatory bowel disease no seriously demonstrated history of peptic ulcer disease or H. pylori infection. He wishes to move forward diagnostic EGD and colonoscopy, possible interventions if indicated and gave informed consent for the same after discussion of risks, benefits and alternatives to treatment. Operative Findings: As above Description of Procedure: Patient was taken to the endoscopy suite and placed in left lateral decubitus position. Following menstruation of IV sedation gastroscope was advanced under visualization of the bite block to the second and third portions of the duodenum. Distal duodenum and ampulla had a normal appearance. There was some mild focal proximal duodenitis noted without apparent ulcer. No stigmata of recent or ongoing bleeding. Cold forceps biopsy was obtained along the second and third portions of the duodenum and focus cold forceps biopsy obtained of the proximal duodenum for comparison. Scope was withdrawn to the antrum which had an essentially normal appearance. Cold forceps biopsies obtained at antrum and incise sure to exclude H. pylori infection. Scope was retroflexed visualizing gastric mucosa from an antegrade and retrograde perspective. There were no signs of GI bleeding seen. No ulcer disease, no grossly apparent gastritis, gastric varices and no hiatal hernia. ge junction was inspected with narrow band imaging revealing an la grade a erosive esophagitis and some mild nodularity and irregularity of the ge junction equivocal inflammatory change versus metaplasia. Cold forceps biopsy at the junction was obtained for clarifi cation. stomach was decompressed and the remaining esophagus and larynx had a normal appearance as the scope was fully withdrawn from the patient. he was then repositioned for colonoscopy. Digital rectal exam was performed revealing autumn melena without signs of hemorrhoidal disease or fissure. Colonoscope was advanced under visualization to the cecum demonstrating appendiceal orifice and ileocecal valve. Multiple attempts at intubation of terminal ileum were made but unsuccessful. There were no signs of ongoing bleeding at the ileocecal valve no grossly apparent signs of inflammation. Bowel prep quality was poor with an abundance of retained melanotic stool. With diligent irrigation and aspiration bowel prep quality was more failure. Colonoscope was gradually withdrawn inspecting mucosal surfaces as able. I saw no grossly apparent signs of colitis, no ulceration, no diverticulosis, no AV malformation or angiodysplasia, no colon polyps or concerning masses or lesions, and no signs of ongoing active leading. Scope was retroflexed in the rectum demonstrating no significant internal hemorrhoidal disease. Colon was decompressed and the scope removed from the patient. He was transferred to the postanesthesia care unit in stable condition. With the patient's hemoglobin just above 7 at would be worthwhile considering a transfusion if he is still having symptoms of blood loss. In the absence of symptoms a transfusion threshold of below 7 is recommended by current care guidelines. I didn't see any pathology on endoscopy to explain the degree of blood loss encountered. It possibly bleeding could've originated from a duodenal ulcer that has now made progress towards healing, he could've had brisk bleeding from an erosive esophagitis but I do suspect a more interval small bowel bleeding source. If he has persistent signs of bleeding or inappropriate response to transfusion would recommend CT angiogram or a tagged RBC scan to potentially get a general idea of location of bleeding. The be stable overnight I did suggest to palpation assessment by GI for capsule endoscopy.
--- NOTE | 2021-06-05 16:58 | P.PN ---
Subjective Progress Note Date: 06/05/21 Principal diagnosis: Possible GI Bleed. Patient was examined at bedside today accompanying of any worsening symptomatology. Still continues to complain of blood in his stool. Case discussed with RN present at bedside. Pending EGD/colonoscopy by GI team today. Objective - Vital Signs Vital signs: Vital Signs Temp 97.6 F 06/05/21 08:11 Pulse 86 06/05/21 15:50 Resp 18 06/05/21 08:11 BP 108/58 06/05/21 15:50 Pulse Ox 97 06/05/21 15:50 Intake & Output 06/04/21 06/05/21 06/05/21 18:59 06:59 18:59 Intake Total 1000 175 Balance 1000 175 Weight 86.183 kg Intake: IV 1000 175 Sodium Chloride 0.9% 1, 1000 000 ml @ 100 mls/hr IV . Q10H [facility] Rx#:[id number] Other: Voiding Method Toilet # Bowel Movements 8 - Exam Constitutional: No acute distress, conversant, pleasant Eyes: Anicteric sclerae, moist conjunctiva, Pupils equal round reactive to light ENMT: NC/AT Oropharynx clear, no erythema, or exudates Neck: Supple no masses, or JVD No carotid bruits No thyromegaly Lungs: Clear to auscultation Clear to percussion Normal respiratory effort, no accessory muscle use Cardiovascular: Heart regular in rate and rhythm, No murmurs, gallops, or rubs No peripheral edema Abdominal: Nontender, no guarding, rebound or rigidity Abdomen moving with respiration Normoactive bowel sounds No hepatomegaly, No splenomegaly No palpable mass No abdominal wall hernia noted Skin: Normal temperature, tone, texture, turgor No induration No subcutaneous nodules No rash, lesions No ulcers Extremities: No digital cyanosis No clubbing Pedal pulses intact and symmetrical Radial pulses intact and symmetrical No calf tenderness Psychiatric: Alert and oriented to person, place and time Appropriate affect fair judgement Neuro Muscles Strength 5/5 in all 4 extremities Sensation to light touch grossly present throughout Cranial nerves II-XII grossly intact No focal sensory deficits Lymphatics: no palpable cervical or supraclavicular , or inguinal lymph nodes - Labs CBC & Chem 7: 06/05/21 09:39 06/05/21 09:39 Labs: Abnormal Lab Results - Last 24 Hours (Table) 06/04/21 06/04/21 06/04/21 Range/Units 16:56 20:50 22:08 WBC 14.8 H (3.8-10.6) k/uL RBC 3.14 L (4.30-5.90) m/uL Hgb 9.9 L (13.0-17.5) gm/dL Hct 29.8 L (39.0-53.0) % Neutrophils # 11.4 H (1.3-7.7) k/uL Chloride (98-107) mmol/L BUN (9-20) mg/dL Creatinine (0.66-1.25) mg/dL Glucose (74-99) mg/dL POC Glucose (mg/dL) 151 H 191 H (75-99) mg/dL Calcium (8.4-10.2) mg/dL 06/05/21 06/05/21 06/05/21 Range/Units 07:53 09:39 09:39 WBC (3.8-10.6) k/uL RBC 2.45 L (4.30-5.90) m/uL Hgb 7.6 L D (13.0-17.5) gm/dL Hct 23.5 L (39.0-53.0) % Neutrophils # (1.3-7.7) k/uL Chloride 110 H (98-107) mmol/L BUN 56 H (9-20) mg/dL Creatinine 1.93 H (0.66-1.25) mg/dL Glucose 169 H (74-99) mg/dL POC Glucose (mg/dL) 180 H (75-99) mg/dL Calcium 8.1 L (8.4-10.2) mg/dL 06/05/21 Range/Units 11:56 WBC (3.8-10.6) k/uL RBC (4.30-5.90) m/uL Hgb (13.0-17.5) gm/dL Hct (39.0-53.0) % Neutrophils # (1.3-7.7) k/uL Chloride (98-107) mmol/L BUN (9-20) mg/dL Creatinine (0.66-1.25) mg/dL Glucose (74-99) mg/dL POC Glucose (mg/dL) 139 H (75-99) mg/dL Calcium (8.4-10.2) mg/dL Assessment and Plan Plan: Assessment: #1 acute some chronic anemia secondary to possible GI bleed #2 diabetes mellitus #3 essential hypertension #4 chronic kidney disease stage III #5 history of prostate cancer Plan: -Aspiration/fall precaution -Nothing by mouth for now until evaluated by workforce consultant -Monitor hemoglobin and transfuse if hemoglobin drops less than 7 -Continue with Protonix -IV fluids gentle hydration -CT abdomen and pelvis reviewed DVT prophylaxis SCDs for now Disposition anticipate discharge in the next 24-48 hours pending EGD/colonoscopy is completed.
[2021-06-05 17:33] LABS: Glucose,Whole Blood 137 mg/dL (75-99)
[2021-06-05 18:14] LABS: HGB 7.2 gm/dL (13.0-17.5); Hypochromasia Slight; MCH 31.7 pg (25.0-35.0); MCHC 32.7 g/dL (31.0-37.0); MCV 96.9 fL (80.0-100.0); Mean Platelet Volume 7.3; Platelet Count 163 k/uL (150-450); RBC 2.27 m/uL (4.30-5.90); WBC 6.7 k/uL (3.8-10.6)
[2021-06-05 21:23] LABS: Glucose,Whole Blood 98 mg/dL (75-99)
[2021-06-05] MEDS: INSULIN DETEMIR (LEVEMIR) 100 UNIT/ML SYR SQ SCH (21:36)
[2021-06-06 03:48] LABS: Basophils % (A) 1 %; Eosinophils # (A) 0.2 k/uL (0-0.7); Eosinophils % (A) 3 %; HCT 21.5 % (39.0-53.0); HCT 21.9 % (39.0-53.0); HGB 7.1 gm/dL (13.0-17.5); Lymphocytes # (A) 1.7 k/uL (1.0-4.8); Lymphocytes % (A) 26 %; MCH 30.8 pg (25.0-35.0); MCH 30.9 pg (25.0-35.0); MCHC 32.6 g/dL (31.0-37.0); MCV 94.4 fL (80.0-100.0); MCV 94.6 fL (80.0-100.0); Mean Platelet Volume 8.9; Monocytes # (A) 0.2 k/uL (0-1.0); Monocytes % (A) 3 %; Neutrophils # (A) 4.4 k/uL (1.3-7.7); Neutrophils % (A) 67 %; Platelet Count 148 k/uL (150-450); Platelet Count 156 k/uL (150-450); RBC 2.28 m/uL (4.30-5.90); RBC 2.31 m/uL (4.30-5.90); RDW 14.7 % (11.5-15.5); WBC 6.7 k/uL (3.8-10.6); WBC 6.9 k/uL (3.8-10.6)
[2021-06-06 04:05] LABS: Calcium 7.9 mg/dL (8.4-10.2)
[2021-06-06] MEDS: LEVOTHYROXINE 75 MCG TAB PO SCH (06:18)
[2021-06-06 07:35] LABS: Glucose,Whole Blood 128 mg/dL (75-99)
[2021-06-06] MEDS: INSULIN ASPART (NovoLOG) 100 UNIT/ML VIAL SQ SCH ×4 (07:54→20:27)
[2021-06-06] MEDS: TAMSULOSIN 0.4 MG CAP.ER.24H PO SCH (08:59)
[2021-06-06] MEDS: PANTOPRAZOLE 40 MG/10 ML VIAL IV SCH ×2 (08:59→21:35)
[2021-06-06] MEDS: lisinopriL 10 MG TAB PO SCH (08:59)
[2021-06-06 09:59] LABS: HCT 20.1 % (39.0-53.0); MCH 31.8 pg (25.0-35.0); MCHC 33.3 g/dL (31.0-37.0); MCV 95.4 fL (80.0-100.0); Mean Platelet Volume 8.6; Platelet Count 153 k/uL (150-450); RDW 14.9 % (11.5-15.5); WBC 6.4 k/uL (3.8-10.6)
[2021-06-06 10:23] LABS: HGB 6.7 gm/dL (13.0-17.5)
--- NOTE | 2021-06-06 11:24 | P.PN ---
Progress Note - Text Progress Note Date: 06/06/21 Patient seen and examined at bedside, feeling a bit more lethargic today. Denies pain. Had been tolerating clear liquids overnight. No additional bowel movement since endoscopy yesterday. Denies fever or chills no reported chest pain or shortness of breath. Repeat CBC this morning shows hemoglobin slightly below 7. CBC from this morning shows white blood cell count of 6.4, hemoglobin 6.7, dwindling down from 7.2 overnight, platelet count of 153. Metabolic panel shows serum sodium 136, potassium 4.0, CO2 of 24, creatinine of 1.92, stable, glucose of 119. Temperature 99.5F, heart rate 101, blood pressure 121/65, respiratory rate 16 and 97% O2 saturation on room air. Cardiovascular: Regular without appreciable murmur. Respiratory: Lungs are clear to auscultation bilaterally without a visual crackles wheezes rhonchi. Abdominal exam: Abdomen is soft, nontender to palpation, no guarding rebound or distention. Extremities: The perfusion warm and well-perfused. Impression: 1) 60-year-old gentleman with acute symptomatic blood loss anemia due to acute upper GI bleed. Status post diagnostic EGD and colonoscopy 06/05/2021 revealing a LA grade A erosive esophagitis, some nodular irregularity of the GE junction, mild proximal duodenitis without signs of recent or ongoing bleeding, no active ulcer disease appreciated, no evidence of complications of portal hypertension, AV malformation or angiodysplasia. Colonoscopy revealed only retained melanotic stool, no diverticulosis, no signs of ongoing bleeding seen at the level of the ileocecal valve. I suspect a small bowel bleeding source as the pathology seen on EGD doesn't really correlate with the degree of blood loss we've encountered. No history of oral anticoagulation, INR normal range. Biopsies obtained for infectious etiologies and metaplasia of the GE junction. 2) History of renal cancer status post partial nephrectomy, creatinine stable at around 2. Plan: 1) Agree with blood transfusion today for hemoglobin less than 7 in the setting of mild tachycardia. Recommend CBC one-hour post transfusion and every 8 hours thereafter with similar transfusion threshold. If patient fails to Mt. appropriate response to transfusion I'd suggest CT angiogram of abdomen and pelvis or RBC scan to take another stab at localizing the source of bleeding. If he has a precipitous drop of hemoglobin he may need a formal angiogram.
[2021-06-06 12:09] LABS: Glucose,Whole Blood 141 mg/dL (75-99)
[2021-06-06] MEDS: SODIUM CHLORIDE 0.9% 1,000 ML IV SCH (12:18)
--- NOTE | 2021-06-06 15:16 | NM ---
EXAMINATION TYPE: NM GI bleeding DATE OF EXAM: 06/06/2021 HISTORY: Acute blood loss. COMPARISON: CT abdomen and pelvis 3 days ago Following administration of 3 ml PYP 23.3 mCi Tc 99m Sodium Pertechnete. Immediate images post inject ion. FINDINGS: Normal tracer activity is seen in the blood pool of the abdominal aorta, common iliac arteries, femor al arteries, liver, and spleen on all of the interval images. Later images show accumulation of trace r in the midline of the mid to lower abdomen that becomes more prominent and changes in position antwon g course of a bowel loop presumed small bowel loop over time at this level extending to the left of m idline. IMPRESSION: Active acute GI hemorrhage localized to a small bowel loop in the mid to lower abdomen ju st left of midline. A Sac level critical message alert has been initiated for Amber Valerio MD via the [employer] Critical Results System on 06/06/2021 3:13 PM. This message alert has been sent to Amber carter MD via the preferences provided by the clinician for the receipt of Radiology Critical Findings. Message ID [id number].
--- NOTE | 2021-06-06 16:23 | P.PN ---
Subjective Progress Note Date: 06/06/21 History of present illness for H&P 60 year old male with HTN, DM , CKD, prostate cancer patient comes in with sudden episode of fresh bright blood per rectum, without abd pain, patient became dizzy and lightheaded with some mild stomach growls . he never experienced anything like this before, he denies being on any blood thinners, and denies taking any NSAIDs except for Aspirin. denies recent travel, denies any unsanitary food patient had prostate surgery about a month ago , and blood work today showed a drop in hgb of 2 gms patient currently laying down comfortably , denies any chest pain , trouble breathing, dizziness, or abd pain , he denies any alcohol abuse, or history of stomach ulcers Patient reports multiple colonoscopies in the past, nothing other than benign polyps CT of the abd showed no acute pathology except for gas filled bowels Interval history: Patient wasn't examined at bedside. He denies any chest pain or shortness of breath. Patient denied any further episodes of rectal bleed. Patient will continue Hemoglobin today is 6.7 from 7.2 yesterday. Patient denied any lightheadedness or dizziness. Patient's vitals are stable except mild sinus tachycardia this morning. 2 units of packed obesity ordered packed red blood cell scan ordered. Objective - Vital Signs Vital signs: Vital Signs Temp 98 F 06/06/21 13:48 Pulse 90 06/06/21 13:48 Resp 18 06/06/21 13:48 BP 134/80 06/06/21 13:48 Pulse Ox 95 06/06/21 12:07 Intake & Output 06/05/21 06/06/21 06/06/21 18:59 06:59 18:59 Intake Total 1075 100 280 Balance 1075 100 280 Intake: IV 1075 Sodium Chloride 0.9% 1, 900 000 ml @ 100 mls/hr IV . Q10H [facility] Rx#:[id number] Oral 100 Blood Product 280 Rc Pheresis As-3 Unit 280 [id number] Other: Voiding Method Toilet Toilet # Voids 1 - Exam General: non toxic, no distress, appears at stated age Derm: warm, dry Head: atraumatic, normocephalic, symmetric Eyes: EOMI, no lid lag, anicteric sclera Mouth: no lip lesion, mucus membranes moist Cardiovascular: S1S2 reg, no murmur, positive posterior tibial pulse bilateral, Lungs: CTA bilateral, no rhonchi, no rales , no accessory muscle use Abdominal: soft, nontender to palpation, no guarding, no appreciable organomegaly Ext: no gross muscle atrophy, no edema, no contractures Neuro: CN II-XI grossly intact, no focal neuro deficits Psych: Alert, oriented, appropriate affect - Labs CBC & Chem 7: 06/06/21 09:34 06/06/21 03:35 Labs: Abnormal Lab Results - Last 24 Hours (Table) 06/03/21 06/05/21 06/05/21 Range/Units 22:16 17:30 18:04 RBC 2.27 L (4.30-5.90) m/uL Hgb 7.2 L (13.0-17.5) gm/dL Hct 22.0 L (39.0-53.0) % Plt Count (150-450) k/uL Sodium (137-145) mmol/L Chloride (98-107) mmol/L BUN (9-20) mg/dL Creatinine (0.66-1.25) mg/dL Glucose (74-99) mg/dL POC Glucose (mg/dL) 137 H (75-99) mg/dL Calcium (8.4-10.2) mg/dL Crossmatch See Detail 06/06/21 06/06/21 06/06/21 Range/Units 03:35 03:35 03:35 RBC 2.28 L 2.31 L (4.30-5.90) m/uL Hgb 7.0 L 7.1 L (13.0-17.5) gm/dL Hct 21.5 L 21.9 L (39.0-53.0) % Plt Count 148 L (150-450) k/uL Sodium 136 L (137-145) mmol/L Chloride 110 H (98-107) mmol/L BUN 40 H (9-20) mg/dL Creatinine 1.92 H (0.66-1.25) mg/dL Glucose 119 H (74-99) mg/dL POC Glucose (mg/dL) (75-99) mg/dL Calcium 7.9 L (8.4-10.2) mg/dL Crossmatch 06/06/21 06/06/21 06/06/21 Range/Units 07:34 09:34 12:07 RBC 2.10 L (4.30-5.90) m/uL Hgb 6.7 L* (13.0-17.5) gm/dL Hct 20.1 L (39.0-53.0) % Plt Count (150-450) k/uL Sodium (137-145) mmol/L Chloride (98-107) mmol/L BUN (9-20) mg/dL Creatinine (0.66-1.25) mg/dL Glucose (74-99) mg/dL POC Glucose (mg/dL) 128 H 141 H (75-99) mg/dL Calcium (8.4-10.2) mg/dL Crossmatch Assessment and Plan Plan: Assessment and plan: #Severe acute blood loss anemia secondary to GI bleed -Status post angiogram colonoscopy June 05 Procedure surgery : Distal duodenum and ampulla had a normal appearance. There was some mild focal proximal duodenitis noted without apparent ulcer. No stigmata of recent or ongoing bleeding. Cold forceps biopsy was obtained along the second and third portions of the duodenum and focus cold forceps biopsy obtained of the proximal duodenum for comparison. Scope was withdrawn to the antrum which had an essentially normal appearance. Cold forceps biopsies obtained at antrum and incise sure to exclude H. pylori infection. Scope was retroflexed visualizing gastric mucosa from an antegrade and retrograde perspective. There were no signs of GI bleeding seen. No ulcer disease, no grossly apparent gastritis, gastric varices and no hiatal hernia. ge junction was inspected with narrow band imaging revealing an la grade a erosive esophagitis and some mild nodularity and irregularity of the ge junction equivocal inflammatory change versus metaplasia. Cold forceps biopsy at the junction was obtained for clarification. stomach was decompressed and the remaining esophagus and larynx had a normal appearance as the scope was fully withdrawn from the patient. he was then repositioned for colonoscopy. -Stat tagged RBC scan: Showed active acute GI hemorrhage localized to a small bowel loop in the mid to lower abdomen just left of midline -I spoke to interventional radiology department here at [facility] and interventional radiologist recommended transfer to tertiary care facility since the procedure is not available at [facility]. -In the meantime the patient was getting his second unit of packed RBCs on another 2 units of packed of this is ordered for transfusion total of 4 units -I spoke to general surgeon Dr. Angeles recommended the patient to be transferred to tertiary care facility -In the meantime patient will be transferred to ICU patient. I spoke to the mold making plastics sheets supervisor Dr. Lovell and patient has been accepted to ICU. -Resume PPIs, aspirin on hold secondary to GI bleed -I spoke to yves Orozco , [facility]--pending accepting physician. #Chronic kidney stage III-IV -The patient has been attending a baseline -Avoid nephrotoxic agents -Lisinopril hold #Hypothyroidism -Resume levothyroxine #Insulin-dependent type 2 diabetes mellitus -Hold Levemir since patient is nothing by mouth #Hypertension -Hold lisinopril for now #History of renal cell carcinoma status post partial nephrectomy many years ago #History of prostate cancer Condition is critical. Patient will be transferred to ICU
[2021-06-06 16:25] LABS: Basophils % (A) 1 %; Eosinophils # (A) 0.2 k/uL (0-0.7); Eosinophils % (A) 3 %; HCT 23.1 % (39.0-53.0); HGB 7.6 gm/dL (13.0-17.5); Lymphocytes # (A) 1.4 k/uL (1.0-4.8); Lymphocytes % (A) 24 %; MCH 31.1 pg (25.0-35.0); MCHC 32.8 g/dL (31.0-37.0); MCV 94.9 fL (80.0-100.0); Mean Platelet Volume 8.6; Monocytes # (A) 0.2 k/uL (0-1.0); Monocytes % (A) 4 %; Neutrophils # (A) 3.9 k/uL (1.3-7.7); Neutrophils % (A) 68 %; Platelet Count 147 k/uL (150-450); RBC 2.43 m/uL (4.30-5.90); RDW 14.8 % (11.5-15.5); WBC 5.8 k/uL (3.8-10.6)
[2021-06-06 16:43] LABS: Glucose,Whole Blood 127 mg/dL (75-99)
[2021-06-06 20:20] LABS: Glucose,Whole Blood 128 mg/dL (75-99)
[2021-06-06] MEDS ORDERED: CALCIUM GLUCONATE 1 GM in SODIUM CHLORIDE 0.9% 100 ML IVPB ONE (21:18)
[2021-06-07 00:04] LABS: Basophils # (A) 0.1 k/uL (0-0.2); Basophils % (A) 1 %; Eosinophils # (A) 0.2 k/uL (0-0.7); Eosinophils % (A) 3 %; HCT 27.3 % (39.0-53.0); Lymphocytes # (A) 1.5 k/uL (1.0-4.8); Lymphocytes % (A) 27 %; MCH 30.3 pg (25.0-35.0); MCHC 33.3 g/dL (31.0-37.0); MCV 90.8 fL (80.0-100.0); Mean Platelet Volume 7.5; Monocytes # (A) 0.3 k/uL (0-1.0); Monocytes % (A) 4 %; Neutrophils # (A) 3.7 k/uL (1.3-7.7); Neutrophils % (A) 64 %; Platelet Count 140 k/uL (150-450); WBC 5.7 k/uL (3.8-10.6)
[2021-06-07 00:07] LABS: HGB 9.1 gm/dL (13.0-17.5)
[2021-06-07] MEDS: SODIUM CHLORIDE 0.9% 1,000 ML IV SCH ×4 (01:38→23:03)
[2021-06-07] MEDS: INSULIN ASPART (NovoLOG) 100 UNIT/ML VIAL SQ SCH ×4 (06:39→20:56)
[2021-06-07 06:41] LABS: Glucose,Whole Blood 128 mg/dL (75-99)
[2021-06-07] MEDS: LEVOTHYROXINE 75 MCG TAB PO SCH (06:42)
[2021-06-07 07:16] LABS: HCT 31.4 % (39.0-53.0); HGB 10.6 gm/dL (13.0-17.5); MCH 30.7 pg (25.0-35.0); MCHC 33.7 g/dL (31.0-37.0); MCV 91.1 fL (80.0-100.0); Mean Platelet Volume 8.3; Platelet Count 138 k/uL (150-450); RBC 3.44 m/uL (4.30-5.90); RDW 15.4 % (11.5-15.5)
[2021-06-07 07:26] LABS: Albumin 2.7 g/dL (3.5-5.0); Calcium 8.5 mg/dL (8.4-10.2); Potassium 3.8 mmol/L (3.5-5.1); Total Protein 5.1 g/dL (6.3-8.2)
[2021-06-07] MEDS: PANTOPRAZOLE 40 MG/10 ML VIAL IV SCH ×2 (09:39→21:26)
--- NOTE | 2021-06-07 11:22 | P.PN ---
Progress Note - Text Progress Note Date: 06/07/21 Patient seen and examined at bedside, feeling much better post transfusion Denies pain. Presently nothing by mouth. No additional bowel movement since endoscopy, positive flatus.. Denies fever or chills no reported chest pain or shortness of breath. Appropriate response to 4 units PRBC. Awaiting bed availability for transfer to [facility]. RBC scan 06/06/20 shows active hemorrhage of small bowel loop, left lower quadrant. CBC from this morning shows white blood cell count of 6.0, hemoglobin 10.6, platelet count of 138. Metabolic panel shows serum sodium 140, potassium 3.8, CO2 of 25, creatinine of 1.84, glucose of 120. Temperature 98.2F, heart rate 81, blood pressure 134/72, respiratory rate 16 and 96% O2 saturation on room air. Cardiovascular: Regular without appreciable murmur. Respiratory: Lungs are clear to auscultation bilaterally without a visual crackles wheezes rhonchi. Abdominal exam: Abdomen is soft, nontender to palpation, no guarding rebound or distention. Extremities: The perfusion warm and well-perfused. Impression: 1) 60-year-old gentleman with acute symptomatic blood loss anemia due to acute upper GI bleed. RBC scan confirms source as small bowel in the area of left lower quadrant. Status post diagnostic EGD and colonoscopy 06/05/2021 revealing a LA grade A erosive esophagitis, some nodular irregularity of the GE junction, mild proximal duodenitis without signs of recent or ongoing bleeding, no active ulcer disease appreciated, no evidence of complications of portal hypertension, AV malformation or angiodysplasia. Colonoscopy revealed only retained melanotic stool, no diverticulosis, no signs of ongoing bleeding seen at the level of the ileocecal valve. No history of oral anticoagulation, INR normal range. Biopsies obtained for infectious etiologies and metaplasia of the GE junction. 2) History of renal cancer status post partial nephrectomy, creatinine stable at around 2. Plan: 1) Awaiting transfer for further IR evaluation. Angioembolization reportedly not available locally. Patient does appear to be stabilizing post 4 units [place] BCs. Continue with serial CBC, transfusion threshold of 7 or for symptomatic blood loss.
[2021-06-07 11:56] LABS: Basophils % (A) 1 %; Eosinophils # (A) 0.2 k/uL (0-0.7); Eosinophils % (A) 3 %; HCT 30.6 % (39.0-53.0); HGB 10.2 gm/dL (13.0-17.5); Lymphocytes % (A) 19 %; MCH 30.7 pg (25.0-35.0); MCHC 33.4 g/dL (31.0-37.0); MCV 91.8 fL (80.0-100.0); Mean Platelet Volume 7.6; Monocytes # (A) 0.3 k/uL (0-1.0); Monocytes % (A) 5 %; Neutrophils # (A) 3.9 k/uL (1.3-7.7); Neutrophils % (A) 72 %; Platelet Count 128 k/uL (150-450); RBC 3.34 m/uL (4.30-5.90); RDW 15.3 % (11.5-15.5); WBC 5.4 k/uL (3.8-10.6)
[2021-06-07 12:03] LABS: Glucose,Whole Blood 133 mg/dL (75-99)
--- NOTE | 2021-06-07 14:12 | P.PN ---
Subjective Progress Note Date: 06/07/21 History of present illness for H&P 60 year old male with HTN, DM , CKD, prostate cancer patient comes in with sudden episode of fresh bright blood per rectum, without abd pain, patient became dizzy and lightheaded with some mild stomach growls . he never experienced anything like this before, he denies being on any blood thinners, and denies taking any NSAIDs except for Aspirin. denies recent travel, denies any unsanitary food patient had prostate surgery about a month ago , and blood work today showed a drop in hgb of 2 gms patient currently laying down comfortably , denies any chest pain , trouble breathing, dizziness, or abd pain , he denies any alcohol abuse, or history of stomach ulcers Patient reports multiple colonoscopies in the past, nothing other than benign polyps CT of the abd showed no acute pathology except for gas filled bowels Interval history: Patient was seen and examined at bedside. He denies any chest pain or shortness of breath. Patient denied any further episodes of rectal bleed. Pending transfer to [facility] for angiogram and embolization by IR. Patient was transfused a total 4 units of packed RBCs. Objective - Vital Signs Vital signs: Vital Signs Temp 98.2 F 06/07/21 08:00 Pulse 79 06/07/21 08:00 Resp 18 06/07/21 12:00 BP 125/71 06/07/21 12:00 Pulse Ox 96 06/07/21 12:00 Intake & Output 06/06/21 06/07/21 06/07/21 18:59 06:59 18:59 Intake Total 920 630 Output Total 1000 Balance 920 -370 Intake: IV 10 Invasive Line 1 10 Oral 360 Blood Product 560 620 Rc As-1 Unit 0 310 [id number] Rc As-1 Unit 310 [id number] Rc Pheresis As-3 Unit 280 [id number] Rc Pheresis As-3 Unit 280 [id number] Output: Urine 1000 Other: Voiding Method Urinal # Voids 2 1 # Bowel Movements 1 - Exam General: non toxic, no distress, appears at stated age Derm: warm, dry Head: atraumatic, normocephalic, symmetric Eyes: EOMI, no lid lag, anicteric sclera Mouth: no lip lesion, mucus membranes moist Cardiovascular: S1S2 reg, no murmur, positive posterior tibial pulse bilateral, Lungs: CTA bilateral, no rhonchi, no rales , no accessory muscle use Abdominal: soft, nontender to palpation, no guarding, no appreciable organomegaly Ext: no gross muscle atrophy, no edema, no contractures Neuro: CN II-XI grossly intact, no focal neuro deficits Psych: Alert, oriented, appropriate affect - Labs CBC & Chem 7: 06/07/21 11:32 06/07/21 06:59 Labs: Abnormal Lab Results - Last 24 Hours (Table) 06/03/21 06/06/21 06/06/21 Range/Units 22:16 16:06 16:40 RBC 2.43 L (4.30-5.90) m/uL Hgb 7.6 L (13.0-17.5) gm/dL Hct 23.1 L (39.0-53.0) % Plt Count 147 L (150-450) k/uL Chloride (98-107) mmol/L BUN (9-20) mg/dL Creatinine (0.66-1.25) mg/dL Glucose (74-99) mg/dL POC Glucose (mg/dL) 127 H (75-99) mg/dL Total Protein (6.3-8.2) g/dL Albumin (3.5-5.0) g/dL Crossmatch See Detail 06/06/21 06/06/21 06/06/21 Range/Units 20:18 23:33 23:33 RBC 3.00 L (4.30-5.90) m/uL Hgb 9.1 L D (13.0-17.5) gm/dL Hct 27.3 L (39.0-53.0) % Plt Count 140 L (150-450) k/uL Chloride (98-107) mmol/L BUN (9-20) mg/dL Creatinine (0.66-1.25) mg/dL Glucose (74-99) mg/dL POC Glucose (mg/dL) 128 H (75-99) mg/dL Total Protein (6.3-8.2) g/dL Albumin (3.5-5.0) g/dL Crossmatch See Detail 06/07/21 06/07/21 06/07/21 Range/Units 06:38 06:59 06:59 RBC 3.44 L (4.30-5.90) m/uL Hgb 10.6 L (13.0-17.5) gm/dL Hct 31.4 L (39.0-53.0) % Plt Count 138 L (150-450) k/uL Chloride 112 H (98-107) mmol/L BUN 25 H (9-20) mg/dL Creatinine 1.84 H (0.66-1.25) mg/dL Glucose 120 H (74-99) mg/dL POC Glucose (mg/dL) 128 H (75-99) mg/dL Total Protein 5.1 L (6.3-8.2) g/dL Albumin 2.7 L (3.5-5.0) g/dL Crossmatch 06/07/21 06/07/21 Range/Units 11:32 11:52 RBC 3.34 L (4.30-5.90) m/uL Hgb 10.2 L (13.0-17.5) gm/dL Hct 30.6 L (39.0-53.0) % Plt Count 128 L (150-450) k/uL Chloride (98-107) mmol/L BUN (9-20) mg/dL Creatinine (0.66-1.25) mg/dL Glucose (74-99) mg/dL POC Glucose (mg/dL) 133 H (75-99) mg/dL Total Protein (6.3-8.2) g/dL Albumin (3.5-5.0) g/dL Crossmatch Assessment and Plan Plan: Assessment and plan: #Severe acute blood loss anemia secondary to GI bleed -Tagged RBC scan: Showed active acute GI hemorrhage localized to a small bowel loop in the mid to lower abdomen just left of midline -Status post transfusion of 4 units of packed RBCs June 06 -Status post EGD and colonoscopy June 05 -Hemoglobin Stable continue to monitor H&H every 6 hours -I spoke to interventional radiology department here at [facility] and interventional radiologist recommended transfer to another facility since the procedure cannot be done at [facility]. -In the meantime the patient was getting his second unit of packed RBCs on another 2 units of packed of this is ordered for transfusion total of 4 units -I spoke to general surgeon Dr. Angeles [facility] -In the meantime patient will be transferred to ICU patient. I spoke to the geotechnical operating engineer Dr. Lovell and patient has been accepted to ICU. -Resume PPIs, aspirin on hold secondary to GI bleed - pending transfer to [facility] Procedures: EGD and colonoscopy on June 05: Distal duodenum and ampulla had a normal appearance. There was some mild focal proximal duodenitis noted without apparent ulcer. No stigmata of recent or ongoing bleeding. Cold forceps biopsy was obtained along the second and third portions of the duodenum and focus cold forceps biopsy obtained of the proximal duodenum for comparison. Scope was withdrawn to the antrum which had an essentially normal appearance. Cold forceps biopsies obtained at antrum and incise sure to exclude H. pylori infection. Scope was retroflexed visualizing gastric mucosa from an antegrade and retrograde perspective. There were no signs of GI bleeding seen. No ulcer disease, no grossly apparent gastritis, gastric varices and no hiatal hernia. ge junction was inspected with narrow band imaging revealing an la grade a erosive esophagitis and some mild nodularity and irregularity of the ge junction equivocal inflammatory change versus metaplasia. Cold forceps biopsy at the junction was obtained for clarification. stomach was decompressed and the remaining esophagus and larynx had a normal appearance as the scope was fully withdrawn from the patient. he was then repositioned for colonoscopy. Chronic kidney stage III-IV -The patient has been attending a baseline -Avoid nephrotoxic agents -Lisinopril hold #Hypothyroidism -Resume levothyroxine #Insulin-dependent type 2 diabetes mellitus -Hold Levemir since patient is nothing by mouth #Hypertension -Hold lisinopril for now #History of renal cell carcinoma status post partial nephrectomy many years ago #History of prostate cancer Disposition: Transfer to [facility]
[2021-06-07 16:57] LABS: Glucose,Whole Blood 99 mg/dL (75-99)
[2021-06-07 18:07] LABS: Basophils # (A) 0.1 k/uL (0-0.2); Basophils % (A) 1 %; Eosinophils # (A) 0.2 k/uL (0-0.7); Eosinophils % (A) 3 %; HCT 30.2 % (39.0-53.0); HGB 10.2 gm/dL (13.0-17.5); Lymphocytes # (A) 1.3 k/uL (1.0-4.8); Lymphocytes % (A) 22 %; MCH 30.9 pg (25.0-35.0); MCHC 33.9 g/dL (31.0-37.0); MCV 91.3 fL (80.0-100.0); Mean Platelet Volume 7.3; Monocytes # (A) 0.2 k/uL (0-1.0); Monocytes % (A) 4 %; Neutrophils % (A) 69 %; Platelet Count 142 k/uL (150-450); RBC 3.31 m/uL (4.30-5.90); RDW 15.4 % (11.5-15.5); WBC 5.8 k/uL (3.8-10.6)
[2021-06-07 20:45] LABS: Glucose,Whole Blood 81 mg/dL (75-99)
[2021-06-08 00:19] LABS: Basophils % (A) 1 %; Eosinophils # (A) 0.2 k/uL (0-0.7); Eosinophils % (A) 3 %; HCT 30.9 % (39.0-53.0); HGB 10.2 gm/dL (13.0-17.5); Lymphocytes # (A) 1.4 k/uL (1.0-4.8); Lymphocytes % (A) 24 %; MCH 30.7 pg (25.0-35.0); MCHC 32.9 g/dL (31.0-37.0); MCV 93.5 fL (80.0-100.0); Mean Platelet Volume 7.3; Monocytes # (A) 0.3 k/uL (0-1.0); Monocytes % (A) 4 %; Neutrophils # (A) 3.9 k/uL (1.3-7.7); Neutrophils % (A) 67 %; Platelet Count 141 k/uL (150-450); RBC 3.31 m/uL (4.30-5.90); WBC 5.8 k/uL (3.8-10.6)
[2021-06-08] MEDS: INSULIN ASPART (NovoLOG) 100 UNIT/ML VIAL SQ SCH ×4 (06:24→20:24)
[2021-06-08 06:25] LABS: Glucose,Whole Blood 71 mg/dL (75-99)
[2021-06-08] MEDS: LEVOTHYROXINE 75 MCG TAB PO SCH (06:26)
[2021-06-08] MEDS: PANTOPRAZOLE 40 MG/10 ML VIAL IV SCH ×2 (08:12→20:23)
[2021-06-08 08:17] VITALS: RESP 16
[2021-06-08 10:19] LABS: HCT 29.3 % (39.0-53.0); HGB 9.9 gm/dL (13.0-17.5); MCH 31.3 pg (25.0-35.0); MCHC 33.7 g/dL (31.0-37.0); MCV 92.9 fL (80.0-100.0); Mean Platelet Volume 7.4; Platelet Count 130 k/uL (150-450); RBC 3.16 m/uL (4.30-5.90); RDW 15.6 % (11.5-15.5); WBC 5.7 k/uL (3.8-10.6)
[2021-06-08 10:26] LABS: Albumin 2.6 g/dL (3.5-5.0); Calcium 8.2 mg/dL (8.4-10.2); Potassium 3.8 mmol/L (3.5-5.1); Total Bilirubin 1.1 mg/dL (0.2-1.3); Total Protein 4.9 g/dL (6.3-8.2)
[2021-06-08 10:30] LABS: Glucose,Whole Blood 74 mg/dL (75-99)
--- NOTE | 2021-06-08 10:47 | P.PN ---
Progress Note - Text Progress Note Date: 06/08/21 Patient seen and examined at bedside, did well overnight, no complaints. No orthostatic symptoms with position changes. No chest pain or shortness of breath. Denies pain. Presently nothing by mouth. No additional bowel movement since endoscopy, positive flatus. Denies fever or chills no reported chest pain or shortness of breath. Appropriate response to 4 units PRBC. Awaiting bed availability for transfer to [place]. RBC scan 06/06/20 shows active hemorrhage of small bowel loop, left lower quadrant. CBC from this morning shows white blood cell count of 5.7, hemoglobin 9.9, platelet count of 130. Metabolic panel shows serum sodium 138, potassium 3.8, CO2 of 23, creatinine of 1.83, glucose of 63. Temperature 97.8F, heart rate 83, blood pressure 143/77, respiratory rate 16 and 96% O2 saturation on room air. Cardiovascular: Regular without appreciable murmur. Respiratory: Lungs are clear to auscultation bilaterally without a visual crackles wheezes rhonchi. Abdominal exam: Abdomen is soft, nontender to palpation, no guarding rebound or distention. Extremities: The perfusion warm and well-perfused. Impression: 1) 60-year-old gentleman with acute symptomatic blood loss anemia due to acute upper GI bleed. RBC scan confirms source as small bowel in the area of left lower quadrant. Status post diagnostic EGD and colonoscopy 06/05/2021 revealing a LA grade A erosive esophagitis, some nodular irregularity of the GE junction, mild proximal duodenitis without signs of recent or ongoing bleeding, no active ulcer disease appreciated, no evidence of complications of portal hypertension, AV malformation or angiodysplasia. Colonoscopy revealed only retained melanotic stool, no diverticulosis, no signs of ongoing bleeding seen at the level of the ileocecal valve. No history of oral anticoagulation, INR normal range. Biopsies obtained for infectious etiologies and metaplasia of the GE junction. 2) History of renal cancer status post partial nephrectomy, creatinine stable at around 2. Plan: 1) Patient appears to be stabilized post 4 units PRBCs. If it's going to be a prolonged wait for transfer for angiogram, it may make more sense to discharge the patient and have him follow-up on an outpatient basis with GI, return to emergency department if repeat symptoms. If there is no active bleed at time of angiogram there may not be anything to intervene upon. Transfusion threshold of 7 or for symptomatic blood loss. No nonsteroidal anti-inflammatories. Will advance to clear liquids in the meantime.
[2021-06-08 11:34] LABS: Glucose,Whole Blood 66 mg/dL (75-99)
[2021-06-08 11:52] LABS: Glucose,Whole Blood 78 mg/dL (75-99)
[2021-06-08 13:48] VITALS: BMI 30.7
--- NOTE | 2021-06-08 16:04 | P.PN ---
Subjective Progress Note Date: 06/08/21 History of present illness for H&P 60 year old male with HTN, DM , CKD, prostate cancer patient comes in with sudden episode of fresh bright blood per rectum, without abd pain, patient became dizzy and lightheaded with some mild stomach growls . he never experienced anything like this before, he denies being on any blood thinners, and denies taking any NSAIDs except for Aspirin. denies recent travel, denies any unsanitary food patient had prostate surgery about a month ago , and blood work today showed a drop in hgb of 2 gms patient currently laying down comfortably , denies any chest pain , trouble breathing, dizziness, or abd pain , he denies any alcohol abuse, or history of stomach ulcers Patient reports multiple colonoscopies in the past, nothing other than benign polyps CT of the abd showed no acute pathology except for gas filled bowels Interval history: Patient was seen and examined at bedside. He denies any chest pain or shortness of breath. Patient denied any further episodes of rectal bleed. Pending transfer to [facility] for angiogram and embolization by IR. Hemoglobin stable overnight currently at 9.9. General surgery started the patient clear liquid diet. Objective - Vital Signs Vital signs: Vital Signs Temp 97.8 F 06/08/21 08:00 Pulse 91 06/08/21 12:00 Resp 16 06/08/21 14:00 BP 148/83 06/08/21 12:00 Pulse Ox 97 06/08/21 12:00 Intake & Output 06/07/21 06/08/21 06/08/21 18:59 06:59 18:59 Intake Total 180 Output Total 200 Balance -200 180 Weight 86.183 kg Intake: Oral 180 Output: Urine 200 Other: Voiding Method Toilet Toilet # Voids 1 - Exam General: non toxic, no distress, appears at stated age Derm: warm, dry Head: atraumatic, normocephalic, symmetric Eyes: EOMI, no lid lag, anicteric sclera Mouth: no lip lesion, mucus membranes moist Cardiovascular: S1S2 reg, no murmur, positive posterior tibial pulse bilateral, Lungs: CTA bilateral, no rhonchi, no rales , no accessory muscle use Abdominal: soft, nontender to palpation, no guarding, no appreciable organomegaly Ext: no gross muscle atrophy, no edema, no contractures Neuro: CN II-XI grossly intact, no focal neuro deficits Psych: Alert, oriented, appropriate affect - Labs CBC & Chem 7: 06/08/21 09:34 06/08/21 09:34 Labs: Abnormal Lab Results - Last 24 Hours (Table) 06/07/21 06/07/21 06/08/21 Range/Units 17:41 23:43 06:23 RBC 3.31 L 3.31 L (4.30-5.90) m/uL Hgb 10.2 L 10.2 L (13.0-17.5) gm/dL Hct 30.2 L 30.9 L (39.0-53.0) % RDW 16.0 H (11.5-15.5) % Plt Count 142 L 141 L (150-450) k/uL Chloride (98-107) mmol/L Creatinine (0.66-1.25) mg/dL Glucose (74-99) mg/dL POC Glucose (mg/dL) 71 L (75-99) mg/dL Calcium (8.4-10.2) mg/dL Total Protein (6.3-8.2) g/dL Albumin (3.5-5.0) g/dL 06/08/21 06/08/21 06/08/21 Range/Units 09:34 09:34 10:28 RBC 3.16 L (4.30-5.90) m/uL Hgb 9.9 L (13.0-17.5) gm/dL Hct 29.3 L (39.0-53.0) % RDW 15.6 H (11.5-15.5) % Plt Count 130 L (150-450) k/uL Chloride 111 H (98-107) mmol/L Creatinine 1.83 H (0.66-1.25) mg/dL Glucose 63 L (74-99) mg/dL POC Glucose (mg/dL) 74 L (75-99) mg/dL Calcium 8.2 L (8.4-10.2) mg/dL Total Protein 4.9 L (6.3-8.2) g/dL Albumin 2.6 L (3.5-5.0) g/dL 06/08/21 Range/Units 11:31 RBC (4.30-5.90) m/uL Hgb (13.0-17.5) gm/dL Hct (39.0-53.0) % RDW (11.5-15.5) % Plt Count (150-450) k/uL Chloride (98-107) mmol/L Creatinine (0.66-1.25) mg/dL Glucose (74-99) mg/dL POC Glucose (mg/dL) 66 L (75-99) mg/dL Calcium (8.4-10.2) mg/dL Total Protein (6.3-8.2) g/dL Albumin (3.5-5.0) g/dL Assessment and Plan Plan: Assessment and plan: #Severe acute blood loss anemia secondary to GI bleed -Tagged RBC scan: Showed active acute GI hemorrhage localized to a small bowel loop in the mid to lower abdomen just left of midline -Status post transfusion of 4 units of packed RBCs June 06 -Status post EGD and colonoscopy June 05 -Hemoglobin Stable 9.9 today -I spoke to interventional radiology department here at [facility] and interventional radiologist recommended transfer to another facility since the procedure cannot be done at [facility]. -In the meantime the patient was getting his second unit of packed RBCs on another 2 units of packed of this is ordered for transfusion total of 4 units -I spoke to general surgeon Dr. Angeles [facility] -In [facility] meantime patient will be transferred to ICU patient. -Resume PPIs, aspirin on hold secondary to GI bleed -Patient clear liquid diet - pending transfer to [facility] Procedures: EGD and colonoscopy on June 05: Distal duodenum and ampulla had a normal appearance. There was some mild focal proximal duodenitis noted without apparent ulcer. No stigmata of recent or ongoing bleeding. Cold forceps biopsy was obtained along the second and third portions of the duodenum and focus cold forceps biopsy obtained of the proximal duodenum for comparison. Scope was withdrawn to the antrum which had an essentially normal appearance. Cold forceps biopsies obtained at antrum and incise sure to exclude H. pylori infection. Scope was retroflexed visualizing gastric mucosa from an antegrade and retrograde perspective. There were no signs of GI bleeding seen. No ulcer disease, no grossly apparent gastritis, gastric varices and no hiatal hernia. ge junction was inspected with narrow band imaging revealing an la grade a erosive esophagitis and some mild nodularity and irregularity of the ge junction equivocal inflammatory change versus metaplasia. Cold forceps biopsy at the junction was obtained for clarification. stomach was decompressed and the remaining esophagus and larynx had a normal appearance as the scope was fully withdrawn from the patient. he was then repositioned for colonoscopy. Acute kidney injury secondary generally -Improved -Lisinopril on hold Chronic kidney stage III-IV -Avoid nephrotoxic agents -Lisinopril hold #Hypothyroidism -Resume levothyroxine #Insulin-dependent type 2 diabetes mellitus -Hold Levemir since patient is on clear liquid diet #Hypertension -Hold lisinopril for now #History of renal cell carcinoma status post partial nephrectomy many years ago #History of prostate cancer Disposition: Transfer to [facility]
[2021-06-08 16:34] LABS: Glucose,Whole Blood 135 mg/dL (75-99)
[2021-06-08] MEDS: SODIUM CHLORIDE 0.9% 1,000 ML IV SCH ×2 (19:29→20:14)
[2021-06-08 20:20] LABS: Glucose,Whole Blood 219 mg/dL (75-99)
[2021-06-09] MEDS: SODIUM CHLORIDE 0.9% 1,000 ML IV SCH (03:42)
[2021-06-09 06:39] LABS: Glucose,Whole Blood 100 mg/dL (75-99)
[2021-06-09] MEDS: INSULIN ASPART (NovoLOG) 100 UNIT/ML VIAL SQ SCH ×4 (06:42→21:03)
[2021-06-09] MEDS: LEVOTHYROXINE 75 MCG TAB PO SCH (06:43)
[2021-06-09] MEDS: PANTOPRAZOLE 40 MG/10 ML VIAL IV SCH ×2 (08:10→21:03)
[2021-06-09 08:58] LABS: Anisocytosis Slight; Basophils % (A) 0 %; Eosinophils # (A) 0.2 k/uL (0-0.7); Eosinophils % (A) 4 %; HCT 29.5 % (39.0-53.0); HGB 9.8 gm/dL (13.0-17.5); Lymphocytes % (A) 20 %; MCH 30.8 pg (25.0-35.0); MCHC 33.2 g/dL (31.0-37.0); MCV 92.9 fL (80.0-100.0); Mean Platelet Volume 7.6; Monocytes # (A) 0.2 k/uL (0-1.0); Monocytes % (A) 4 %; Neutrophils # (A) 3.5 k/uL (1.3-7.7); Neutrophils % (A) 71 %; Platelet Count 139 k/uL (150-450); RBC 3.18 m/uL (4.30-5.90); RDW 16.4 % (11.5-15.5); WBC 4.9 k/uL (3.8-10.6)
[2021-06-09 09:31] LABS: Albumin 2.5 g/dL (3.5-5.0); Calcium 8.2 mg/dL (8.4-10.2); Potassium 3.6 mmol/L (3.5-5.1); Total Bilirubin 0.8 mg/dL (0.2-1.3); Total Protein 4.8 g/dL (6.3-8.2)
--- NOTE | 2021-06-09 10:31 | P.PN ---
Subjective Progress Note Date: 06/09/21 History of present illness for H&P 60 year old male with HTN, DM , CKD, prostate cancer patient comes in with sudden episode of fresh bright blood per rectum, without abd pain, patient became dizzy and lightheaded with some mild stomach growls . he never experienced anything like this before, he denies being on any blood thinners, and denies taking any NSAIDs except for Aspirin. denies recent travel, denies any unsanitary food patient had prostate surgery about a month ago , and blood work today showed a drop in hgb of 2 gms patient currently laying down comfortably , denies any chest pain , trouble breathing, dizziness, or abd pain , he denies any alcohol abuse, or history of stomach ulcers Patient reports multiple colonoscopies in the past, nothing other than benign polyps CT of the abd showed no acute pathology except for gas filled bowels Interval history: Patient was seen and examined at bedside. He denies any chest pain or shortness of breath. Patient had bowel movement yesterday was black tarry stool without any red blood. Otherwise no acute changes overnight Objective - Vital Signs Vital signs: Vital Signs Temp 98.7 F 06/09/21 08:00 Pulse 87 06/09/21 08:00 Resp 16 06/09/21 08:00 BP 149/70 06/09/21 08:00 Pulse Ox 96 06/09/21 08:00 Intake & Output 06/08/21 06/09/21 06/09/21 18:59 06:59 18:59 Intake Total 180 10 240 Balance 180 10 240 Weight 86.183 kg Intake: IV 10 Invasive Line 2 10 Oral 180 240 Other: Voiding Method Toilet Toilet # Voids 1 # Bowel Movements 1 - Exam General: non toxic, no distress, appears at stated age Derm: warm, dry Head: atraumatic, normocephalic, symmetric Eyes: EOMI, no lid lag, anicteric sclera Mouth: no lip lesion, mucus membranes moist Cardiovascular: S1S2 reg, no murmur, positive posterior tibial pulse bilateral, Lungs: CTA bilateral, no rhonchi, no rales , no accessory muscle use Abdominal: soft, nontender to palpation, no guarding, no appreciable organomegaly Ext: no gross muscle atrophy, no edema, no contractures Neuro: CN II-XI grossly intact, no focal neuro deficits Psych: Alert, oriented, appropriate affect - Labs CBC & Chem 7: 06/09/21 08:18 06/09/21 08:18 Labs: Abnormal Lab Results - Last 24 Hours (Table) 06/08/21 06/08/21 06/08/21 Range/Units 09:34 10:28 11:31 RBC (4.30-5.90) m/uL Hgb (13.0-17.5) gm/dL Hct (39.0-53.0) % RDW (11.5-15.5) % Plt Count (150-450) k/uL Chloride 111 H (98-107) mmol/L Creatinine 1.83 H (0.66-1.25) mg/dL Glucose 63 L (74-99) mg/dL POC Glucose (mg/dL) 74 L 66 L (75-99) mg/dL Calcium 8.2 L (8.4-10.2) mg/dL Total Protein 4.9 L (6.3-8.2) g/dL Albumin 2.6 L (3.5-5.0) g/dL 06/08/21 06/08/21 06/09/21 Range/Units 16:32 20:08 06:02 RBC (4.30-5.90) m/uL Hgb (13.0-17.5) gm/dL Hct (39.0-53.0) % RDW (11.5-15.5) % Plt Count (150-450) k/uL Chloride (98-107) mmol/L Creatinine (0.66-1.25) mg/dL Glucose (74-99) mg/dL POC Glucose (mg/dL) 135 H 219 H 100 H (75-99) mg/dL Calcium (8.4-10.2) mg/dL Total Protein (6.3-8.2) g/dL Albumin (3.5-5.0) g/dL 06/09/21 06/09/21 Range/Units 08:18 08:18 RBC 3.18 L (4.30-5.90) m/uL Hgb 9.8 L (13.0-17.5) gm/dL Hct 29.5 L (39.0-53.0) % RDW 16.4 H (11.5-15.5) % Plt Count 139 L (150-450) k/uL Chloride 111 H (98-107) mmol/L Creatinine 1.74 H (0.66-1.25) mg/dL Glucose 166 H (74-99) mg/dL POC Glucose (mg/dL) (75-99) mg/dL Calcium 8.2 L (8.4-10.2) mg/dL Total Protein 4.8 L (6.3-8.2) g/dL Albumin 2.5 L (3.5-5.0) g/dL Assessment and Plan Plan: Assessment and plan: #Severe acute blood loss anemia secondary to GI bleed -Tagged RBC scan: Showed active acute GI hemorrhage localized to a small bowel loop in the mid to lower abdomen just left of midline -Status post transfusion of 4 units of packed RBCs June 06 -Status post EGD and colonoscopy June 05 -Hemoglobin Stable 9.8 today -I spoke to interventional radiology department here at [facility] and interventional radiologist recommended transfer to another facility since the procedure cannot be done at [facility]. -In the meantime the patient was getting his second unit of packed RBCs on another 2 units of packed of this is ordered for transfusion total of 4 units -I spoke to general surgeon Dr. Angeles [facility] -Resume PPIs, aspirin on hold secondary to GI bleed -Diet will be advanced to full liquid diet -Pending transfer to [facility]. In other hand if patient didn't get transferred to [facility] his diet will be advanced to GI soft. Procedures: EGD and colonoscopy on June 05: Distal duodenum and ampulla had a normal appearance. There was some mild focal proximal duodenitis noted without apparent ulcer. No stigmata of recent or ongoing bleeding. Cold forceps biopsy was obtained along the second and third portions of the duodenum and focus cold forceps biopsy obtained of the proximal duodenum for comparison. Scope was withdrawn to the antrum which had an essentially normal appearance. Cold forceps biopsies obtained at antrum and incise sure to exclude H. pylori infection. Scope was retroflexed visualizing gastric mucosa from an antegrade and retrograde perspective. There were no sign s of GI bleeding seen. No ulcer disease, no grossly apparent gastritis, gastric varices and no hiatal hernia. ge junction was inspected with narrow band imaging revealing an la grade a erosive esophagitis and some mild nodularity and irregularity of the ge junction equivocal inflammatory change versus metaplasia. Cold forceps biopsy at the junction was obtained for clarification. stomach was decompressed and the remaining esophagus and larynx had a normal appearance as the scope was fully withdrawn from the patient. he was then repositioned for colonoscopy. #Acute kidney injury secondary to prerenal azotemia and possible ATN from GI bleed -Improving -Lisinopril on hold #Chronic kidney stage III-IV -Avoid nephrotoxic agents -Lisinopril hold #Hypertension -Lisinopril on hold due to acute kidney injury -Start when necessary hydralazine for systolic blood pressure greater than 160 -Discontinue intravenous fluid #Hypothyroidism -Resume levothyroxine #Insulin-dependent type 2 diabetes mellitus -Hold Levemir since patient is on clear liquid diet #Hypertension #History of renal cell carcinoma status post partial nephrectomy many years ago #History of prostate cancer Disposition: Transfer to [facility]
[2021-06-09 11:57] LABS: Glucose,Whole Blood 132 mg/dL (75-99)
--- NOTE | 2021-06-09 13:19 | P.PN ---
Progress Note - Text Progress Note Date: 06/09/21 Patient seen and examined at bedside, did well overnight, no complaints. Tolerating full liquids. No orthostatic symptoms with position changes. No chest pain or shortness of breath. Denies pain. Presently nothing by mouth. Formed melanotic bowel movement overnight. Denies fever or chills no reported chest pain or shortness of breath. Appropriate response to 4 units PRBC. Awaiting bed availability for transfer to [place]. RBC scan 06/06/20 shows active hemorrhage of small bowel loop, left lower quadrant. CBC from this morning shows white blood cell count of 4.9, hemoglobin 9.8, platelet count of 139. Metabolic panel shows serum sodium 138, potassium 3.6, CO2 of 23, creatinine of 1.74, glucose of 166. Temperature 98.7F, heart rate 87, blood pressure 149/70, respiratory rate 16 and 96% O2 saturation on room air. Cardiovascular: Regular without appreciable murmur. Respiratory: Lungs are clear to auscultation bilaterally without a visual crackles wheezes rhonchi. Abdominal exam: Abdomen is soft, nontender to palpation, no guarding rebound or distention. Extremities: The perfusion warm and well-perfused. Impression: 1) 60-year-old gentleman with acute symptomatic blood loss anemia due to acute upper GI bleed. RBC scan confirms source as small bowel in the area of left lower quadrant. Status post diagnostic EGD and colonoscopy 06/05/2021 revealing a LA grade A erosive esophagitis, some nodular irregularity of the GE junction, mild proximal duodenitis without signs of recent or ongoing bleeding, no active ulcer disease appreciated, no evidence of complications of portal hypertension, AV malformation or angiodysplasia. Colonoscopy revealed only retained melanotic stool, no diverticulosis, no signs of ongoing bleeding seen at the level of the ileocecal valve. No history of oral anticoagulation, INR normal range. Biopsies obtained for infectious etiologies and metaplasia of the GE junction. 2) History of renal cancer status post partial nephrectomy, creatinine stable at around 2. Plan: 1) Patient appears hemodynamically stable at present. OK for discharge from surgical standpoint with follow up with primary care in 1 week, GI within 2 weeks. Recommend twice daily acid suppression course for 6-8 weeks given LA grade A erosive esophagitis on EGD. No nonsteroidal anti-inflammatories.
[2021-06-09 16:38] LABS: Glucose,Whole Blood 135 mg/dL (75-99)
[2021-06-09 21:40] LABS: Glucose,Whole Blood 228 mg/dL (75-99)
[2021-06-10] MEDS: INSULIN ASPART (NovoLOG) 100 UNIT/ML VIAL SQ SCH ×2 (06:27→12:27)
[2021-06-10 06:42] LABS: Glucose,Whole Blood 112 mg/dL (75-99)
[2021-06-10 08:32] LABS: Anisocytosis Slight; Basophils % (A) 1 %; Eosinophils # (A) 0.2 k/uL (0-0.7); Eosinophils % (A) 3 %; HCT 32.9 % (39.0-53.0); HGB 10.8 gm/dL (13.0-17.5); Lymphocytes % (A) 18 %; MCH 30.9 pg (25.0-35.0); MCHC 32.9 g/dL (31.0-37.0); MCV 93.9 fL (80.0-100.0); Macrocytosis Slight; Mean Platelet Volume 7.5; Monocytes # (A) 0.3 k/uL (0-1.0); Monocytes % (A) 5 %; Neutrophils # (A) 4.3 k/uL (1.3-7.7); Neutrophils % (A) 73 %; Platelet Count 173 k/uL (150-450); Poikilocytosis Slight; RDW 16.9 % (11.5-15.5); WBC 5.9 k/uL (3.8-10.6)
[2021-06-10] MEDS: PANTOPRAZOLE 40 MG/10 ML VIAL IV SCH (08:44)
[2021-06-10 08:50] LABS: Potassium 3.8 mmol/L (3.5-5.1)
--- NOTE | 2021-06-10 10:07 | P.PN ---
Progress Note - Text Progress Note Date: 06/10/21 Patient seen and examined at bedside, did well overnight, no complaints. Tolerating full liquids. No orthostatic symptoms with position changes. No chest pain or shortness of breath. Denies pain. Formed melanotic bowel movement this morning. Denies fever or chills, no reported chest pain or shortness of breath. Awaiting bed availability for transfer to [place]. RBC scan 06/06/20 shows active hemorrhage of small bowel loop, left lower quadrant. CBC from this morning shows white blood cell count of 5.9, hemoglobin 10.8, platelet count of 173. Metabolic panel shows serum sodium 140, potassium 3.8, CO2 of 23, creatinine of 1.77, glucose of 134. Temperature 98.0F, heart rate 82, blood pressure 140/80, respiratory rate 16 and 96% O2 saturation on room air. Cardiovascular: Regular without appreciable murmur. Respiratory: Lungs are clear to auscultation bilaterally without a visual cr ackles wheezes rhonchi. Abdominal exam: Abdomen is soft, nontender to palpation, no guarding rebound or distention. Extremities: The perfusion warm and well-perfused. Impression: 1) 60-year-old gentleman with acute symptomatic blood loss anemia due to acute upper GI bleed. Appropriate response to 4 units PRBC, appears hemodynamically stable. RBC scan confirms source as small bowel in the area of left lower quadrant. Status post diagnostic EGD and colonoscopy 06/05/2021 revealing a LA grade A erosive esophagitis, some nodular irregularity of the GE junction, mild proximal duodenitis without signs of recent or ongoing bleeding, no active ulcer disease appreciated, no evidence of complications of portal hypertension, AV malformation or angiodysplasia. Colonoscopy revealed only retained melanotic stool, no diverticulosis, no signs of ongoing bleeding seen at the level of the ileocecal valve. No history of oral anticoagulation, INR normal range. Biopsies obtained for infectious etiologies and metaplasia of the GE junction. 2) History of renal cancer status post partial nephrectomy, creatinine stable at around 2. Plan: 1) OK for discharge from surgical standpoint with follow up with primary care in 1 week, GI within 2 weeks. Will sign off today, will re-assess at your request. Recommend twice daily acid suppression course for 6-8 weeks given LA grade A erosive esophagitis on EGD. No nonsteroidal anti-inflammatories.
[2021-06-10 12:02] LABS: Glucose,Whole Blood 170 mg/dL (75-99)
[2021-06-10 12:13] VITALS: BP 122/74; PULSE 72; TEMP 97.1
--- NOTE | 2021-06-10 12:28 | P.DS ---
Providers Date of admission: 06/04/21 10:52 Expected date of discharge: 06/10/21 Attending physician: Amber Valerio MD Consults: 06/04/21 00:45 Consult Physician Urgent Consulting Provider: Trino Angeles Consult Reason/Comments: GI bleed Do you want consulting provider notified?: Yes Primary care physician: [facility] Course: History of present illness per H&P 60 year old male with HTN, DM , CKD, prostate cancer patient comes in with sudden episode of fresh bright blood per rectum, without abd pain, patient became dizzy and lightheaded with some mild stomach growls . he never experienced anything like this before, he denies being on any blood thinners, and denies taking any NSAIDs except for Aspirin. denies recent travel, denies any unsanitary food patient had prostate surgery about a month ago , and blood work today showed a drop in hgb of 2 gms patient currently laying down comfortably , denies any chest pain , trouble breathing, dizziness, or abd pain , he denies any alcohol abuse, or history of stomach ulcers Patient reports multiple colonoscopies in the past, nothing other than benign polyps CT of the abd showed no acute pathology except for gas filled bowels. #Severe acute blood loss anemia secondary to GI bleed -Tagged RBC scan: Showed active acute GI hemorrhage localized to a small bowel loop in the mid to lower abdomen just left of midline -Status post transfusion of 4 units of packed RBCs June 06 -Status post EGD and colonoscopy June 05 -Hemoglobin Stable 9.8 today -I spoke to interventional radiology department here at [facility] and interventional radiologist recommended transfer to another facility since the procedure cannot be done at [facility]. -In the meantime the patient was getting his second unit of packed RBCs on another 2 units of packed of this is ordered for transfusion total of 4 units -I spoke to general surgeon Dr. Angeles recommended the patient to be transferred to another facility -Resume PPIs, aspirin on hold secondary to GI bleed -Diet will be advanced to a diabetic diet. -Patient hemoglobin remained stable. General surgical intervention for discharge -Since patient transfer to another facility was declined by Owen Orozco and delayed by Neel and the patient hemoglobin seems to be stable without any signs of active GI bleed the patient deemed to be stable for discharge to follow-up with GI as an outpatient for Endoscopy. Patient was instructed to discontinue aspirin on discharge. He was discharged on proton pulmonary to Protonix 40 mg twice daily. Patient was instructed to come to the hospital if he have recurrent blood in the stool. -Plan to check his CBC on June 12 for results to be reported to his primary care physician. Procedures: EGD and colonoscopy on June 05: Distal duodenum and ampulla had a normal appearance. There was some mild focal proximal duodenitis noted without apparent ulcer. No stigmata of recent or ongoing bleeding. Cold forceps biopsy was obtained along the second and third portions of the duodenum and focus cold forceps biopsy obtained of the proximal duodenum for comparison. Scope was withdrawn to the antrum which had an essentially normal appearance. Cold forceps biopsies obtained at antrum and incise sure to exclude H. pylori infection. Scope was retroflexed visualizing gastric mucosa from an antegrade and retrograde perspective. There were no signs of GI bleeding seen. No ulcer disease, no grossly apparent gastritis, gastric varices and no hiatal hernia. ge junction was inspected with narrow band imaging revealing an la grade a erosive esophagitis and some mild nodularity and irregularity of the ge junction equivocal inflammatory change versus metaplasia. Cold forceps biopsy at the junction was obtained for clarification. stomach was decompressed and the remaining esophagus and larynx had a normal appearance as the scope was fully withdrawn from the patient. he was then repositioned for colonoscopy. #Acute kidney injury secondary to prerenal azotemia and possible ATN from GI bleed -Improving #Chronic kidney stage III-IV -Avoid nephrotoxic agents -Lisinopril hold #Hypertension -ULISES was on hold due to acute kidney injury -Resume enalapril on discharge #Hypothyroidism -Resume levothyroxine #Insulin-dependent type 2 diabetes mellitus -Resume home insulin #History of renal cell carcinoma status post partial nephrectomy many years ago #History of prostate cancer Time spent in the discharge process 35 minutes Assessment: General: non toxic, no distress, appears at stated age Derm: warm, dry Head: atraumatic, normocephalic, symmetric Eyes: EOMI, no lid lag, anicteric sclera Mouth: no lip lesion, mucus membranes moist Cardiovascular: S1S2 reg, no murmur, positive posterior tibial pulse bilateral, Lungs: CTA bilateral, no rhonchi, no rales , no accessory muscle use Abdominal: soft, nontender to palpation, no guarding, no appreciable organomegaly Ext: no gross muscle atrophy, no edema, no contractures Neuro: CN II-XI grossly intact, no focal neuro deficits Psych: Alert, oriented, appropriate affect Patient Condition at Discharge: Fair Plan - Discharge Summary Discharge Rx Participant: No New Discharge Prescriptions: New Pantoprazole [Protonix] 40 mg PO BID #60 tab Continue Allopurinol [Zyloprim] 100 mg PO BID Cyanocobalamin (Vitamin B-12) [Vitamin B12] 5,000 mcg PO DAILY calcitrioL [Calcitriol] 0.5 mcg PO HOWARD Cholecalciferol [Vitamin D3 (25 Mcg = 1000 Iu)] 50 mcg PO DAILY Levothyroxine Sodium [Synthroid] 75 mcg PO MOTUWETHFRSA Folic Acid-Vit B Complex-Vit C [Nephrocaps] 1 mg PO DAILY Atorvastatin Calcium [Lipitor] 10 mg PO DAILY Magnesium 400 mg PO DAILY Dulaglutide [Trulicity] 1.5 mg SQ TU Furosemide [Lasix] 40 mg PO Q48H Insulin Detemir [Levemir Flextouch Pen] 30 units SQ HS Discontinued Aspirin 81 mg PO DAILY Ketorolac [Toradol] 10 mg PO Q6H PRN PRN Reason: Pain No Action Enalapril Maleate 5 mg PO DAILY Discharge Medication List Allopurinol [Zyloprim] 100 mg PO BID 04/18/21 [History] Atorvastatin Calcium [Lipitor] 10 mg PO DAILY 04/18/21 [History] Cholecalciferol [Vitamin D3 (25 Mcg = 1000 Iu)] 50 mcg PO DAILY 04/18/21 [History] Cyanocobalamin (Vitamin B-12) [Vitamin B12] 5,000 mcg PO DAILY 04/18/21 [History] Dulaglutide [Trulicity] 1.5 mg SQ TU 04/18/21 [History] Enalapril Maleate 5 mg PO DAILY 04/18/21 [History] Folic Acid-Vit B Complex-Vit C [Nephrocaps] 1 mg PO DAILY 04/18/21 [History] Levothyroxine Sodium [Synthroid] 75 mcg PO MOTUWETHFRSA 04/18/21 [History] Magnesium 400 mg PO DAILY 04/18/21 [History] Furosemide [Lasix] 40 mg PO Q48H 06/03/21 [History] Insulin Detemir [Levemir Flextouch Pen] 30 units SQ HS 06/03/21 [History] calcitrioL [Calcitriol] 0.5 mcg PO HOWARD 06/03/21 [History] Pantoprazole [Protonix] 40 mg PO BID #60 tab 06/10/21 [Rx] Follow up Appointment(s)/Referral(s): Migdalia Majano MD [STAFF PHYSICIAN] - 1 Week Heri Velez MD [Primary Care Provider] - 1-2 days Ambulatory/Diagnostic Orders: Complete Blood Count w/diff [LAB.AMB] Time Frame: 06/12/21, Location: None Selected
== END 2021-06-10 13:45 | disposition home or self-care (01) | DRG 380 ==
LOC: EC 21:00 → 5NMEDONC 06-04 02:47 → 3NCARDOBS 06-04 06:46 → OBSVTOIN 06-04 10:52 → 3SCARD 06-06 20:00
PROVIDERS: ADMIT Internal Medicine; ATTEND Internal Medicine
PROC: 0DJD8ZZ Inspection of Lower Intestinal Tract, Via Natural or Artificial Opening Endoscopic (ICD-10-PCS; principal; 2021-06-05 07:50)
PROC: 0DB78ZX Excision of Stomach, Pylorus, Via Natural or Artificial Opening Endoscopic, Diagnostic (ICD-10-PCS; principal; 2021-06-05 07:50)
PROC: 0DB98ZX Excision of Duodenum, Via Natural or Artificial Opening Endoscopic, Diagnostic (ICD-10-PCS; principal; 2021-06-05 07:50)
PROC: 0DB48ZX Excision of Esophagogastric Junction, Via Natural or Artificial Opening Endoscopic, Diagnostic (ICD-10-PCS; principal; 2021-06-05 07:50)
PROC: 30233N1 Transfusion of Nonautologous Red Blood Cells into Peripheral Vein, Percutaneous Approach (ICD-10-PCS; 2021-06-06)
DX: K22.11 Ulcer of esophagus with bleeding (principal); N17.0 Acute kidney failure with tubular necrosis; N17.9 Acute kidney failure, unspecified; N18.4 Chronic kidney disease, stage 4 (severe); D62 Acute posthemorrhagic anemia; E78.5 Hyperlipidemia, unspecified; I12.9 Hypertensive chronic kidney disease with stage 1 through stage 4 chronic kidney disease, or unspecified chronic kidney disease; K29.80 Duodenitis without bleeding; E11.22 Type 2 diabetes mellitus with diabetic chronic kidney disease; E03.9 Hypothyroidism, unspecified; Z20.822 Contact with and (suspected) exposure to COVID-19; Z79.4 Long term (current) use of insulin; Z79.82 Long term (current) use of aspirin; Z79.890 Hormone replacement therapy; Z79.899 Other long term (current) drug therapy; Z80.0 Family history of malignant neoplasm of digestive organs; Z80.1 Family history of malignant neoplasm of trachea, bronchus and lung; Z85.46 Personal history of malignant neoplasm of prostate; Z85.528 Personal history of other malignant neoplasm of kidney; Z87.11 Personal history of peptic ulcer disease; Z86.010 Personal history of colon polyps; Z87.891 Personal history of nicotine dependence; Z90.5 Acquired absence of kidney
CPT/HCPCS: 36415; 43239; 45378; 74176; 78278; 80048; 80053; 82272; 82330; 83605; 83690; 83735; 84484; 85025; 85027; 85610; 85730; 86850; 86900; 86901; 86920; 87635; 88305; 96361; 96372; 96374; 96375; 96376; 99285

== ENCOUNTER → 2021-06-13 | Outpatient (CLI) | payer MEDICAID | END | disposition home or self-care (01) | LOC: LABWHC1 14:26 | PROVIDERS: ATTEND Urology | DX: C61 Malignant neoplasm of prostate (principal) | CPT/HCPCS: 36415; 84153 ==

== ENCOUNTER → 2021-08-04 | Outpatient (CLI) | payer MEDICAID ==
[2021-08-04 17:04] LABS: Basophils # (A) 0.06 X 10*3/uL (0.00-0.10); Basophils % (A) 0.8 %; Eosinophils # (A) 0.16 X 10*3/uL (0.04-0.35); Eosinophils % (A) 2.2 %; HCT 48.1 % (39.6-50.0); HGB 15.1 g/dL (13.0-17.0); Immature Grans, Automated 0.8 %; Lymphocytes # (A) 1.56 X 10*3/uL (0.90-5.00); Lymphocytes % (A) 21.2 %; MCH 28.8 pg (27.0-32.0); MCHC 31.4 g/dL (32.0-37.0); MCV 91.6 fL (80.0-97.0); Mean Platelet Volume 9.6 fL (9.5-12.2); Monocytes # (A) 0.33 X 10*3/uL (0.20-1.00); Monocytes % (A) 4.5 %; NRBC Per 100 WBC 0 /100 WBCS (0.0-0.0); Neutrophils % (A) 70.5 %; Platelet Count 211 X 10*3/uL (140-440); RBC 5.25 X 10*6/uL (4.40-5.60); WBC 7.37 X 10*3/uL (4.50-10.00)
[2021-08-04 17:27] LABS: % Iron Saturation 24.58 (15.00-50.00); African American GFR (CKD) 36.9 (60.0-200.0); Albumin 4.5 g/dL (3.8-4.9); Albumin/Globulin Ratio 1.71 (1.60-3.17); Anion Gap 11.5 mmol/L (10.00-18.00); BUN/Creat Ratio 15.5 Ratio (12.00-20.00); Blood Urea Nitrogen 34.1 mg/dL (9.0-27.0); Carbon Dioxide 25.9 mmol/L (20.0-27.5); Globulin 2.6 g/dL (1.6-3.3); Magnesium 2.1 mg/dL (1.5-2.4); Non-African American GFR(CKD) 31.8 (60.0-200.0); Phosphorus 3.5 mg/dL (2.4-5.1); Potassium 4.5 mmol/L (3.5-5.5); Total Bilirubin 0.5 mg/dL (0.30-1.20); Total Protein 7.1 g/dL (6.2-8.2); Uric Acid 5.4 mg/dL (3.7-8.7)
[2021-08-04 17:50] LABS: Ferritin 67.4 ng/mL (22.0-322.0)
[2021-08-04 19:09] LABS: Urine Creatinine 19.3 mg/dL (39.0-259.0)
== END | disposition home or self-care (01) ==
LOC: LABWHC1 11:08
PROVIDERS: ATTEND Internal Medicine
DX: N39.0 Urinary tract infection, site not specified (principal); N25.81 Secondary hyperparathyroidism of renal origin; E55.9 Vitamin D deficiency, unspecified; M10.9 Gout, unspecified; N18.32 Chronic kidney disease, stage 3b; D63.1 Anemia in chronic kidney disease
CPT/HCPCS: 36415; 80053; 82043; 82306; 82570; 82728; 83540; 83550; 83735; 83970; 84100; 84550; 85025

== ENCOUNTER → 2021-12-08 | Outpatient (CLI) | payer MEDICAID ==
[2021-12-08 16:26] LABS: HCT 48.2 % (39.6-50.0); HGB 15.4 g/dL (13.0-17.0); MCH 29.6 pg (27.0-32.0); MCV 92.7 fL (80.0-97.0); Mean Platelet Volume 9.8 fL (9.5-12.2); NRBC Per 100 WBC 0 /100 WBCS (0.0-0.0); Platelet Count 203 X 10*3/uL (140-440); RDW 13.6 % (11.5-14.5); WBC 7.45 X 10*3/uL (4.50-10.00)
[2021-12-08 16:27] LABS: Appearance,Urine Clear (Clear); Bilirubin,Urine Negative (Negative); Blood,Urine Negative (Negative); Color,Urine Yellow (Yellow); Ketones,Urine Negative (Negative); Nitrite,Urine Negative (Negative); PH, Urine 5.5 (5.0-8.0); Specific Gravity,Urine 1.007 (1.001-1.030); Urobilinogen,Urine 0.2 (0.2,1.0)
[2021-12-08 17:32] LABS: % Iron Saturation 32.1 (15.00-50.00); African American GFR (CKD) 34.4 (60.0-200.0); Albumin 4.6 g/dL (3.8-4.9); Albumin/Globulin Ratio 1.7 (1.60-3.17); BUN/Creat Ratio 16.21 Ratio (12.00-20.00); Blood Urea Nitrogen 37.6 mg/dL (9.0-27.0); Calcium 9.7 mg/dL (8.7-10.3); Carbon Dioxide 25.7 mmol/L (20.0-27.5); Globulin 2.7 g/dL (1.6-3.3); Magnesium 2.2 mg/dL (1.5-2.4); Non-African American GFR(CKD) 29.7 (60.0-200.0); Phosphorus 3.4 mg/dL (2.4-5.1); Potassium 4.2 mmol/L (3.5-5.5); Total Bilirubin 0.7 mg/dL (0.30-1.20); Total Protein 7.3 g/dL (6.2-8.2); Uric Acid 6.2 mg/dL (3.7-8.7)
[2021-12-08 18:28] LABS: Urine Creatinine 20.8 mg/dL (39.0-259.0)
== END | disposition home or self-care (01) ==
LOC: LABWHC1 10:50
PROVIDERS: ATTEND Internal Medicine
DX: D63.1 Anemia in chronic kidney disease (principal); N39.0 Urinary tract infection, site not specified; N25.81 Secondary hyperparathyroidism of renal origin; E55.9 Vitamin D deficiency, unspecified; M10.9 Gout, unspecified; N18.32 Chronic kidney disease, stage 3b
CPT/HCPCS: 36415; 80053; 81003; 82043; 82306; 82570; 82728; 83540; 83550; 83735; 83970; 84100; 84550; 85027

== ENCOUNTER → 2022-01-05 | Outpatient (CLI) | payer MEDICAID | END | disposition home or self-care (01) | LOC: LABWHC1 10:37 | PROVIDERS: ATTEND Urology | DX: C61 Malignant neoplasm of prostate (principal) | CPT/HCPCS: 36415; 84153 ==

== ENCOUNTER → 2022-04-05 | Outpatient (CLI) | payer MEDICAID ==
[2022-04-05 17:46] LABS: Basophils # (A) 0.07 X 10*3/uL (0.00-0.10); Basophils % (A) 0.9 %; Eosinophils # (A) 0.14 X 10*3/uL (0.04-0.35); Eosinophils % (A) 1.8 %; HGB 15.5 g/dL (13.0-17.0); Immature Grans, Automated 0.6 %; Lymphocytes # (A) 1.66 X 10*3/uL (0.90-5.00); Lymphocytes % (A) 21.5 %; MCH 30.4 pg (27.0-32.0); MCV 92.2 fL (80.0-97.0); Mean Platelet Volume 10.1 fL (9.5-12.2); Monocytes # (A) 0.35 X 10*3/uL (0.20-1.00); Monocytes % (A) 4.5 %; NRBC Per 100 WBC 0 /100 WBCS (0.0-0.0); Neutrophils # (A) 5.45 X 10*3/uL (1.80-7.70); Neutrophils % (A) 70.7 %; Platelet Count 200 X 10*3/uL (140-440); RDW 13.6 % (11.5-14.5); WBC 7.72 X 10*3/uL (4.50-10.00)
[2022-04-05 18:05] LABS: Appearance,Urine Clear (Clear); Bilirubin,Urine Negative (Negative); Blood,Urine Negative (Negative); Color,Urine Yellow (Yellow); Ketones,Urine Negative (Negative); Nitrite,Urine Negative (Negative); PH, Urine 5.5 (5.0-8.0); Urobilinogen,Urine 0.2 (0.2,1.0)
[2022-04-05 21:29] LABS: % Iron Saturation 27.37 (15.00-50.00); African American GFR (CKD) 31.4 (60.0-200.0); Albumin 4.4 g/dL (3.8-4.9); Albumin/Globulin Ratio 1.65 (1.60-3.17); Anion Gap 19.5 mmol/L (10.00-18.00); BUN/Creat Ratio 15.88 Ratio (12.00-20.00); Blood Urea Nitrogen 39.7 mg/dL (9.0-27.0); Calcium 9.6 mg/dL (8.7-10.3); Carbon Dioxide 21.7 mmol/L (20.0-27.5); Globulin 2.7 g/dL (1.6-3.3); Magnesium 2.2 mg/dL (1.5-2.4); Non-African American GFR(CKD) 27.1 (60.0-200.0); Phosphorus 3.8 mg/dL (2.4-5.1); Potassium 4.7 mmol/L (3.5-5.5); Total Bilirubin 0.7 mg/dL (0.30-1.20); Total Protein 7.1 g/dL (6.2-8.2); Uric Acid 5.3 mg/dL (3.7-8.7)
== END | disposition home or self-care (01) ==
LOC: LABWHC1 14:04
PROVIDERS: ATTEND Internal Medicine Nephrology
DX: N18.32 Chronic kidney disease, stage 3b (principal); E55.9 Vitamin D deficiency, unspecified; D64.9 Anemia, unspecified; R80.9 Proteinuria, unspecified; N25.81 Secondary hyperparathyroidism of renal origin; M10.9 Gout, unspecified; N39.0 Urinary tract infection, site not specified
CPT/HCPCS: 36415; 80053; 81003; 82306; 82728; 83540; 83550; 83735; 83970; 84100; 84550; 85025

== ENCOUNTER → 2022-04-24 | Outpatient (CLI) | payer MEDICAID ==
--- NOTE | 2022-04-25 08:09 | MR ---
EXAMINATION TYPE: MR shoulder RT wo con DATE OF EXAM: 04/24/2022 COMPARISON: Radiograph 04/05/2022 HISTORY: 61-year-old male M25.511, Right shoulder pain. TECHNIQUE: Multiplanar, multisequence imaging of the right shoulder is performed without contrast. FINDINGS: The long head biceps tendon appears grossly intact. The extracapsular portion remains appropriately s ituated along the bicipital groove. Mild heterogeneity of the subscapularis tendon and suggestion of some intrasubstance change at the fo otprint. The majority of the tendon remains intact. There is moderate degenerative change at the acromioclavicular joint with joint space narrowing, reac tive subchondral marrow edema and cystic change, and capsular hypertrophy. No significant mass effect onto the underlying myotendinous junction of the supraspinatus. No significant effusion or thickening of the subacromial/subdeltoid bursa. However, there is diffuse edematous soft tissue replacement in the rotator cuff interval with thicken ing of the coracohumeral ligament and some edematous thickening of the axillary recess as well. Suspect a tiny articular sided rim rent tear at the mid supraspinatus tendon insertion measuring 5 mm long and 1.0 cm AP. Small, contiguous intrasubstance tear extends forward into some of the anterior supraspinatus tendon fibers and backward into some of the anterior infraspinatus tendon fibers. Overa ll AP standing of the tear is approximately 2.8 cm. Again, only a tiny articular sided communication seems to be present. No full-thickness tear is seen. No atrophy of the rotator cuff musculature. There is physiological and humeral joint fluid. Possible 5 mm paralabral cyst at the posterior aspect of the superior glenoid labrum, coronal image 17. Unable to identify a discrete labral tear given no narthrographic technique. There may be mild diffuse thickening of the glenohumeral joint articular cartilage. No Hill-Sachs deformity or os acromiale. Patchy red marrow is present in the seen in the setting of anemia, obesity, smoking, chronic disease. IMPRESSION: 1. Extensive edematous soft tissue replacement in the rotator cuff interval along with some edematous thickening of the axillary recess. Findings may be seen in the setting of adhesive capsulitis. Clini josh correlate. 2. Tiny rim rent tear of the mid supraspinous tendon communicating with the articular side. There is contiguous intrasubstance extension of tear both forward and backward to cover a span of 2.8 cm AP. A gain, only a tiny articular sided communication seems to be present. No high-grade partial thickness or full-thickness tear at this time. 3. Possible small 5 mm paralabral cyst along the posterior aspect of the superior glenoid labrum. Beckie ble to identify a discrete labral tear given nonarthrographic technique. 4. Moderate AC joint OA with reactive subchondral edema.
== END | disposition home or self-care (01) ==
LOC: RADMRIMAIN 14:05
PROVIDERS: ATTEND Orthopaedic Surgery
DX: M75.111 Incomplete rotator cuff tear or rupture of right shoulder, not specified as traumatic (principal); M19.011 Primary osteoarthritis, right shoulder; R60.0 Localized edema; Z96.611 Presence of right artificial shoulder joint

== ENCOUNTER → 2022-05-01 | Outpatient (CLI) | payer MEDICAID | END | disposition home or self-care (01) | LOC: LABWHC1 09:22 | DX: C61 Malignant neoplasm of prostate (principal) | CPT/HCPCS: 36415; 84153 ==

== ENCOUNTER → 2022-06-07 | Outpatient (CLI) | payer MEDICAID ==
[2022-06-07 23:09] LABS: Basophils # (A) 0.04 X 10*3/uL (0.00-0.10); Basophils % (A) 0.5 %; Eosinophils # (A) 0.18 X 10*3/uL (0.04-0.35); Eosinophils % (A) 2.3 %; HCT 48.8 % (39.6-50.0); HGB 15.5 g/dL (13.0-17.0); Immature Grans, Automated 0.5 %; Lymphocytes # (A) 1.68 X 10*3/uL (0.90-5.00); Lymphocytes % (A) 21.9 %; MCH 29.8 pg (27.0-32.0); MCHC 31.8 g/dL (32.0-37.0); MCV 93.7 fL (80.0-97.0); Mean Platelet Volume 9.6 fL (9.5-12.2); Monocytes # (A) 0.34 X 10*3/uL (0.20-1.00); Monocytes % (A) 4.4 %; NRBC Per 100 WBC 0 /100 WBCS (0.0-0.0); Neutrophils # (A) 5.39 X 10*3/uL (1.80-7.70); Neutrophils % (A) 70.4 %; Platelet Count 196 X 10*3/uL (140-440); RBC 5.21 X 10*6/uL (4.40-5.60); RDW 14.1 % (11.5-14.5); WBC 7.67 X 10*3/uL (4.50-10.00)
[2022-06-07 23:10] LABS: Anion Gap 12.3 mmol/L (10.00-18.00); Carbon Dioxide 26.7 mmol/L (20.0-27.5); Potassium 4.3 mmol/L (3.5-5.5)
== END | disposition home or self-care (01) ==
LOC: LABPAT 15:37
PROVIDERS: ATTEND Orthopaedic Surgery
DX: Z01.818 Encounter for other preprocedural examination (principal); I44.5 Left posterior fascicular block; M75.41 Impingement syndrome of right shoulder; R94.31 Abnormal electrocardiogram [ECG] [EKG]
CPT/HCPCS: 80051; 85025; 93005

== ENCOUNTER → 2022-11-05 | Outpatient (CLI) | payer MEDICAID | END | disposition home or self-care (01) | LOC: LABWHC1 13:01 | PROVIDERS: ATTEND Urology | DX: C61 Malignant neoplasm of prostate (principal) | CPT/HCPCS: 36415; 84153 ==

== ENCOUNTER → 2022-11-30 | Outpatient (CLI) | payer MEDICAID ==
[2022-11-30 23:13] LABS: Appearance,Urine Clear (Clear); Bilirubin,Urine Negative (Negative); Blood,Urine Negative (Negative); Color,Urine Yellow (Yellow); Ketones,Urine Negative (Negative); Nitrite,Urine Negative (Negative); PH, Urine 5.5; Specific Gravity,Urine 1.017 (1.001-1.030); Urobilinogen,Urine 0.2 E.U./DL
[2022-11-30 23:16] LABS: Basophils # (A) 0.06 X 10*3/uL (0.00-0.10); Basophils % (A) 0.8 %; Eosinophils # (A) 0.19 X 10*3/uL (0.04-0.35); Eosinophils % (A) 2.6 %; HCT 44.2 % (39.6-50.0); HGB 14.4 d/dL (12.0-15.0); Lymphocytes % (A) 22.8 %; MCHC 32.6 d/dL (32.0-37.0); MCV 92.1 FL (80.0-97.0); Mean Platelet Volume 9.8 FL (9.5-12.2); Monocytes # (A) 0.35 X 10*3/uL (0.20-1.00); Monocytes % (A) 4.7 %; NRBC Per 100 WBC 0 X 10*3/uL (0.00-0.01); Neutrophils # (A) 5.11 X 10*3/uL (1.80-7.70); Neutrophils % (A) 68.7 %; Platelet Count 198 X 10*3/uL (140-440); RDW 13.5 % (11.5-14.5); WBC 7.44 X 10*3/uL (4.50-10.00)
[2022-11-30 23:55] LABS: % Iron Saturation 25.86 (15.00-50.00); ALT 27 U/L (10-49); AST 19 U/L (14-35); Albumin 4.3 d/dL (3.8-4.9); Albumin/Globulin Ratio 1.59 Ratio (1.60-3.17); Alkaline Phosphatase 150 U/L (41-126); BUN/Creat Ratio 19.75 Ratio (12.00-20.00); Blood Urea Nitrogen 47.4 mg/dL (9.0-27.0); Calcium 9.7 mg/dL (8.7-10.3); Carbon Dioxide 25.3 mmol/L (21.6-31.8); Chloride 103 mmol/L (96-109); Globulin 2.7 d/dL (1.6-3.3); Glucose 90 mg/dL (70-110); Iron 75 UG/DL (65-175); Potassium 4.4 mmol/L (3.5-5.5); Sodium 140 mmol/L (135-145); Total Bilirubin 0.6 mg/dL (0.3-1.2); Total Iron Binding Capacity 290 UG/DL (228-460); Uric Acid 5.7 mg/dL (3.7-8.7)
== END | disposition home or self-care (01) ==
LOC: LABWHC1 11:17
PROVIDERS: ATTEND Internal Medicine
DX: E55.9 Vitamin D deficiency, unspecified (principal); N18.32 Chronic kidney disease, stage 3b; N39.0 Urinary tract infection, site not specified; M10.9 Gout, unspecified; D63.1 Anemia in chronic kidney disease; N25.81 Secondary hyperparathyroidism of renal origin; R80.9 Proteinuria, unspecified
CPT/HCPCS: 36415; 80053; 81001; 82043; 82306; 82570; 82728; 83540; 83550; 83735; 83970; 84100; 84550; 85025

== ENCOUNTER → 2023-02-11 | Outpatient (CLI) | payer MEDICAID ==
[2023-02-11 15:23] LABS: Appearance,Urine Clear (Clear); Bilirubin,Urine Negative (Negative); Blood,Urine Negative (Negative); Color,Urine Yellow (Yellow); Ketones,Urine Negative (Negative); Nitrite,Urine Negative (Negative); Specific Gravity,Urine 1.012 (1.001-1.030)
[2023-02-11 15:51] LABS: HCT 45.7 % (39.6-50.0); HGB 15.1 d/dL (13.0-17.0); MCH 30.5 pg (27.0-32.0); MCV 92.3 FL (80.0-97.0); Mean Platelet Volume 9.8 FL (9.5-12.2); NRBC Per 100 WBC 0 X 10*3/uL (0.00-0.01); Platelet Count 181 X 10*3/uL (140-440); RBC 4.95 X 10*6/uL (4.40-5.60); RDW 14.1 % (11.5-14.5); WBC 7.65 X 10*3/uL (4.50-10.00)
[2023-02-11 16:27] LABS: Iron 78 UG/DL (65-175); Magnesium 2.2 mg/dL (1.5-2.4); Phosphorus 3.1 mg/dL (2.4-5.1)
[2023-02-11 16:28] LABS: % Iron Saturation 29.77 (15.00-50.00); ALT 24 U/L (10-49); AST 20 U/L (14-35); Albumin 4.4 d/dL (3.8-4.9); Albumin/Globulin Ratio 1.83 Ratio (1.60-3.17); Alkaline Phosphatase 136 U/L (41-126); BUN/Creat Ratio 15.09 Ratio (12.00-20.00); Blood Urea Nitrogen 33.2 mg/dL (9.0-27.0); Calcium 9.6 mg/dL (8.7-10.3); Carbon Dioxide 25.1 mmol/L (21.6-31.8); Chloride 104 mmol/L (96-109); Globulin 2.4 d/dL (1.6-3.3); Glucose 106 mg/dL (70-110); Potassium 4.2 mmol/L (3.5-5.5); Sodium 141 mmol/L (135-145); Total Bilirubin 0.6 mg/dL (0.3-1.2); Total Iron Binding Capacity 262 UG/DL (228-460); Total Protein 6.8 d/dL (6.2-8.2)
[2023-02-11 19:47] LABS: Urine Creatinine 84.9 mg/dL (39.0-259.0)
== END | disposition home or self-care (01) ==
LOC: LABWHC1 08:59
PROVIDERS: ATTEND Nurse Practitioner Adult Health
DX: N18.32 Chronic kidney disease, stage 3b (principal); D64.9 Anemia, unspecified; N39.0 Urinary tract infection, site not specified; N25.81 Secondary hyperparathyroidism of renal origin; E55.9 Vitamin D deficiency, unspecified; M10.9 Gout, unspecified; R80.9 Proteinuria, unspecified
CPT/HCPCS: 36415; 80053; 81001; 82043; 82306; 82570; 82728; 83540; 83550; 83735; 83970; 84100; 84550; 85027

== ENCOUNTER → 2023-03-07 | Outpatient (CLI) | payer MEDICAID ==
--- NOTE | 2023-03-07 13:51 | US ---
EXAMINATION TYPE: US kidneys/renal and bladder DATE OF EXAM: 03/07/2023 COMPARISON: 05/10/2020 CLINICAL INDICATION: Male, 62 years old with history of N18.32 CHRONIC KIDNEY DISEASE, STAGE 3B; CKD EXAM MEASUREMENTS: Right Kidney: 8.6x3.4x3.9 cm Left Kidney: 8.9x4.3x4.5 cm Right Kidney: No hydronephrosis or masses seen Left Kidney: No hydronephrosis or masses seen Bladder: wnl Bilateral Jets seen: Yes There is no evidence for hydronephrosis at this point in time. No nephrolithiasis is seen. No nathaly s are identified. The urinary bladder is anechoic. Bilateral ureteral jets are seen. IMPRESSION: Diminutive kidneys otherwise unremarkable study.
== END | disposition home or self-care (01) ==
LOC: RADUSWWP 11:56
PROVIDERS: ATTEND Internal Medicine
DX: N18.32 Chronic kidney disease, stage 3b (principal)
CPT/HCPCS: 76770

== ENCOUNTER → 2023-04-29 | Outpatient (CLI) | payer MEDICAID ==
[2023-04-29 18:24] LABS: HCT 49.2 % (39.6-50.0); HGB 16.2 g/dL (13.0-17.0); MCH 30.4 pg (27.0-32.0); MCHC 32.9 g/dL (32.0-37.0); MCV 92.3 FL (80.0-97.0); Mean Platelet Volume 9.5 FL (9.5-12.2); NRBC Per 100 WBC 0 X 10*3/uL (0.00-0.01); Platelet Count 172 X 10*3/uL (140-440); RBC 5.33 X 10*6/uL (4.40-5.60); RDW 14.3 % (11.5-14.5); WBC 7.12 X 10*3/uL (4.50-10.00)
[2023-04-29 18:47] LABS: % Iron Saturation 32.85 (15.00-50.00); ALT 26 U/L (10-49); AST 15 U/L (14-35); Albumin 4.4 g/dL (3.8-4.9); Albumin/Globulin Ratio 1.69 Ratio (1.60-3.17); Alkaline Phosphatase 135 U/L (41-126); BUN/Creat Ratio 18.95 Ratio (12.00-20.00); Blood Urea Nitrogen 37.9 mg/dL (9.0-27.0); Calcium 10.1 mg/dL (8.7-10.3); Carbon Dioxide 24.7 mmol/L (21.6-31.8); Chloride 103 mmol/L (96-109); Ferritin 89.9 ng/mL (22.0-322.0); Globulin 2.6 g/dL (1.6-3.3); Glucose 90 mg/dL (70-110); Iron 90 UG/DL (65-175); Magnesium 1.9 mg/dL (1.5-2.4); Phosphorus 3.8 mg/dL (2.4-5.1); Potassium 4.2 mmol/L (3.5-5.5); Prostate Specific Antigen 0.02 ng/mL (0.000-4.500); Sodium 140 mmol/L (135-145); Total Bilirubin 0.6 mg/dL (0.3-1.2); Total Iron Binding Capacity 274 UG/DL (228-460); Uric Acid 4.5 mg/dL (3.7-8.7)
[2023-04-29 21:34] LABS: Appearance,Urine Clear (Clear); Bilirubin,Urine Negative (Negative); Blood,Urine Negative (Negative); Color,Urine Yellow (Yellow); Ketones,Urine Negative (Negative); Nitrite,Urine Negative (Negative); Specific Gravity,Urine 1.011 (1.001-1.030); Urobilinogen,Urine 0.2 E.U./DL
[2023-04-29 23:04] LABS: Urine Creatinine 31.3 mg/dL (39.0-259.0)
== END | disposition home or self-care (01) ==
LOC: LABWHC1 14:51
PROVIDERS: ATTEND Urology
DX: C61 Malignant neoplasm of prostate (principal); N39.0 Urinary tract infection, site not specified; N18.32 Chronic kidney disease, stage 3b; E55.9 Vitamin D deficiency, unspecified; N25.81 Secondary hyperparathyroidism of renal origin; M10.9 Gout, unspecified; D63.1 Anemia in chronic kidney disease; E11.22 Type 2 diabetes mellitus with diabetic chronic kidney disease; R80.9 Proteinuria, unspecified
CPT/HCPCS: 36415; 80053; 81003; 82043; 82306; 82570; 82728; 83036; 83540; 83550; 83735; 83970; 84100; 84153; 84550; 85027

== ENCOUNTER → 2023-09-06 | Outpatient (CLI) | payer MEDICAID ==
[2023-09-06 13:27] LABS: Appearance,Urine Clear (Clear); Bilirubin,Urine Negative (Negative); Blood,Urine Negative (Negative); Color,Urine Yellow (Yellow); Ketones,Urine Negative (Negative); Nitrite,Urine Negative (Negative); PH, Urine 5.5; Specific Gravity,Urine 1.019 (1.001-1.030); Urobilinogen,Urine 0.2 E.U./DL
[2023-09-06 13:34] LABS: HCT 50.6 % (39.6-50.0); HGB 16.3 g/dL (13.0-17.0); MCH 30.1 pg (27.0-32.0); MCHC 32.2 g/dL (32.0-37.0); MCV 93.4 FL (80.0-97.0); Mean Platelet Volume 9.6 FL (9.5-12.2); NRBC Per 100 WBC 0 X 10*3/uL (0.00-0.01); Platelet Count 183 X 10*3/uL (140-440); RBC 5.42 X 10*6/uL (4.40-5.60); RDW 14.4 % (11.5-14.5); WBC 7.55 X 10*3/uL (4.50-10.00)
[2023-09-06 14:16] LABS: ALT 28 U/L (10-49); AST 18 U/L (14-35); Albumin 4.6 g/dL (3.8-4.9); Alkaline Phosphatase 117 U/L (41-126); BUN/Creat Ratio 22.29 Ratio (12.00-20.00); Blood Urea Nitrogen 46.8 mg/dL (9.0-27.0); Calcium 9.8 mg/dL (8.7-10.3); Carbon Dioxide 23.3 mmol/L (21.6-31.8); Chloride 104 mmol/L (96-109); Globulin 2.7 g/dL (1.6-3.3); Glucose 105 mg/dL (70-110); Iron 101 UG/DL (65-175); Magnesium 2.2 mg/dL (1.5-2.4); Phosphorus 3.4 mg/dL (2.4-5.1); Potassium 4.3 mmol/L (3.5-5.5); Sodium 141 mmol/L (135-145); Total Bilirubin 0.7 mg/dL (0.3-1.2); Total Iron Binding Capacity 307 UG/DL (228-460); Total Protein 7.3 g/dL (6.2-8.2); Uric Acid 4.2 mg/dL (3.7-8.7)
== END | disposition home or self-care (01) ==
LOC: LABWHC1 09:23
PROVIDERS: ATTEND Internal Medicine Nephrology
DX: N18.32 Chronic kidney disease, stage 3b (principal); D63.1 Anemia in chronic kidney disease; N39.0 Urinary tract infection, site not specified; E55.9 Vitamin D deficiency, unspecified; N25.81 Secondary hyperparathyroidism of renal origin; M10.9 Gout, unspecified; R80.9 Proteinuria, unspecified
CPT/HCPCS: 36415; 80053; 81003; 82043; 82306; 82570; 82728; 83540; 83550; 83735; 83970; 84100; 84550; 85027

== ENCOUNTER → 2024-01-03 | Outpatient (CLI) | payer MEDICAID | END | disposition home or self-care (01) | LOC: LABWHC1 10:05 | PROVIDERS: ATTEND Internal Medicine Nephrology | CPT/HCPCS: 36415; 80053; 82043; 82306; 82570; 82728; 83540; 83550; 83735; 83970; 84100; 84550; 85027 ==

== ENCOUNTER → 2024-01-29 | Outpatient (CLI) | payer MEDICAID ==
--- NOTE | 2024-01-29 11:28 | CA ---
Exercise Stress Test Report Name: Kevin Gunter Exam Date: 01/29/2024 10:48 Exam Location: [facility] Ht (in): 56 Wt (lb): 159 BSA: 1.61 Ordering Phys: David Womack MD Referring Phys: Elena Ray Technologist: Lonny Longo Age: 63 Gender: M : 1960 Procedure CPT: Indications: R06.02 SHORTNESS OF BREATH ICD-10 Codes: Patient History: Long standing renal disease and shortness of breath. Medications: Meds past 24 hrs: Pretest Chest Pain: STRESS TEST Rigoberto Protocol Exercise Duration (min:sec): 07:[address] Depressions (mm): Angina Score: Burk Score: Resting HR (bpm): 75 Peak HR (bpm): 145 Resting BP (mmHg): 132 / 87 Peak BP (mmHg): 208 / 82 MPHR: 159 Target HR: 135 % MPHR: 91 METS: 8.9 Total Dose: Peak Dose: Atropine: Double Product: 80906 BP Response: Stress Termination: Reached target heart rate Stress Symptoms: No chest pain or symptoms Stress Summary: ECG ANALYSIS Resting ECG: Stress ECG: CONCLUSIONS Baseline EKG revealed normal sinus rhythm with a incomplete right bundle branch block pattern. Patient walked on a standard Rigoberto protocol for a total duration of 7 minutes and achieved a maximal heart rate of 145 bpm. The QRS somewhat widened with increased rate. Patient did not have angina there was no significant arrhythmia peak blood pressure was 2 8/82. Because of QRS widening this is a inconclusive stress test. However no anginal symptoms are noted. Final impression: Fair exercise capacity inconclusive stress test because of resting EKG abnormalities. Advised to have a stress echo or a Lexiscan stress test in view of uninterpretable EKG Dr. Roselyn Xiao MD (Electronically Signed) Final Date: 29 January 2024 11:27
--- NOTE | 2024-01-29 12:01 | CA ---
Transthoracic Echo Report Name: Kevin Gunter Age: 63 Gender: M : 1960 Exam Date: 01/29/2024 11:08 Exam Location: [place] Echo Ht (in): 66 Wt (lb): 159 Ordering Physician: David Womack MD ([id number]) Attending/Referring Phys: Elena Ray [facility] Airplane Electrician Jessica Marroquin RDCS Procedure CPT: Indications: R06.02 SHORTNESS OF BREATH Cardiac Hx: Technical Quality: Fair Contrast 1: Total Dose (mL): Contrast 2: Total Dose (mL): MEASUREMENTS (Male / Female) Normal Values 2D ECHO LV Diastolic Diameter PLAX 4.0 cm 4.2 - 5.9 / 3.9 - 5.3 cm LV Systolic Diameter PLAX 3.3 cm IVS Diastolic Thickness 0.9 cm 0.6 - 1.0 / 0.6 - 0.9 cm LVPW Diastolic Thickness 1.2 cm 0.6 - 1.0 / 0.6 - 0.9 cm LV Relative Wall Thickness 0.5 RV Internal Dim ED PLAX 2.1 cm LA Systolic Diameter LX 3.4 cm 3.0 - 4.0 / 2.7 - 3.8 cm LV Diastolic Volume MOD BP 49.9 cm??? 67 - 155 / 56 - 104 cm??? LV Systolic Volume MOD BP 19.4 cm??? 22 - 58 / 19 - 49 cm??? LV Ejection Fraction MOD BP 61.1 % >= 55 % LV Cardiac Index MOD BP 1733.6 cm???/min???m??? LV Diastolic Volume MOD 4C 63.1 cm??? LV Systolic Volume MOD 4C 22.0 cm??? LV Ejection Fraction MOD 4C 65.2 % LV Cardiac Index MOD 4C 2340.5 cm???/min???m??? LV Diastolic Length 4C 6.8 cm LV Systolic Length 4C 6.0 cm LV Diastolic Volume MOD 2C 38.0 cm??? LV Systolic Volume MOD 2C 17.4 cm??? LV Ejection Fraction MOD 2C 54.2 % LV Cardiac Index MOD 2C 1170.3 cm???/min???m??? LV Diastolic Length 2C 6.5 cm LV Systolic Length 2C 5.9 cm LA Volume 31.1 cm??? 18 - 58 / 22 - 52 cm??? LA Volume Index 16.9 cm???/m??? 16 - 28 cm???/m??? M-MODE Aortic Root Diameter MM 3.4 cm LA Systolic Diameter MM 3.6 cm LA Ao Ratio MM 1.1 AV Cusp Separation MM 2.1 cm DOPPLER MV Area PHT 3.0 cm??? Mitral E Point Velocity 61.3 cm/s Mitral A Point Velocity 73.4 cm/s Mitral E to A Ratio 0.8 MV Deceleration Time 249.5 ms TR Peak Velocity 221.3 cm/s TR Peak Gradient 19.6 mmHg Right Ventricular Systolic Press 24.6 mmHg FINDINGS Left Ventricle Left ventricular ejection fraction is estimated at 55-60%. Left ventricular cavity size normal. Left ventricular wall thickness normal. No obvious regional wall motion abnormalities. Right Ventricle Normal right ventricular size and function. Right ventricular systolic pressure within normal limits. Right Atrium Normal right atrial size. Left Atrium Normal left atrial size. Mitral Valve Structurally normal mitral valve. Trace mitral regurgitation. No mitral stenosis. Aortic Valve Trileaflet aortic valve. No aortic valve stenosis or regurgitation. Tricuspid Valve Structurally normal tricuspid valve. Trace to mild tricuspid regurgitation. No tricuspid stenosis. Pulmonic Valve Structurally normal pulmonic valve. Trace pulmonic regurgitation. No pulmonic stenosis. Pericardium No pericardial or pleural effusion. Aorta Normal size aortic root and proximal ascending aorta. CONCLUSIONS Normal LV size and systolic function. Minimal mitral and tricuspid regurgitation. No pulmonary hypertension. No pericardial effusion Previewed by: Dr. Roselyn Xiao MD (Electronically Signed) Final Date: 29 January 2024 12:01
== END | disposition home or self-care (01) ==
LOC: RADNMMAIN 10:17
PROVIDERS: ATTEND Internal Medicine Interventional Cardiology
DX: R06.02 Shortness of breath
CPT/HCPCS: 93017; 93306

== ENCOUNTER → 2024-05-04 | Outpatient (CLI) | payer MEDICAID ==
[2024-05-04 11:38] LABS: Appearance,Urine Clear (Clear); Bilirubin,Urine Negative (Negative); Blood,Urine Negative (Negative); Color,Urine Light Yellow; Glucose,Urine (UA) Negative (Negative); Ketones,Urine Negative (Negative); Leukocyte Esterase,Urine Negative (Negative); Mucus,Urine Rare /hpf; Nitrite,Urine Negative (Negative); PH, Urine 5.5 (5.0-8.0); Protein,Urine 2+ (Negative); RBC,Urine 1 /hpf (0-5); Specific Gravity,Urine 1.017 (1.001-1.035); Urobilinogen,Urine <2.0 mg/dL (<2.0); WBC,Urine 1 /hpf (0-5)
[2024-05-04 15:52] LABS: Basophils # (A) 0.03 X 10*3/uL (0.00-0.10); Basophils % (A) 0.6 %; Eosinophils # (A) 0.09 X 10*3/uL (0.04-0.35); Eosinophils % (A) 1.7 %; HCT 48.6 % (39.6-50.0); HGB 15.9 g/dL (13.0-17.0); Lymphocytes % (A) 18.6 %; MCH 29.9 pg (27.0-32.0); MCHC 32.7 g/dL (32.0-37.0); MCV 91.4 FL (80.0-97.0); Mean Platelet Volume 9.9 FL (9.5-12.2); Monocytes # (A) 0.26 X 10*3/uL (0.20-1.00); Monocytes % (A) 4.8 %; NRBC Per 100 WBC 0 X 10*3/uL (0.00-0.01); Neutrophils # (A) 3.98 X 10*3/uL (1.80-7.70); Neutrophils % (A) 74.1 %; Platelet Count 181 X 10*3/uL (140-440); RBC 5.32 X 10*6/uL (4.40-5.60); RDW 13.1 % (11.5-14.5); WBC 5.37 X 10*3/uL (4.50-10.00)
[2024-05-04 16:16] LABS: % Iron Saturation 54.62 (15.00-50.00); ALT 27 U/L (10-49); AST 21 U/L (14-35); Albumin 4.4 g/dL (3.8-4.9); Albumin/Globulin Ratio 1.76 Ratio (1.60-3.17); Alkaline Phosphatase 115 U/L (41-126); Blood Urea Nitrogen 28.9 mg/dL (9.0-27.0); Calcium 9.9 mg/dL (8.7-10.3); Carbon Dioxide 25.3 mmol/L (21.6-31.8); Chloride 105 mmol/L (96-109); Globulin 2.5 g/dL (1.6-3.3); Glucose 95 mg/dL (70-110); Iron 142 UG/DL (65-175); Phosphorus 2.8 mg/dL (2.4-5.1); Potassium 4.6 mmol/L (3.5-5.5); Prostate Specific Antigen 0.02 ng/mL (0.000-4.500); Sodium 141 mmol/L (135-145); Total Bilirubin 0.9 mg/dL (0.3-1.2); Total Iron Binding Capacity 260 UG/DL (228-460); Total Protein 6.9 g/dL (6.2-8.2); Uric Acid 5.4 mg/dL (3.7-8.7)
== END | disposition home or self-care (01) ==
LOC: LABWHC1 10:42
PROVIDERS: ATTEND Internal Medicine
DX: N39.0 Urinary tract infection, site not specified (principal); N18.32 Chronic kidney disease, stage 3b; D63.1 Anemia in chronic kidney disease; E55.9 Vitamin D deficiency, unspecified; N25.81 Secondary hyperparathyroidism of renal origin; M10.9 Gout, unspecified; C61 Malignant neoplasm of prostate
CPT/HCPCS: 36415; 80053; 81001; 82043; 82306; 82570; 82728; 83540; 83550; 83735; 83970; 84100; 84153; 84550; 85025

== ENCOUNTER → 2024-05-04 | Outpatient (CLI) | payer MEDICAID ==
--- NOTE | 2024-05-05 07:22 | CA ---
Stress Echo Report Kevin Gunter Age: 63 Gender: M : 1960 Exam Date: 05/04/2024 09:34 Exam Location: [facility] Ht (in): 66 Wt (lb): 160 Ordering Physician: David Womack MD ([id number]) Referring Physician: DAVID WOMACK,, Lining Machine Operator: NITA Technologist Procedure CPT: Indication: sob ICD-9 Codes: Rhythm: Patient History: Shortness of breath Cardiac Medications: Medications in past 24 hours: Contrast: Stress Results Protocol: Rigoberto Total dose(mL): Exercise Duration (min:sec): 7.[address] Depression (mm): Angina Score: Burk Score: METS: 9.3 Resting HR: 84 Resting BP: 140 / 83 Peak HR: 156 Peak BP: 205 / 84 Max Predicted HR: 159 98 % Max Predicted HR Target HR: 135 Double Product: [id number] Stress Summary: BP Response: Reason for Termination: MAX EXERTION/TARGET HR Cardiac Symptoms: NO SYMPTOMS ECG Analysis Resting ECG: Stress ECG: Arrhythmia: Echo Analysis Resting Echo: Peak Echo Analysis: MEASUREMENTS (Male/Female) Normal Values CONCLUSIONS Baseline EKG revealed normal sinus rhythm with a right bundle branch block pattern. Patient walked on a standard Rigoberto protocol for a total duration of 7 minutes 45 seconds and achieved a maximum heart rate of 156 bpm which is 98% of predicted maximal. Resting blood pressure was 140/83 and peak blood pressure was 205/84. He developed fatigue and shortness of breath. He did not have any anginal symptoms. EKG did not reveal any new ST segment changes to indicate ischemia. There was no significant arrhythmia. This is a negative stress test with fair exercise capacity. Baseline echo images revealed normal wall motion wall thickening of all segments. At peak exercise there was good augmentation of left ventricle wall motion wall thickening of all segments are distant but there is no evidence of any stress-induced ischemia on this study. Final impression: #1 normal stress test by EKG criteria with fair exercise capacity without evidence of ischemia #2 normal stress echocardiogram without evidence of ischemia Dr. Roselyn Xiao MD (Electronically Signed) Final Date: 05 May 2024 07:21
== END | disposition home or self-care (01) ==
LOC: RADNMMAIN 08:57
PROVIDERS: ATTEND Internal Medicine Interventional Cardiology
DX: I45.10 Unspecified right bundle-branch block (principal); R07.9 Chest pain, unspecified; R06.02 Shortness of breath
CPT/HCPCS: 93351

== ENCOUNTER → 2024-11-06 | Outpatient (CLI) | payer MEDICAID ==
[2024-11-07 01:21] LABS: BUN/Creat Ratio 16.32 Ratio (12.00-20.00); Calcium 9.5 mg/dL (8.7-10.3); Carbon Dioxide 24.1 mmol/L (21.6-31.8); Chloride 103 mmol/L (96-109); Glucose 89 mg/dL (70-110); Phosphorus 3.2 mg/dL (2.4-5.1); Potassium 4.5 mmol/L (3.5-5.5); Sodium 140 mmol/L (135-145); Uric Acid 5.4 mg/dL (3.7-8.7)
[2024-11-07 05:58] LABS: HCT 48.8 % (39.6-50.0); HGB 15.8 g/dL (13.0-17.0); MCH 30.2 pg (27.0-32.0); MCHC 32.4 g/dL (32.0-37.0); MCV 93.1 FL (80.0-97.0); Mean Platelet Volume 9.9 FL (9.5-12.2); NRBC Per 100 WBC 0 X 10*3/uL (0.00-0.01); Platelet Count 182 X 10*3/uL (140-440); RBC 5.24 X 10*6/uL (4.40-5.60); RDW 13.2 % (11.5-14.5); WBC 6.97 X 10*3/uL (4.50-10.00)
[2024-11-07 09:27] LABS: Appearance,Urine Clear (Clear); Bilirubin,Urine Negative (Negative); Blood,Urine Negative (Negative); Color,Urine Yellow (Yellow); Ketones,Urine Negative (Negative); Nitrite,Urine Negative (Negative); PH, Urine 5.5; Urobilinogen,Urine 0.2 E.U./DL
[2024-11-07 09:33] LABS: Bacteria,Urine None Seen (None Seen)
== END | disposition home or self-care (01) ==
LOC: LABWHC1 11:06
PROVIDERS: ATTEND Nurse Practitioner Adult Health
DX: N18.32 Chronic kidney disease, stage 3b (principal); D63.1 Anemia in chronic kidney disease; N39.0 Urinary tract infection, site not specified; E55.9 Vitamin D deficiency, unspecified; N25.81 Secondary hyperparathyroidism of renal origin; M10.9 Gout, unspecified
CPT/HCPCS: 36415; 80048; 81001; 82043; 82306; 82570; 83735; 83970; 84100; 84550; 85027